=== PATIENT | male | born 1965 | race Caucasian/White ===

== ENCOUNTER 2019-09-02 11:00 | Outpatient (RCR) | payer OTHER, SELFPAY ==
--- NOTE | 2019-08-13 15:46 | PTOPEVAL ---
PHYSICAL THERAPY EVALUATION AND PLAN OF CARE 08-13-2019 The PT evaluation was completed for the diagnosis of back pain, with radiculopathy. The plan of treatment is scheduled for 2x/week for 3 weeks. Thank you for referring Evan to [facility]. Please review, sign, date and return this plan of care [facility]. I agree with and certify that the following plan of care is medically necessary. Referring Physician Date Attending Provider: Adalgisa Winston, BENCH MOLDER *PT Outpatient Evaluation Start: 08/13/19 12:37 Document 08/13/19 12:30 RASHMI (Rec: 08/13/19 13:27 RASHMI [email or web address]) Therapy Assessment Status Assessment Status Assessment Status Evaluation Outpatient Past Medical History Neurological History Hx Other Neurological Disorders Yes: syncopy episodes-have not had past month Cardiovascular History Hx Hypertension Yes: meds Respiratory History Hx Respiratory Disorders No Significant History Gastrointestinal History Hx Hernia Yes: hernia repair; have hernia again Hx Other Gastrointestinal Disorders Yes: colon resection surgery; then develop stricture-surg Genitourinary History Hx Other Genitourinary Disorders Yes: enlarged prostate- increase urination Musculoskeletal History Hx Arthritis Yes: await shoulder surgery L- rot cuff repair Hx Back Pain Yes: chronic pain >10 yr Hx Orthopedic Surgery Yes: R knee arthroscopy Hx Other Musculoskeletal Disorders Yes: neck pain;B knee pain,B sh pain;R ankle bones deteriorate Hematological History Hx Anemia Yes: monitoring iron Endocrine History Hx Diabetes Yes: monitoring HEENT History Hx Other HEENT Disorders Yes: ringing in ears Evaluation Information Problem Diagnosis lumbar spondylosis with radiculopathy Onset 6 months Subjective Information gradual increase in chronic Query Text:As Reported By Patient/ low back pain; saw pain Family management dr, will not do injections until have PT; Diagnostic Tests MRI For This Problem Yes: per pt-2 herniated discs, degenerative disc disease Previous Treatments Previous Treatments For This Problem no PT treatment for back; Prior Level of Function Activity Level (Last 3 Months) Occupation not working outside home;not work x 3 yrs;on disability; Hand Dominance Left Activity of Daily Living Ability Independent Indoor/Home Mobility Independent Community Mobility Independent
--- NOTE | 2019-09-02 11:36 | PTOPEVAL ---
PHYSICAL THERAPY RE-EVALUATION 09-02-2019 Evan has received 5 Physical Therapy sessions, from August 13 to today, for the diagnosis of lumbar spondylosis. Compared to the initial evaluation: pain rating is the same; continues to have radicular pain into L buttock; reported sitting tolerance is less; Oswestry self assessment limitation has improved from 54% to 44% limitation; hamstring flexibility and standing posture is the same. Evan has been educated on a home exercise program for stretching and strengthening his trunk and hips. The electrical stim and heat decrease his pain. A home TENS unit has been discussed with him. He has multiple areas of pain--neck, shoulders, abdomen from hernia, back and knees. Mr. Ambrosio has a follow up appointment. If PT is to continue, please give him a new script to continue PT treatment. If an additional order is not received, he will be discharged from PT services. Thank you for referring Evan to [facility]. Please review, sign, date and return this plan of care AARON. I agree with and certify that the following plan of care is medically necessary. Referring Physician Date Attending Provider: Adalgisa Winston, BRILLIANDEER LOOPER *PT Outpatient Re-Evaluation Document 09/02/19 11:06 RASHMI (Rec: 09/02/19 11:28 RASHMI [email or web address]) Subjective Information Evan reports: since therapy Query Text:As Reported By Patient/ has started, back pain is little Family worse- but always have had good days and bad days; have been doing exercises at home; not sure any different since started therapy; not very active; knees more sore and neck and shoulder hurting today too; also have pain from hernia- wearing binder to contain it; Self assessment Oswestry score 44% limitation Pain Assessment Timing of Pain Assessment Timing of Pain Assessment Assessment Pain Scale Pain Scale Used Numeric (1 - 10) Self Report Pain Assessment Bilateral Back Reported Pain Level 5 Radicular Pain Location into L buttock; stiff, sharp Pain Frequency Chronic Current Pain Intensity 5 Lowest Pain Intensity 2 Greatest Pain Intensity 5 Other Pain Aggravating Factors sit for 1 hour; stand and do dishes Pain Relief Interventions Used By Lying Supine Patient Pain Score Pain Score 5: Self Report Cervical and Lumbar ROM Lumbar ROM Lumbar Comments standing trunk flexion hands to below knees- increase back pain; trunk extension WNL increase back pain; supine hamstring length with
--- NOTE | 2019-09-07 11:51 | PCPTNOTE ---
PHYSICAL THERAPY UPDATED PLAN OF CARE Evan Ambrosio : 63 ordering provider: Adalgisa Winston [facility] Received additional PT orders to continue PT services. Refer to the reevaluation dated 09-02-2019 for his status. PLAN: continue PT treatment 2x/week for 4 weeks. Pleas sign and return this updated plan of care AARON. Thank you for referring Mr. Ambrosio for [facility] services. signature date
--- NOTE | 2019-09-23 11:46 | PCPTNOTE ---
PHYSICAL THERAPY DISCHARGE 09-23-2019 Attending Provider: Adalgisa Winston NP Patient:Evan Ambrosio Date of :1965 Evan called today and stated he was not needing any more therapy. Therefore he will be discharged from therapy at this time. Refer to the reevaluation dated 09-02-2019 for his status at the last PT session. Thank you for referring Mr. Ambrosio to [facility]. Please review, sign, date and return this discharge summary AARON. I have been updated about the patient's current status and I agree with discharge from the above service at this time. Referring Physician Date
== END 2019-09-24 15:35 | disposition home or self-care (01) ==
LOC: ANHPT 11:00
PROVIDERS: PCP Emergency Medicine; Visit Provider Nurse Practitioner Adult Health
DX: M47.26 Other spondylosis with radiculopathy, lumbar region (principal)
CPT/HCPCS: 97014; 97110; 97162; G0283

== ENCOUNTER 2023-08-25 11:42 | Outpatient (CLI) | payer OTHER, SELFPAY ==
[2023-08-25 12:14] LABS: Basophils Percent Auto 0.3 % (0.2-1.2); Eosinophils Absolute Auto 0.1 K/mm3 (0-0.3); Eosinophils Percent Auto 0.8 % (0-4.4); Hematocrit 46.5 % (42.0-52.0); Hemoglobin 15.6 g/dL (14.0-18.0); Immature Granulocyte Absolute 0.11 K/mm3 (0.00-0.031); Immature Granulocyte Percent A 0.9 % (0-0.5); Lymphocytes Percent Auto 16.4 % (18.3-44.2); Mean Corpuscular HGB Conc 33.5 g/dl (32-36); Mean Corpuscular Hemoglobin 31.8 pg (26-34); Mean Corpuscular Volume 94.9 fl (80-100); Mean Platelet Volume 9.6 fl (7.4-10.4); Monocytes Absolute Auto 0.9 K/mm3 (0.1-0.6); Monocytes Percent Auto 7.3 % (2.6-8.5); Neutrophils Absolute Auto 9.1 K/mm3 (1.3-6.7); Neutrophils Percent Auto 74.3 % (45.5-73.1); Platelet Count Result 203 k/mm3 (150-375); Red Cell Distribution Width 13.6 % (11.5-14.5); White Blood Count 12.2 K/mm3 (4.5-10.0)
[2023-08-25 14:10] LABS: Iron 118 ug/dL (49-181)
[2023-08-25 14:16] LABS: Alanine Aminotransferase 35 U/L (6-50); Albumin Level 4.2 g/dL (3.5-5.1); Alkaline Phosphatase 58 U/L (38-126); Anion Gap 6 mmol/L (8-16); Aspartate Amino Transferase 24 U/L (17-59); Bilirubin,Total 0.5 mg/dL (0.2-1.3); Blood Urea Nitrogen 19 mg/dL (9-20); CRP < 0.5 mg/dL (<1.0); Calcium 9.7 mg/dL (8.4-10.2); Carbon Dioxide 26 mmol/L (22-30); Chloride 102 mmol/L (98-107); Estimated Glomerular Filt Rate > 60; Glucose 99 mg/dL (65-110); Potassium 4.1 mmol/L (3.4-5.0); Sodium 134 mmol/L (137-145)
[2023-08-25 14:20] LABS: Percent Iron Saturation 42 % (20-50)
[2023-08-25 14:49] LABS: Erythrocyte Sedimentation Rate 6 mm/hr (0-20)
== END 2023-08-25 11:43 | disposition home or self-care (01) ==
LOC: ANHLAB 11:45
PROVIDERS: Nurse Practitioner Family; PCP Emergency Medicine; Visit Provider Internal Medicine Hematology & Oncology
DX: D72.829 Elevated white blood cell count, unspecified (principal); E53.8 Deficiency of other specified B group vitamins
CPT/HCPCS: 36415; 80053; 82607; 83540; 83550; 85025; 85055; 85652; 86140

== ENCOUNTER 2024-04-06 12:28 | Outpatient (CLI) | payer OTHER, SELFPAY ==
--- NOTE | 2024-04-06 15:00 | NEURO_ITS ---
Impression: # Complains of cramps in hands and feet. No history of neck or back surgery. # Left ulnar neuropathy across the elbow. # No responses noted from right peroneal and superficial peroneal nerves. # Needle/EMG exam revealed right EDB neurogenic changes raising the possibility of higher involvement. MRI of spine suggested before diagnosing for only right peroneal neuropathy. Nerve Conduction Studies Anti Sensory Summary Table Stim Site NR Peak (ms) P-T Amp (?V) Site1 Site2 Delta-P (ms) Dist (cm) Kwesi (m/s) Left Median Anti Sensory (2-3nd Digit) Wrist 3.7 29.6 Wrist 2-3nd Digit 3.7 14.0 38 Wrist 3.7 43.0 Wrist 2-3nd Digit 3.7 14.0 38 Right Median Anti Sensory (2-3nd Digit) Wrist 3.6 26.1 Wrist 2-3nd Digit 3.6 14.0 39 Wrist 3.7 24.3 Wrist 2-3nd Digit 3.6 14.0 39 Left Radial Anti Sensory (Base 1st Digit) Wrist 2.0 23.2 Wrist Base 1st Digit 2.0 0.0 Right Radial Anti Sensory (Base 1st Digit) Wrist 3.1 9.0 Wrist Base 1st Digit 3.1 0.0 Left Sup Fibular Anti Sensory (Ant Lat Mall) 14 cm 3.4 9.0 14 cm Ant Lat Mall 3.4 16.0 47 Right Sup Fibular Anti Sensory (Ant Lat Mall) NO RESPONSE 14 cm NR 14 cm Ant Lat Mall 16.0 Left Sural Anti Sensory (Lat Mall) Calf 4.5 6.6 Calf Lat Mall 4.5 16.0 36 Right Sural Anti Sensory (Lat Mall) Calf 3.6 21.8 Calf Lat Mall 3.6 16.0 44 Left Ulnar Anti Sensory (5th Digit) Wrist 2.8 26.2 Wrist 5th Digit 2.8 14.0 50 Right Ulnar Anti Sensory (5th Digit) Wrist 2.6 39.1 Wrist 5th Digit 2.6 14.0 54 Motor Summary Table Stim Site NR Onset (ms) O-P Amp (mV) Site1 Site2 Delta-0 (ms) Dist (cm) Kwesi (m/s) Left Median Motor (Abd Poll Brev) Wrist 3.4 3.7 Elbow Wrist 5.6 31.0 55 Elbow 9.0 3.1 Right Median Motor (Abd Poll Brev) Wrist 3.6 2.1 Elbow Wrist 5.5 31.0 56 Elbow 9.1 1.7 Left Peroneal Motor (Vastus Med) Ankle 4.2 2.9 Popit Ankle 9.5 45.0 47 Popit 13.7 2.7 Right Peroneal Motor (Vastus Med) NO RESPONSE Ankle NR Popit Ankle 0.0 Popit NR Left Tibial Motor (Abd Patel Brev) Ankle 4.5 2.4 Knee Ankle 9.9 46.0 46 Knee 14.4 3.0 Right Tibial Motor (Abd Patel Brev) Ankle 4.5 3.2 Knee Ankle 10.6 45.0 42 Knee 15.1 2.6 Left Ulnar Motor (Abd Dig Minimi) Wrist 2.5 4.5 A Elbow Wrist 6.6 32.0 48 A Elbow 9.1 4.0 B Elbow Wrist 4.4 24.0 55 B Elbow 6.9 4.4 Right Ulnar Motor (Abd Dig Minimi) Wrist 2.6 5.1 A Elbow Wrist 5.8 33.0 57 A Elbow 8.4 4.1 F Wave Studies NR F-Lat (ms) L-R F-Lat (ms) Left Median (Mrkrs) (Abd Poll Brev) 31.98 1.84 Right Median (Mrkrs) (Abd Poll Brev) 30.14 1.84 Left Peroneal (Mrkrs) (EDB) 58.32 Right Peroneal (Mrkrs) (EDB) NO RESPONSE NR Left Tibial (Mrkrs) (Abd Hallucis) 59.11 0.74 Right Tibial (Mrkrs) (Abd Hallucis) 59.84 0.74 Left Ulnar (Mrkrs) (Abd Dig Min) 31.33 0.76 Right Ulnar (Mrkrs) (Abd Dig Min) 30.57 0.76 EMG Side Muscle Nerve Root Ins Act Fibs Amp Dur Recrt Comment Right 1stDorInt Ulnar C8-T1 Nml Nml Nml Nml Nml Right Ext Indicis Radial (Post Int) C7-8 Nml Nml Nml Nml Nml Right Ext Digitorum Radial (Post Int) C7-8 Nml Nml N
== END 2024-04-06 12:29 | disposition home or self-care (01) ==
LOC: ANHNEURO 12:30
PROVIDERS: PCP Emergency Medicine; Visit Provider Student in an Organized Health Care Education/Training Program
DX: G56.22 Lesion of ulnar nerve, left upper limb (principal)
CPT/HCPCS: 95886; 95913

== ENCOUNTER 2024-10-09 08:56 | Outpatient (CLI) | payer OTHER, SELFPAY ==
--- NOTE | ~2024-10-09 | XR_ITS ---
EXAMINATION: XR orbit foreign body DATE: 10/09/2024 09:35 INDICATION: Orbital foreign body. TECHNIQUE: 3 views of the orbits were obtained. COMPARISON: None. FINDINGS: There is no fracture. No radiopaque foreign body. IMPRESSION: 1. No radiopaque foreign body. Reviewed, dictated and finalized at location A.
--- NOTE | ~2024-10-09 | MR_ITS ---
MRI of the lumbar spine Clinical History: Polyneuropathy Technique: Axial T2-weighted images, and sagittal T1-weighted, T2-weighted, and T2 fat-sat images wer e acquired. Findings: No acute fracture or subluxation identified. Vertebral bodies maintain normal height and al ignment. No suspicious bone marrow signal abnormality seen. At L1-L2, there is mild to moderate facet arthropathy without disc bulge or herniation. No spinal can al stenosis or neural foraminal narrowing. At L2-L3, there is no disc bulge or herniation. There is mild to moderate facet arthropathy. No centr al canal stenosis or neural foraminal narrowing. At L3-L4, there is minimal disc bulge with moderate facet arthropathy. No central canal stenosis or n eural foraminal narrowing. At L4-L5, there is degenerative disc narrowing with mild disc bulge and moderate facet arthropathy. N o central canal stenosis or definite neural foraminal narrowing. At L5-S1, there is moderate degenerative disc narrowing. There is disc bulge with moderate facet arth ropathy. No central canal stenosis. There is severe right neural foraminal narrowing. Left neural for amen preserved. Paravertebral soft tissues are unremarkable. Impression: Severe right neural foraminal narrowing at L5-S1. Additional mild degenerative changes. Please see de tails above. Reviewed, dictated and finalized at [facility]. Impression: Severe right neural foraminal narrowing at L5-S1. Additional mild degenerative changes. Please see details above.
--- OUTSIDE RECORDS SUMMARY | 2024-10-09 08:59 | XMS_ITS | Encounter Summary ---
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 us Historical Provider Final Res ult documented in this encounter Visit Diagnoses Not on filedocumented in this encounter Additional Health Concerns Infection Onset Date Last Indicated Resolved Time COVID: Suspected 10/18/2022 10/18/2022 10/18/2022 6:23 PM CDT COVID19 10/18/2022 10/18/2022 10/28/2022 3:05 AM CDT COVID: Recovered Comment:Added based on recent COVID infection. 10/28/2022 10/29/2022 01/26/2023 3:05 AM C DT documented as of this encounter Care Teams Industrial Court Magistrate Relationship Specialty Start Date End Date Brian Bryson MD PCP - General 08/30/18 Hao Gutierrez MD [address] [place] [address] [place] [id number] Consulting Physician Orthopedic Surgery 03/16/24 documented as of this encounter
--- OUTSIDE RECORDS SUMMARY | 2024-10-09 08:59 | XMS_ITS | Encounter Summary ---
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 Gender Identity Male 11/24/2023 12:05 PM CDT Sexual Orientation Not on file documented as of this encounter Plan of Treatment Not on file documented as of this encounter Procedures Procedure Name Priority Date/Time Associated Diagnosis Comments PROCEDURE - RESULT 04/13/2018 12 :00 AM CDT documented in this encounter Results * PROCEDURE - RESULT (04/13/2018 12:00 AM CDT) Narrative 04/13/2018 12:00 AM CDT Ordered by an unspecified [...] documented as of this encounter Care Teams Garbage Pick Up Worker Relationship Specialty Start Date End Date Brian Bryson MD PCP - General 08/30/18 Hao Gutierrez MD [address] [place] [address] [place] [id number] Consulting Physician Orthopedic Surgery 03/16/24 documented as of this encounter
--- OUTSIDE RECORDS SUMMARY | 2024-10-09 08:59 | XMS_ITS | Clinical Summary ---
Author Organization [address] Address [address] [place] [address] Care Team Providers Care Timber Hand Name Role Phone Brian Bryson MD Primary Care Provider [phone] Hao Gutierrez MD Unavailable [phone] Allergies Active Allergy Reactions Criticality Noted Date Comments Adhesive Rash,Blisters High 01/21/2023 Amoxicillin-Pot Clavulanate Other (See comments) Low 10/06/2018 NEAR SYNCOPE Cilazapril Hives,Other (See comments) Medium 04/17/2017 Diaphoresis Ciprofloxacin Rash,Other (See comments),Dizziness Medium 11/13/2017 Dizziness/Light Headed Adverse reaction Cold sweats, dizzy. Quetiapine Unknown 08/04/2019 Medications finasteride (PROSCAR) 5 mg tabletIndications:b enign prostatic hyperplasia with lower urinary tract sx Take 1 tablet (5 mg total) by mouth every morning 12/10/19 19 Active gabapentin (NEURONTIN) 600 mg tabletIndications:N europathic Pain Take 2 tablets (1,200 mg total) by mouth 2 (two) times a day Active losartan (COZAAR) 50 mg tabletIndications:h ypertension Take 1 tablet (50 mg total) by mouth every morning 03/23/20 20 Active ferrous sulfate 325 mg (65 mg of elemental iron) tabletIndications:I ana Deficiency Anemia Take 1 tablet (325 mg total) by mouth every morning Active ergocalciferol (VITAMIN D) 50,000 unit capsule Take 1 capsule (50,000 Units total) by mouth once a week Friday Active multivit jcesmrnn-nwhq-HY-ca lcium (THERA-M) 9 mg iron-400 mcg tabletIndications:V itamin Deficiency Prevention Take 1 tablet by mouth every morning Active tiZANidine (ZANAFLEX) 2 mg tabletIndications:M uscle Spasm Take 1 tablet (2 mg total) by mouth every 6 (six) hours as needed for muscle spasms Active acetaminophen ER (TYLENOL) 650 mg 8 hr tablet Take 2 tablets (1,300 mg total) by mouth every 8 (eight) hours as needed for pain Active rOPINIRole (REQUIP) 0.5 mg tabletIndications:R estless Legs Syndrome Take 1 tablet (0.5 mg total) by mouth nightly Active pantoprazole DR (PROTONIX) 20 mg EC tabletIndications:T reatment of Non-Bleeding Gastric Disorder Take 1 tablet (20 mg total) by mouth 2 (two) times a day Active UNABLE TO FIND B12 injection q monthly Active omeprazole (PriLOSEC) 40 mg capsule Take 1 capsule (40 mg total) by mouth daily Alternates with protonix due to insurance Active senna-docusate (PERICOLACE) 8.6-50 mgIndications:const ipation Take 2 tablets by mouth nightly 02/14/20 23 Active polyethylene glycol (MIRALAX) 17 gram packetIndications:c onstipation Take 1 packet (17 g total) by mouth daily 02/15/20 23 Active omega 1-gib-fis-fish oil (Fish OiL) 1,000 mg (120 mg-180 mg) capsuleIndications: hypertriglyceridemi a Take 1 capsule (1,000 mg total) by mouth 2 (two) times a day 02/14/20 23 Active atorvastatin (LIPITOR) 40 mg tablet TAKE ONE TABLET BY MOUTH NIGHTLY 90 tablet 2 02/09/20 24 Active HYDROcodone-acetami nophen (NORCO) 7.5-325 mg per tabletIndications:P ain Take 1 tablet every 6 hours as needed for severe pain. 14 tablet 04/13/20 24 Active Additional Information Patient not taking.Reported on 10/06/2024 ketorolac (TORADOL) 10 mg tablet Take 1 tablet (10 mg total) by mouth every 6 (six) hours as needed for pain 20 tablet 04/13/20 24 Active Additional Information Patient not taking.Reported on 10/06/2024 traMADoL (ULTRAM) 50 mg tabletIndications:C hronic right shoulder pain Take 1 tablet (50 mg total) by mouth every 6 (six) hours as needed for pain (as needed for moderate pain) 14 tablet 04/19/[address] (CYMBALTA) 30 mg capsuleIndications: Chronic musculoskeletal pain TAKE 1 CAPSULE BY MOUTH EVERY DAY 90 capsule 1 06/28/20 24 Active aspirin 81 mg enteric coated tabletIndications:C erebral Thromboembolism Prevention Take 1 tablet (81 mg total) by mouth daily 90 tablet 3 07/28/19 25 Active amLODIPine (NORVASC) 5 mg tablet TAKE 1 TABLET (5 MG TOTAL) BY MOUTH DAILY 90 tablet 4 08/30/19 25 Active Hospital, Clinic, or Other Facility Administered Medication Ordered Dose Route Frequency Start Date End Date Status hyaluronate (MONOVISC) 88 mg/4 mL 88 mgIndications:Osteoar thritis of the Knee 88 mg intra-artic Once 10/06/2024 10/06/2024 Ende d Active Problems Problem Noted Date Diagnosed Date Nontraumatic complete tear of right rotator cuff 03/10/2024 S/P repair of ventral hernia 02/11/2023 Pre-operative cardiovascular examination, high r isk surgery 02/03/2023 Mixed hyperlipidemia 02/03/2023 Obstructive sleep apnea 02/03/2023 Incisional hernia, without obstruction or gangre ne 10/09/2022 Overview (10/09/2022): Added automatically from request for surgery [id number] Secondary localized osteoarthrosis of ankle and foot 02/07/2022 Dyspnea on exertion 11/07/2021 Rheumatoid factor positive 08/01/2021 Overview (03/24/2023): Last Assessment & Plan: Suspect low positive rheumatoid factor is related to chronic periodontal disease and gingivitis. The finding of a positive rheumatoid factor of undetermined clinical significance (with low pre-test probability for rheumatoid arthritis) without current history, examination findings, and/or additional available laboratory results for review, regarding this finding being consistent with the specific diagnosis of rheumatoid arthritis by [employer] classification criteria nor seems to suggest any other active inflammatory polyarthropathy at this time. Rheumatoid factors are nonspecific in nature and can be seen in otherwise healthy individuals and generally are more frequently found in older age groups. Rheumatoid factor can be seen as an immunologic phenomena in patients with chronic infections (e.g. tuberculosis, syphilis, hepatitis C), chronic gingivitis and periodontal disease, cryoglobulinemia, and pulmonary fibrosis. Additional evaluation should be considered in clinically indicated cases. Partial small bowel obstruction 04/30/2021 Assessment & Plan (04/30/2021 5:00 PM CDT): Pt will be admitted, surgery consulted in ER, keep NPO except ice chips, NGT placed in ER, will keep to intermittent LWS. IVF along with symptomatic treatment Osteoarthritis of multiple joints 04/30/2021 Assessment & Plan (04/30/2021 5:02 PM CDT): With neuropathy, prn IV pain meds for now, can resume home meds when GI system working properly Essential hypertension 04/30/2021 Assessment & Plan (04/30/2021 5:02 PM CDT): Monitor, prn hydralazine for now Gastroesophageal reflux disease without esophagi tis 04/30/2021 Assessment & Plan (04/30/2021 5:03 PM CDT): IV PPI Benign prostatic hyperplasia without lower urinary tract symptoms 04/30/2021 Assessment & Plan (04/30/2021 5:03 PM CDT): Monitor, will resume home meds when able Carotid artery stenosis 01/31/2021 Acquired pes planus of right foot 01/10/2021 Pain in right foot 01/10/2021 Leg skin lesion, right 12/07/2020 Obesity 11/29/2020 Lung nodule 04/13/2020 Diverticulitis of colon 08/04/2019 Arthropathy of left shoulder 08/04/2019 AC joint arthropathy 05/27/2019 Rotator cuff arthropathy, left 05/27/2019 Prepatellar bursitis of right knee 05/13/2019 Rotator cuff syndrome of right shoulder 02/05/20 19 Chronic left shoulder pain 01/05/2019 Rotator cuff syndrome of left shoulder 06/25/201 9 Diverticulitis 09/29/2018 Electrocardiogram abnormal 09/29/2018 Peptic ulcer 09/29/2018 Syncope 09/29/2018 Hearing loss 04/08/2018 Other chronic pain 04/08/2018 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 18 Overview (03/24/2023): 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 Arthritis of right foot 01/19/2018 Family history of diabetes mellitus 01/19/2018 Marijuana use 01/19/2018 Obesity (BMI 30.0-34.9) 01/19/2018 Small bowel anastomotic stricture 01/01/2018 Anemia of unknown etiology 04/17/2017 Acute diverticulitis of intestine 04/20/2016 Arthralgia of ankle 01/02/2016 Traumatic arthritis of ankle 01/02/2016 Peroneal tendinitis of right lower extremity Atypical chest pain 07/01/2015 Plantar fasciitis 06/07/2015 Abdominal pain Hyponatremia Ventral hernia without obstruction or gangrene Encounters Date Type Department Care Team Description 10/06/2024 11:57 AM CDT - 10/06/2024 11:59 PM CDT Hospital Encounter [facility] MOB 1 DIAG IMG [address] [place] [address] Chronic pain of left knee Discharge Disposition: Discharge to home or self care 10/06/2024 11:45 AM CDT Office Visit [facility] Orthopedics and Sports Medicine [address] [place] [address] [place] [phone] Hao Gutierrez MD Chronic right shoulder pain (Primary Dx); Chronic pain of left knee 10/05/2024 10:00 AM CDT Therapy [facility] Should[facility] [address] [address] Minna Andrade PTA S/P rotator cuff repair (Primary Dx) 09/23/2024 9:15 AM CDT Therapy [facility] [address] [address] Belem Trimble PTA S/P rotator cuff repair (Primary Dx) 09/20/2024 9:15 AM CDT Therapy [facility] OP Physical Therapy [address] [place] [address] [address] [place] [address] Juanita James, MACHINE WORKER S/P rotator cuff repair (Primary Dx) 09/16/2024 2:15 PM SENIOR NET C DEVELOPER Therapy [facility] [address] [place] [address] Belem Trimble, MACHINE WORKER S/P rotator cuff repair (Primary Dx) 09/15/2024 10:00 AM SENIOR NET C DEVELOPER Therapy [facility] [address] [place] [address] Belem Trimble, MACHINE WORKER S/P rotator cuff repair (Primary Dx) 08/20/2024 7:45 AM SENIOR NET C DEVELOPER Therapy [facility] [address] [place] [address] Esteban Marlow, PT S/P rotator cuff repair (Primary Dx) 08/20/2024 Plan of Care Documentation [facility] [address] [place] [address] 08/20/2024 Telephone [facility] [address] [place] [address] [address] [place] [address] Hao Gutierrez MD 08/13/2024 1:30 PM SENIOR NET C DEVELOPER Therapy [facility] [address] [place] [address] Belem Trimble, MACHINE WORKER S/P rotator cuff repair (Primary Dx) 08/10/2024 1:30 PM SENIOR NET C DEVELOPER Therapy [facility] [address] [place] [address] Belem Trimble, MACHINE WORKER S/P rotator cuff repair (Primary Dx) 08/06/2024 12:45 PM SENIOR NET C DEVELOPER Therapy [facility] [address] [place] [address] [place] [address] Jn Bernal, MACHINE WORKER S/P rotator cuff repair (Primary Dx); Complete tear of right rotator cuff, unspecified whether traumatic 08/04/2024 2:15 PM SENIOR NET C DEVELOPER Therapy [facility] [address] [address] Esteban Marlow, PT S/P rotator cuff repair (Primary Dx) 07/28/2024 11:00 AM SENIOR NET C DEVELOPER Office Visit [facility] Medical [facility] Cardiology [address] [facility] [address] [place] [phone] William Devine MD Essential hypertension (Primary Dx); Mixed hyperlipidemia; Stenosis of carotid artery, unspecified laterality; Obstructive sleep apnea; Obesity (BMI 30.0-34.9) 07/22/2024 Telephone [facility] Orthopedics and Sports Medicine [address] [facility] [address] [place] [phone] Hao Gutierrez MD [facility], left knee 07/21/2024 12:45 PM SENIOR NET C DEVELOPER Therapy [facility] [address] [address] Esteban Marlow, PT S/P rotator cuff repair (Primary Dx) 07/15/2024 12:45 PM SENIOR NET C DEVELOPER Therapy [facility] [address] [address] Belem Trimble, MACHINE WORKER S/P rotator cuff repair (Primary Dx) 07/12/2024 12:45 PM SENIOR NET C DEVELOPER Therapy [facility] [address] [place] [address] Esteban Marlow, PT S/P rotator cuff repair (Primary Dx) from Last 3 Months Surgical History Surgery Date Site/Laterality Comments BOWEL RESECTION x2 FL FLUORO GUIDED INJECTION HIP LEFT 08/03/2021 Left FL FLUORO GUIDED INJECTION HIP LEFT 11/05/2021 Left FL FLUORO GUIDED INJECTION HIP LEFT 05/21/2022 Left CATARACT EXTRACTION, BILATERAL KNEE SURGERY Right APPENDECTOMY SPLENECTOMY, TOTAL HERNIA REPAIR SHOULDER ARTHROSCOPY W/ ROTA TOR CUFF REPAIR 03/14/2024 - 04/12/2024 Right Medical History Medical History Date Comments Diverticulitis Hypertension Arthritis Lumbar facet arthropathy DDD (degenerative disc disease), lumbar Anterolisthesis of lumbar spine, grade 1 L4 on L 5 08/28/2022 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 08/28/2022 Sleep apnea Hyperlipidemia Nontraumatic complete tear of right rotator cuff 03/10/2024 Arthralgia of ankle 01/02/2016 Essential hypertension 04/30/2021 Gastroesophageal reflux disease without esophagi tis 04/30/2021 Ventral hernia without obstruction or gangrene Mixed hyperlipidemia 02/03/2023 Obstructive sleep apnea 02/03/2023 Anemia of unknown etiology 04/17/2017 Lung nodule 04/13/2020 Marijuana use 01/19/2018 Hepatitis C test positive 07/22/2023 Infectious viral hepatitis Family History Medical History Relation Name Comments Arthritis Father Family history of arthritis - (Added by TW Conv) Cancer Mother Family history of malignant neoplasm - (Added by TW Conv) Anesthesia problems Neg Hx Relation Name Status Comments Father Mother Social History Tobacco Use Types Packs/Day Years Used Date Smoking Tobacco: Former Cigarettes Tobacco Cessation:Counseling Given: Not Answered AUDIT-C Answer Date Recorded Q1: How often do you have a drink containing alcohol? Never 03/10/2024 Q2: How many drinks containi ng alcohol do you have on a typical day when you are drinking? Patient does not drink Q3: How often do you have si x or more drinks on one occasion? Never 03/10/2024 Personal Safety Answer Date Recorded Have you ever been in or are you currently in a harmful physical or emotional relationship or is someone making you feel afraid or unsafe? Denies 03/16/2024 Sex and Gender Information Value Date Recorded Sex Assigned at Not on file Legal Sex Male 9:18 PM SENIOR NET C DEVELOPER Gender Identity Male 11/24/2023 12:05 PM CDT Sexual Orientation Not on file Obstetrics History Last Filed Vital Signs Vital Sign Reading Time Taken Comments Blood Pressure 128/66 07/28/2024 11:14 AM SENIOR NET C DEVELOPER Pulse 63 07/28/2024 11:14 AM SENIOR NET C DEVELOPER Temperature 36.7 C (98 F) 04/16/2024 10:42 AM CDT Respiratory Rate 18 04/13/2024 4:20 PM CDT Oxygen Saturation 97% 07/28/2024 11:14 AM SENIOR NET C DEVELOPER Inhaled Oxygen Concentration - - Weight 104.3 kg (230 lb) 07/28/2024 11:14 AM SENIOR NET C DEVELOPER Height 182.9 cm (6') 07/28/2024 11:14 AM SENIOR NET C DEVELOPER Body Mass Index 31.19 07/28/2024 11:14 AM SENIOR NET C DEVELOPER Plan of Treatment Health Maintenance Due Date Last Done Comments Colon Cancer Screening-Colonoscopy 1965 Depression Screening 1965 Regular Well Visit/Exam 18-64 1982 Zoster Vaccine (1 of 2) 2014 Prostate Cancer Screening-PSA 03/02/2023 03/02/2021, 06/11/2018 Influenza Vaccine (#1) 2024 DTaP/Tdap/Td Vaccine (2 - Td or Tdap) 01/20/2028 01/19/2018 Hepatitis B Screening Completed 07/22/2023 Hepatitis C Screening Completed 07/30/2023 , 07/25/2023, 07/22/2023, Additional history exists Pneumococcal vaccine <65 Aged Out No longer eligible based on patient's age to complete this topic Medical Devices Implanted Type Area Bottom Turner Device Identifier Shelf Expiration Date Model / Serial / Lot [employer]ol Inc/C R Bard [id number] Monofilament Soft Lightweight Low Profile Square - Sn/A - [id number] Implanted:Qty: 1 on 02/11/2023 by Jonathan Carlos MD at [facility] Mesh N/A: Abdomen [employer]/C R Bard [id number] 11/08/2026 [id number] / N/A / [id number] [employer] Tenodesis 7mm 23mm Acl Screw Interference Biocomposite Sterile Ar-[id number] - [id number] Implanted:Qty: 1 on 03/16/2024 by Hao Gutierrez MD at [facility] Right: Shoulder [employer] [id number] 06/12/2027 AR-1570BC / / [id number] [employer] Corkscrew Fiberwire 4.5mm 14mm 2 2 Full Thread Westfield Suture [id number] - [id number] Implanted:Qty: 1 on 03/16/2024 by Hao Gutierrez MD at [facility] Right: Shoulder [employer] [id number] 08/13/2027 AR-1927BC F-45 / / [id number] [employer] Corkscrew Fiberwire 4.5mm 14mm 2 2 Full Thread [place] Suture [id number] - [id number] Implanted:Qty: 1 on 03/16/2024 by Hao Gutierrez MD at [facility] Right: Shoulder [employer] [id number] 08/13/2027 AR-1927BC F-45 / / [id number] [employer] Swivelock C 4.75mm 19.1mm Closed Eyelet Vent [place] Suture Ar-2324bcc - [id number] Implanted:Qty: 1 on 03/16/2024 by Hao Gutierrez MD at [facility] Right: Shoulder [employer] [id number] 08/13/2027 AR-2324BC C / / [id number] [employer] Swivelock C 4.75mm 19.1mm Closed Eyelet Vent [place] Suture Ar-[id number] - [id number] Implanted:Qty: 1 on 03/16/2024 by Hao Gutierrez MD at [facility] Right: Shoulder [employer] [id number] 10/12/2027 AR-2324BC C / / [id number] Procedures Procedure Name Priority Date/Time Associated Diagnosis Comments XR KNEE LEFT 3 VIEWS Schedule Routine, Read Routine (OP Routine) 10/06/2024 12:07 PM CDT Chronic pain of left knee HEPATITIS PANEL, ACUTE Routine 07/22/2023 2:11 PM SENIOR NET C DEVELOPER PSA DIAGNOSTIC Routine 03/02/2021 3:34 PM CDT from Last 3 Months or Most Recently Relevant to Health Maintenance Results * XR Knee Left 3 Views (10/06/2024 12:07 PM CDT) Anatomical Region Laterality Modality Lower Extremities, Knee Left Computed Radiography 10/06/2024 12:5 7 PM CDT Narrative 10/06/2024 12:58 PM CDT EXAM DESCRIPTION: XR KNEE LEFT 3 VIEWS REASON FOR STUDY: pain COMPARISON: Left knee radiographs October 2022 FINDINGS: There is no evidence of overt change in position or alignment of the knee with maintenance of joint space at the medial and lateral compartment. There is evidence of persistent advanced degenerative changes about the left knee predominately at the lateral facet with associated lateral patellar osteophyte. IMPRESSION: 1. Evidence of degenerative changes about the left knee most predominately at the patellofemoral joint region THIS IS AN ELECTRONICALLY VERIFIED FINAL REPORT 10/06/2024 12:58 PM - Electronically signed by Hao Gutierrez MH: DAVION Report ID: [id number] Reading Location: [place] [address] Procedure Note Hao Gutierrez MD - 10/06/2024 EXAM DESCRIPTION: XR KNEE LEFT 3 VIEWS REASON FOR STUDY: pain COMPARISON: Left knee radiographs October 2022 FINDINGS: There is no evidence of overt change in position or alignment of the kneewith maintenance of joint space at the medial and lateral compartment. Thereis evidence of persistent advanced degenerative changes about the left knee predominately at the lateral facet with associated lateral patellar osteophyte. IMPRESSION: 1. Evidence of degenerative changes about the left knee most predominately at the patellofemoral joint region THIS IS AN ELECTRONICALLY VERIFIED FINAL REPORT 10/06/2024 12:58 PM - Electronically signed by Hao Gutierrez MH: DAVION Report ID: [id number] Reading Location: [place] [address] Hao Gutierrez MD IMG XR PROCEDURES Final Result * (ABNORMAL) Hepatitis panel, acute Blood (07/22/2023 2:11 PM SENIOR NET C DEVELOPER) Hep A IgM Nonreactive Nonreactive [facility] Comment: Interpretive Data: If Hep A IgM Ab is reported as Equivocal, a new sample should be drawn in two weeks for testing. Current interpretive data was last revised on 19. Hep B core IgM Nonreactive Nonreactive [facility] Comment: Interpretive Data If HepB Core IgM Ab is reported as Equivocal, a new sample should be drawn in two weeks for testing. Current interpretive data was last revised on 19. Hep C Ab Reactive(A) Nonreactive [facility] Comment: Reactive for HCV antibodies. This may represent current or past HCV infection. Supplemental molecular testing will be automatically performed to determine current infection status in accordance with current CDC screening recommendations. Current interpretive data was last revised on 22 Interpretive Data Nonreactive: Antibodies to HCV not detected. Does NOT exclude the possibility of recent exposure to HCV. Equivocal: Equivocal for HCV antibodies. Supplemental molecular testing will be automatically performed to determine infection status in accordance with current CDC screening recommendations. Reactive: Positive for HCV antibodies. This may represent current or past HCV infection. Supplemental molecular testing will be automatically performed to determine current infection status in accordance with current CDC screening recommendations. Interpretive data was last revised on 2019. HepBsAg Nonreactive Nonreactive [facility] Blood 07/22/2023 2:11 PM SENIOR NET C DEVELOPER 07/22/2023 6:02 PM SENIOR NET C DEVELOPER Lucas Lopez MD LAB MICROBIOLOGY - GENERAL KRYSTIN GAXIOLA Final Result [facility] [address] [facility] Department of Laboratories [place], [place] [id number] * PSA diagnostic (03/02/2021 3:34 PM CDT) PSA-Total 0.10 <=3.90 ng/mL [facility] Comment: Interpretive Data AGE SEX REFERENCE INTERVAL 0 minutes-150 years Female None 0 minutes-49 years Male None 50-59 years Male 0-3.90 60-69 years Male 0-5.40 70-79 years Male 0-6.20 80-150 years Male 0-6.20 Current interpretive data last revised 2018. Blood 03/02/2021 3:34 PM CDT 03/02/2021 3:58 PM CDT Pam Hercules GOVERNMENT CLERK LAB BLOOD ORDERABLES Final Result [facility] [address] [facility] Department [place] [address] from Last 3 Months or Most Recently Relevant to Health Maintenance Insurance Member Subscriber Plan / Payer (Ef fective 2021-Present) Name:Evan Ambrosio Relation to Subscriber:Self Name:Evan Ambrosio Payer ID:[id number] (NAIC) Type:MEDICAID RISK OTHER Address: [address] [place], [place] [phone] [place] [address] [facility] Advance Directives For more information, please contact: [phone] * Full Code (Latest Code Status on File) Date Activated Date Inactivated Comments 02/11/2023 5:07 PM 02/13/2023 7:05 PM * Full Code Date Activated Date Inactivated Comments 04/30/2021 11:13 PM 05/04/2021 12:45 AM Care Teams Timber Hand Relationship Specialty Start Date End Date Brian Bryson MD PCP - General 08/30/18 Hao Gutierrez MD [address] [facility] [address] [place] [address] [place] [phone] Consulting Physician Orthopedic Surgery 03/16/24
--- OUTSIDE RECORDS SUMMARY | 2024-10-09 08:59 | XMS_ITS | Encounter Summary ---
Author Organization [facility] Facility Care Team Providers Care Manager Pe Name Role Phone Brian Bryson MD Primary Care Provider [phone] Hao Gutierrez MD Unavailable [phone] Encounter Details Date Type Department Care Team (Latest Contact Info) Description 01/30/2018 Orders Only [facility] CLINCONV ProviderGunnar MD [address] [place] [address] Social History Tobacco Use Types Packs/Day Years Used Date Smoking Tobacco: Every Day Sex and Gender Information Value Date Recorded Sex Assigned at Not on file Legal Sex Male 9:18 PM CRISIS COUNSELOR Gender Identity Male 11/24/2023 12:05 PM CDT Sexual Orientation Not on file documented as of this encounter Plan of Treatment Not on file documented as of this encounter Procedures Procedure Name Priority Date/Time Associated Diagnosis Comments SCAN - PATHOLOGY 04/09/2018 12:0 0 AM CDT documented in this encounter Results * SCAN - PATHOLOGY (04/09/2018 12:00 AM CDT) Narrative 04/09/2018 12:00 AM CDT Ordered by an unspecified [...] documented as of this encounter Care Teams Manager Pe Relationship Specialty Start Date End Date Brian Bryson MD PCP - General 08/30/18 Hao Gutierrez MD [address] [facility] [address] [address] [place] [address] Consulting Physician Orthopedic Surgery 03/16/24 documented as of this encounter
--- OUTSIDE RECORDS SUMMARY | 2024-10-09 09:00 | XMS_ITS | Encounter Summary ---
Author Organization [facility] Address [address] [place] [address] Phone Care Team Providers Care Business Sales Consultant Name Role Phone Brian Bryson MD Primary Care Provider [phone] Harvey Jaimes MD Unavailable [phone] Lucas Lopez MD Unavailable [phone] Reason for Visit * Reason Comments Medication Refill Encounter Details Date Type Department Care Team (Late st Contact Info) Description 07/25/2022 Refill [facility] [address] [place] [address] Harvey Jaimes MD [address] [address] Medication Refill Social History Tobacco Use Types Packs/Day Years Used Date Smoking Tobacco: Never Smokeless Tobacco: Never Alcohol Use Standard Drinks/Week Comments No 0 (1 standard drink = 0.6 oz pur e alcohol) PHQ-2 Answer Date Recorded Total Score - Questions 1-9 0 09/12 Sex and Gender Information Value Date Recorded Sex Assigned at Not on file Legal Sex Male 3:34 PM CDT Gender Identity Not on file Sexual Orientation Not on file COVID-19 Exposure Response Date Recorded In the last 10 days, have yo u been in contact with someone who was confirmed or suspected to have Coronavirus/COVID-19? No / Unsure 07/22/2022 10:40 AM LARGE ENGINE ASSEMBLER documented as of this encounter Miscellaneous Notes * Telephone Encounter - Patt Almazan - 07/25/2022 10:21 AM CST Please refill if appropriate. E ENGINE ASSEMBLER * Telephone Encounter - Almazan, Patt L - 07/25/2022 9:01 AM CST please E ENGINE ASSEMBLER documented in this encounter Plan of Treatment Upcoming Encounters Date Type Department Care Team (Late st Contact Info) Description 10/22/2024 9:00 AM CDT Ancillary Procedure [facility] [address] [phone] 11/05/2024 9:15 AM CDT [facility] [address] [phone] Harvey Jaimes MD [address] [address] documented as of this encounter Visit Diagnoses Diagnosis Anemia of unknown etiology Anemia, unspecified documented in this encounter Additional Health Concerns Assessment Noted Time PHQ-9 Depression Total Score: 0 12/08/19 21 1:48 PM CDT documented as of this encounter Care Teams Business Sales Consultant Relationship Specialty Start Date End Date Brian Bryson MD [address] [address] PCP - General Family Medicine 11/14/20 Harvey Jaimes MD [address] [place] [phone] Consulting Physician Oncology 10/18/21 Lucas Lopez MD [address] [place] [address] Gastroenterology 03/06/22 documented as of this encounter
--- OUTSIDE RECORDS SUMMARY | 2024-10-09 09:00 | XMS_ITS | Clinical Summary ---
Author Organization [facility] Address [facility] [place] [address] Care Team Providers Care Landcare Facilitator Name Role Phone Brian Bryson MD Primary Care Provider [phone] Allergies Active Allergy Reactions Criticality Noted Date Comments Amoxicillin-Pot Clavulanate Other (see comment) 10/06/2018 NEAR SYNCOPE Cilazapril Other (see comment),Hives 04/17/2017 Diaphoresis Diaphoresis Ciprofloxacin Unknown 11/13/2017 Adverse reaction Medications omeprazole 40 MG capsule Take 40 mg by mouth 2 (two) times daily. 3 12/09/2018 Active amlodipine 5 MG tablet Take 5 mg by mouth daily. 3 12/09/2018 Active lisinopril 10 MG tablet Take 10 mg by mouth daily. 2 12/09/2018 Active finasteride 5 MG tablet Take 5 mg by mouth daily. 3 12/09/2018 Active Polyethylene Glycol 3350 Powder USE 1 PACKET DIRECTED WITH 1 8OZ GLASS OF WATER DAILY 0 04/24/2018 Active acetaminophen 325 MG tablet 04/08/2016 Activ e tizanidine 2 MG tablet 03/29/2019 Active gabapentin 300 MG capsule Take 900 mg by mouth 3 (three) times daily. 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 Prepatellar bursitis of right knee 05/13/2019 Rotator cuff syndrome of right shoulder 02/05/20 19 Capsulitis of left shoulder 01/05/2019 Rotator cuff syndrome of left shoulder 9 Chronic left shoulder pain 01/05/2019 Family History Medical History Relation Comments Diabetes Father Parkinson's Disease Father Diabetes Mother Relation Status Comments Father Mother Alive Social History Tobacco Use Types Packs/Day Years Used Date Smoking Tobacco: Never Smokeless Tobacco: Never Alcohol Use Standard Drinks/Week Comments No 0 (1 standard drink = 0.6 oz pur e alcohol) AUDIT-C Answer Date Recorded Frequency of Alcohol Consumption Never 10/06/2018 Average Number of Drinks Not on file 019 Frequency of Binge Drinking Not on file 09/12 Sex and Gender Information Value Date Recorded Sex Assigned at Not on file Legal Sex Male 7:10 PM CDT Gender Identity Not on file Sexual Orientation Not on file Last Filed Vital Signs Vital Sign Reading Time Taken Comments Blood Pressure 108/60 07/01/2019 1:35 PM FRONT OFFICE DEVELOPER Pulse 63 07/01/2019 1:35 PM FRONT OFFICE DEVELOPER Temperature 36.3 C (97.4 F) 01/20/2019 1:20 PM CDT Respiratory Rate 20 01/20/2019 1:20 PM CDT Oxygen Saturation 95% 01/20/2019 1:20 PM CDT Inhaled Oxygen Concentration - - Weight 99.8 kg (220 lb) 07/01/2019 1:35 PM FRONT OFFICE DEVELOPER Height 182.9 cm (6') 01/20/2019 1:20 PM CDT Body Mass Index 29.84 01/20/2019 1:20 PM CDT Plan of Treatment Health Maintenance Due Date Last Done Comments Colorectal Cancer Screening Colonoscopy (10 Years) 1964 Meningococcal Vaccine (1 - R isk 2-dose series) 1966 Annual Physical 1967 Pneumococcal Vaccine: Pediat rics (0 to 5 Years) and At-Risk Patients (6 to 64 Years) (1 of 2 - PCV) 1970 Meningococcal B Vaccine (1 o f 5 - Increased Risk) 1974 Hepatitis C 1982 DTaP, Tdap and Td Vaccines ( 1 - Tdap) 1983 Zoster Vaccines (1 of 2) 2014 COVID-19 Vaccine ( - 2023-2 5 season) 2024 Influenza Adult (#1) 2024 RSV Immunization or 60+ Years (1 - 1-dose 75+ series) 2039 RSV Immunizations Under 20 Months Aged Out No longer eligible based on patient's age to complete this topic Insurance [employer] Care Teams Landcare Facilitator Relationship Specialty Start Date End Date Brian Bryson MD [address] [place] [address] PCP - General FAMILY PRACTICE 10/29/18
--- OUTSIDE RECORDS SUMMARY | 2024-10-09 09:00 | XMS_ITS | Encounter Summary ---
Author Organization [facility] Address [address] [facility] [place] [address] Care Team Providers Care Installation Supervisor Name Role Phone Brian Bryson MD Primary Care Provider [phone] Reason for Visit * Reason Comments Refill Request Encounter Details Date Type Department Care Team (Late st Contact Info) Description 09/28/2024 Refill [facility] [address] [place] [address], [facility] [place] [address] Raymundo Ochoa MD Refill Request Social History Tobacco Use Types Packs/Day Years Used Date Smoking Tobacco: Never Smokeless Tobacco: Never Alcohol Use Standard Drinks/Week Comments No 0 (1 standard drink = 0.6 oz pur e alcohol) Sex and Gender Information Value Date Recorded Sex Assigned at Not on file Gender Identity Not on file Sexual Orientation Not on file documented as of this encounter Functional Status Functional Status Response Date of Assess ment Is person deaf or have serious hearing difficult y? No 02/03/2018 Is person blind or have serious difficulty seein g? No 02/03/2018 Does person have serious dif ficulty walking/climbing stairs? No 02/03/2018 Does person have difficulty dressing/bathing? No 02/03/2018 Does person have difficulty doing errands alone? No 02/03/2018 Cognitive Status Response Date of Assessm ent Does person have difficulty concentrating/remembering/making decisions? No 02/03/2018 documented as of this encounter Plan of Treatment Upcoming Encounters Date Type Department Care Team (Late st Contact Info) Description 10/19/2024 11:00 AM CDT Office Visit [facility] [address] [facility] [place] [address] Ney Baxter PA [address] [place] [address] documented as of this encounter Visit Diagnoses Diagnosis Lower urinary tract symptoms (LUTS) Other symptoms involving urinary system documented in this encounter Care Teams Installation Supervisor Relationship Specialty Start Date End Date Brian Bryson MD [address] [facility] [address] [place] [address] PCP - General 05/21/18 documented as of this encounter
--- OUTSIDE RECORDS SUMMARY | 2024-10-09 09:00 | XMS_ITS | Encounter Summary ---
Author Organization [facility] Address [address] [place] [address] Phone Care Team Providers Care Sales Coordinator Name Role Phone Brian Bryson MD Primary Care Provider [phone] Harvey Jaimes MD Unavailable [phone] Lucas Lopez MD Unavailable [phone] Reason for Visit * Reason Comments Medication Refill Encounter Details Date Type Department Care Team (Late st Contact Info) Description 05/13/2021 Refill [facility] [address] [phone] Harvey Jaimes MD [address] [facility] [address] [address] Medication Refill Social History Tobacco Use Types Packs/Day Years Used Date Smoking Tobacco: Never Smokeless Tobacco: Never Alcohol Use Standard Drinks/Week Comments No 0 (1 standard drink = 0.6 oz pur e alcohol) PHQ-2 Answer Date Recorded Total Score - Questions 1-9 0 11/12 Sex and Gender Information Value Date Recorded Sex Assigned at Not on file Legal Sex Male 3:34 PM CDT Gender Identity Not on file Sexual Orientation Not on file documented as of this encounter Miscellaneous Notes * Telephone Encounter - Becky Houston LPN - 05/14/2021 11:07 AM CDT Please refill if appropriate. documented in this encounter Plan of Treatment Upcoming Encounters Date Type Department Care Team (Late st Contact Info) Description 10/22/2024 9:00 AM CDT Ancillary Procedure [facility] [address] [phone] 11/05/2024 9:15 AM CDT Office Visit [facility] [address] [phone] Harvey Jaimes MD [address] [facility] [address] [place] [address] documented as of this encounter Visit Diagnoses Not on filedocumented in this encounter Additional Health Concerns Assessment Noted Time PHQ-9 Depression Total Score: 0 12/08/19 1:48 PM CDT documented as of this encounter Care Teams Sales Coordinator Relationship Specialty Start Date End Date Brian Bryson MD [address] [address] PCP - General Family Medicine 11/14/20 Harvey Jaimes MD [address] [place] [phone] Consulting Physician Oncology 10/18/21 Lucas Lopez MD [address] [place] [address] Gastroenterology 03/06/22 documented as of this encounter
--- OUTSIDE RECORDS SUMMARY | 2024-10-09 09:00 | XMS_ITS | Encounter Summary ---
Author [facility] Address [address] [place] [address] Phone Care Team Providers Care Fire Support Specialist Name Role Phone Brian Bryson MD Primary Care Provider [phone] Harvey Jaimes MD Unavailable [phone] Lucas Lopez MD Unavailable [phone] Reason for Visit * Reason Comments Medication Refill Encounter Details Date Type Department Care Team (Late st Contact Info) Description 08/18/2023 Refill [facility] [address] [address] Havrey Jaimes MD [address] [address] Medication Refill Social History Tobacco [...] encounter Miscellaneous Notes * Telephone Encounter - Catrina Frazier RN - 08/18/2023 8:04 AM COMPUTER TRAINER Please fill if appropriate UTER TRAINER documented in this encounter Plan of Treatment Upcoming Encounters Date Type Department Care Team (Late st Contact Info) Description 10/22/2024 9:00 AM CDT Ancillary Procedure [facility] [address] [phone] 11/05/2024 9:15 AM CDT Office Visit [facility] [address] [place] [phone] Harvey Jaimes MD [facility] [facility] [address] [place] [address] documented as of this encounter Visit Diagnoses Diagnosis Anemia of unknown etiology Anemia, unspecified documented in this encounter Additional Health Concerns Assessment Noted Time PHQ-9 Depression Total Score: 0 12/08/19 1:48 PM CDT documented as of this encounter Care Teams Fire Support Specialist Relationship Specialty Start Date End Date Brian Bryson MD [address] [address] PCP - General Family Medicine 11/14/20 Harvey Jaimes MD [address] [place] [phone] Consulting Physician Oncology 10/18/21 Lucas Lopez MD [address] [place] [address] Gastroenterology 03/06/22 documented as of this encounter
--- OUTSIDE RECORDS SUMMARY | 2024-10-09 09:00 | XMS_ITS | Continuity of Care Document ---
Author Organization [facility] Address [address] [place] [address] ut[address] [place] [address] Phone Care Team Providers Care Fiberglasser Name Role Phone Kasia Gonzalez Unavailable Unavailable Advance Directives Directive Yes / No Effective Date File Name No Information Encounters Encounter Description Practice Location Reason(s) For Visit Diagnoses Date Provider Providers Copied on Encounter [facility], [address], [place], [place], [id number], [place] tel:[phone] [facility] No Information May-0 9-200 2 Lisa Pedroza. [address] [facility] , [address], [place], [address], [place]. tel:[phone] Family History Family Member Type Diagnosis Age At Onset No Information Payers Payer name Insurance type Covered alliance party ID Authoriza tion(s) No Information Social History Type Description Quantity Date Captured Comments Sex Male Smoking Status No Information Chief Complaint And Reason For Visit No Information Reason For Referral Reason For Referral No Information History Of Present Illness Encounter Date Complaint History Of Prese nt Illness No Information Functional Status Date Functional Assessmen t No Information Instructions Date Instruction Additional Infor mation No Information Assessments Type Assessment Date No Information Patient Care Teams Name Effective Dates (start - stop) Status Members No Information
--- OUTSIDE RECORDS SUMMARY | 2024-10-09 09:00 | XMS_ITS | Encounter Summary ---
Author Organization [facility] Address [address] [place] [address] Phone Care Team Providers Care Vector Control Assistant Name Role Phone Brian Bryson MD Primary Care Provider [phone] Harvey Jaimes MD Unavailable [phone] Lucas Lopez MD Unavailable [phone] Reason for Visit * Reason Comments Medication Refill Encounter Details Date Type Department Care Team (Late st Contact Info) Description 10/22/2022 Refill [facility] [address] [place] [address] Harvey Jaimes MD [address] [address] Medication Refill Social History Tobacco [...] suspected to have Coronavirus/COVID-19? No / Unsure 10/17/2022 10:38 AM CDT documented as of this encounter Miscellaneous Notes * Telephone Encounter - Judy Peraza RN - 10/22/2022 10:01 AM CDT Refill request from pharmacy. Please fill if appropriate. documented in this encounter Plan of Treatment Upcoming Encounters Date Type Department Care Team (Late st Contact Info) Description 10/22/2024 9:00 AM CDT Ancillary Procedure [facility] [address] [phone] 11/05/2024 9:15 AM CDT Office Visit [facility] [address] [phone] Harvey Jaimes MD [facility] [address] documented as of this encounter Visit Diagnoses Diagnosis Anemia of unknown etiology Anemia, unspecified documented in this encounter Additional Health Concerns Assessment Noted Time PHQ-9 Depression Total Score: 0 12/08/19 21 1:48 PM CDT documented as of this encounter Care Teams Vector Control Assistant Relationship Specialty Start Date End Date Brian Bryson MD [address] [address] PCP - General Family Medicine 11/14/20 Harvey Jaimes MD [address] [place] [phone] Consulting Physician Oncology 10/18/21 Lucas Lopez MD [address] [place] [address] Gastroenterology 03/06/22 documented as of this encounter
--- OUTSIDE RECORDS SUMMARY | 2024-10-09 09:00 | XMS_ITS | Clinical Summary ---
Author Organization [facility] Address [address] [place] [address] [place] Baum [address] Phone Care Team Providers Care Iron Piler Name Role Phone Brian Bryson MD Primary Care Provider [phone] Allergies Active Allergy Reactions Criticality Noted Date Comments Ciprofloxacin Dizziness,Other (See Comments),Rash,Unknown Medium 11/13/2017 Cold sweats, dizzy. Adverse reaction Adverse reaction Dizziness/Light Headed Adverse reaction Cold sweats, dizzy. Adverse reaction Cold sweats, dizzy. Medications acetaminophen (TYLENOL ARTHRITIS) 650 mg Extended Release tablet Take 1,300 mg by mouth every 4 hours as needed. Active aspirin (ECOTRIN EC) 81 mg Tablet, Delayed Release (E.C.) Take 81 mg by mouth daily. Active DOCOSAHEXAENOIC ACID ORAL Take 1,000 mg by mouth 2 times daily. 3 Active ergocalciferol (VITAMIN D2) 50,000 unit capsule Take 50,000 Units by mouth. 1 Active fenofibrate nanocrystallized (TRICOR) 145 mg tablet 3 Active ferrous sulfate 325 mg (65 mg iron) Tablet, Delayed Release (E.C.) Take 1 Tablet by mouth daily. 4 Active gabapentin (NEURONTIN) 600 mg tablet Take 1,200 mg by mouth 2 times daily. Active omeprazole (PriLOSEC) 40 mg Capsule, Delayed Release(E.C.) Take 40 mg by mouth daily. Active pantoprazole (PROTONIX) 20 mg Tablet, Delayed Release (E.C.) Take 20 mg by mouth 2 times daily. Active pravastatin (PRAVACHOL) 80 mg tablet Take 80 mg by mouth daily. 09/25/202 2 Active tiZANidine (ZANAFLEX) 2 mg Tablet Take 2 mg by mouth. Active losartan (COZAAR) 50 mg tablet Take 50 mg by mouth daily. Active finasteride (PROSCAR) 5 mg tablet Take 5 mg by mouth daily. Active amLODIPine (NORVASC) 5 mg tablet Take 5 mg by mouth daily. Active Active Problems No known active problems Family History Medical History Relation Name Comments No Known Problems Child Diabetes Father Heart Disease Father Breast Cancer Mother Diabetes Mother Cancer Sister 1 Relation Name Status Comments Brother 1 no contact Alive Brother 2 no contact Alive Child Alive Father Mother Sister 1 Alive Sister 2 no contact Alive Social History Tobacco Use Types Packs/Day Years Used Date Smoking Tobacco: Never Smokeless Tobacco: Never Tobacco Cessation:Counseling Given: Not Answered Alcohol Use Standard Drinks/Week Comments Never 0 (1 standard drink = 0.6 oz pur e alcohol) Sex and Gender Information Value Date Recorded Sex Assigned at Not on file Legal Sex Male 10:36 AM CDT Gender Identity Not on file Sexual Orientation Not on file Last Filed Vital Signs Vital Sign Reading Time Taken Comments Blood Pressure 130/77 08/25/2023 10:40 AM APPRAISER OIL AND WATER Pulse 65 08/25/2023 10:40 AM [employer] Temperature - - Respiratory Rate 15 08/25/2023 10:4 0 AM [employer] Oxygen Saturation 95% 08/25/2023 10: 40 AM [employer] Inhaled Oxygen Concentration - - Weight 102.3 kg (225 lb 9.6 oz) 024 10:40 AM [employer] O[employer] Height 182.9 cm (6') 08/25/2023 10:40 AM [employer] Body Mass Index 30.6 08/25/2023 10:40 AM AP[employer]ER OIL AND WATER Plan of Treatment Health Maintenance Due Date Last Done Comments DTAP/TDAP/TD VACCINES (1 - Tdap) 1983 COLORECTAL SCREENING 2009 Colorectal Cancer Screening 2009 FIT-DNA Q 3 years 2009 FIT/FOBT Q 1 year 2009 Flex Sig/CT Colonography Q 5 years 2009 ZOSTER VACCINE (1 of 2) 2014 INFLUENZA VACCINE (#1) 2024 RSV VACCINE (60+ or ) (1 - 1-dose 75+ series) 2039 HEPATITIS B VACCINES Aged Out No long er eligible based on patient's age to complete this topic Insurance Care Teams Iron Piler Relationship Specialty Start Date End Date Brian Bryson MD [address] [place] [phone] PCP - General Family Practice 08/25/23
--- OUTSIDE RECORDS SUMMARY | 2024-10-09 09:00 | XMS_ITS | Encounter Summary ---
Author Organization [facility] Address [address] [place] [address] Phone Care Team Providers Care Employment Evaluator/Case Manager Name Role Phone Brian Bryson MD Primary Care Provider [phone] Harvey Jaimes MD Unavailable [phone] Lucas Lopez MD Unavailable [phone] Reason for Visit * Reason Comments Medication Refill Encounter Details Date Type Department Care Team (Late st Contact Info) Description 04/03/2022 Refill [facility] [address] [place] [address] Harvey Jaimes MD [address] [address] Medication Refill Social History Tobacco [...] suspected to have Coronavirus/COVID-19? No / Unsure 03/19/2022 11:16 AM CDT documented as of this encounter Miscellaneous Notes * Telephone Encounter - Patt Almazan - 04/03/2022 9:10 AM CDT Please refill if appropriate. documented in this encounter Plan of Treatment Upcoming Encounters Date Type Department Care Team (Late st Contact Info) Description 10/22/2024 9:00 AM CDT Ancillary Procedure [facility] [address] [phone] 11/05/2024 9:15 AM CDT [facility] [address] [phone] Harvey Jaimes MD [address] [address] documented as of this encounter Visit Diagnoses Diagnosis Anemia of unknown etiology Anemia, unspecified documented in this encounter Additional Health Concerns Assessment Noted Time PHQ-9 Depression Total Score: 0 12/08/19 1:48 PM CDT documented as of this encounter Care Teams Employment Evaluator/Case Manager Relationship Specialty Start Date End Date Brian Bryson MD [address] [address] PCP - General Family Medicine 11/14/20 Harvey Jaimes MD [address] [place] [phone] Consulting Physician Oncology 10/18/21 Lucas Lopez MD [address] [place] [address] Gastroenterology 03/06/22 documented as of this encounter
--- OUTSIDE RECORDS SUMMARY | 2024-10-09 09:00 | XMS_ITS | Encounter Summary ---
Author Organization [facility] Address [address] [place] [address] Phone Care Team Providers Care Steamfitter Apprentice Name Role Phone Brian Bryson MD Primary Care Provider [phone] Harvey Jaimes MD Unavailable [phone] Lucas Lopez MD Unavailable [phone] Reason for Visit * Reason Comments Medication Refill Encounter Details Date Type Department Care Team (Late st Contact Info) Description 10/14/2021 Refill [facility] [address] [place] [address] Harvey Jaimes MD [address] [address] Medication Refill Social History Tobacco [...] suspected to have Coronavirus/COVID-19? No / Unsure 10/16/2021 10:18 AM CDT documented as of this encounter Miscellaneous Notes * Telephone Encounter - Jake Cho RN - 10/15/2021 8:19 AM CDT Please refill if appropriate. documented in this encounter Plan of Treatment Upcoming Encounters Date Type Department Care Team (Late st Contact Info) Description 10/22/2024 9:00 AM CDT Ancillary Procedure [facility] [address] [phone] 11/05/2024 9:15 AM CDT Office Visit [facility] [address] [phone] Harvey Jaimes MD [facility] M [address] [phone] documented as of this encounter Visit Diagnoses Diagnosis Anemia of unknown etiology- Primary Anemia, unspecified documented in this encounter Additional Health Concerns Assessment Noted Time PHQ-9 Depression Total Score: 0 12/08/19 21 1:48 PM CDT documented as of this encounter Care Teams Steamfitter Apprentice Relationship Specialty Start Date End Date Brian Bryson MD [address] [place] [address] PCP - General Family Medicine 11/14/20 Harvey Jaimes MD [address] [place] [phone] Consulting Physician Oncology 10/18/21 Lucas Lopez MD [address] [place] [address] Gastroenterology 03/06/22 documented as of this encounter
--- OUTSIDE RECORDS SUMMARY | 2024-10-09 09:00 | XMS_ITS | Referral Summary ---
Author Organization [address] Address [address] [place] [address] Care Team Providers Care Inspector Conveyor Line Name Role Phone Brian Bryson MD Primary Care Provider [phone] Hao Gutierrez MD Unavailable [phone] Encounters Date Type Department Care Team Description 10/06/2024 11:57 AM CDT - 10/06/2024 11:59 PM CDT Hospital Encounter [facility] MOB 1 DIAG IMG [address] [place] [address] Chronic pain of left knee Discharge Disposition: Discharge to home or self care 10/06/2024 11:45 AM CDT Office Visit [facility] [address] [place] [address] [address] [place] [phone] Hao Gutierrez MD Chronic right shoulder pain (Primary Dx); Chronic pain of left knee 10/05/2024 10:00 AM CDT Therapy [facility] [address] [place] [address] Minna Andrade PTA S/P rotator cuff repair (Primary Dx) 09/23/2024 9:15 AM CDT Therapy [facility] [address] [place] [address] Belem Trimble PTA S/P rotator cuff repair (Primary Dx) 09/20/2024 9:15 AM CDT Therapy [facility] OP Physical Therapy [address] [place] [address] Juanita James, BOOKMOBILE CLERK S/P rotator cuff repair (Primary Dx) 09/16/2024 2:15 PM PRACTICE BUSINESS ASST Therapy [facility] [address] [place] [address] Belem Trimble, BOOKMOBILE CLERK S/P rotator cuff repair (Primary Dx) 09/15/2024 10:00 AM PRACTICE BUSINESS ASST Therapy [facility] [address] [place] [address] Belem Trimble, BOOKMOBILE CLERK S/P rotator cuff repair (Primary Dx) 08/20/2024 Plan of Care Documentation [facility] [address] [place] [address] 08/20/2024 Telephone [facility] [address] [place] [phone] Hao Gutierrez MD 08/20/2024 7:45 AM PRACTICE BUSINESS ASST Therapy [facility] [address] [place] [address] Esteban Marlow, PT S/P rotator cuff repair (Primary Dx) 08/13/2024 1:30 PM PRACTICE BUSINESS ASST Therapy [facility] [address] [place] [address] Belem Trimble, BOOKMOBILE CLERK S/P rotator cuff repair (Primary Dx) 08/10/2024 1:30 PM PRACTICE BUSINESS ASST Therapy [facility] [address] [place] [address] Belem Trimble, BOOKMOBILE CLERK S/P rotator cuff repair (Primary Dx) 08/06/2024 12:45 PM PRACTICE BUSINESS ASST Therapy [facility] [address] [place] [address] Jn Bernal, BOOKMOBILE CLERK S/P rotator cuff repair (Primary Dx); Complete tear of right rotator cuff, unspecified whether traumatic 08/04/2024 2:15 PM PRACTICE BUSINESS ASST Therapy [facility] [address] [place] [address] Esteban Marlow, PT S/P rotator cuff repair (Primary Dx) 07/28/2024 11:00 AM PRACTICE BUSINESS ASST Office Visit [facility] [address] [facility] [address] [place] [phone] William Devine MD Essential hypertension (Primary Dx); Mixed hyperlipidemia; Stenosis of carotid artery, unspecified laterality; Obstructive sleep apnea; Obesity (BMI 30.0-34.9) 07/22/2024 Telephone [facility] Medicine [address] [facility] [address] [place] [phone] Hao Gutierrez MD Wants Monovisc, left knee 07/21/2024 12:45 PM PRACTICE BUSINESS ASST Therapy [facility] [address] [place] [address] Esteban Marlow, PT S/P rotator cuff repair (Primary Dx) 07/15/2024 12:45 PM PRACTICE BUSINESS ASST Therapy [facility] [address] [place] [address] Belem Trimble, BOOKMOBILE CLERK S/P rotator cuff repair (Primary Dx) 07/12/2024 12:45 PM PRACTICE BUSINESS ASST Therapy [facility] [address] [place] [address] Esteban Marlow, PT S/P rotator cuff repair (Primary Dx) from Last 3 Months Allergies Active Allergy Reactions Criticality Noted Date [...] mouth once a week Friday Active multivit gypjmzaq-dywm-AA-ca lcium (THERA-M) 9 mg iron-400 mcg tabletIndications:V [...] by mouth daily 02/15/20 23 Active omega 4-tlg-ked-fish oil (Fish OiL) 1,000 mg (120 mg-180 [...] needed for severe pain. 14 tablet 04/13/20 Active Additional Information Patient not taking.Reported on 10/06/2024 ketorolac (TORADOL) 10 mg tablet Take 1 tablet (10 mg total) by mouth every 6 (six) hours as needed for pain 20 tablet 04/13/20 Active Additional Information Patient not taking.Reported on [...] (10/09/2022): Added automatically from request for surgery [id number] Secondary localized osteoarthrosis of ankle and foot [...] the specific diagnosis of rheumatoid arthritis by [employer] classification criteria nor seems [...] Rotator cuff syndrome of left shoulder 9 Diverticulitis 09/29/2018 Electrocardiogram abnormal 09/29/2018 Peptic [...] Hyponatremia Ventral hernia without obstruction or gangrene Social History Tobacco Use Types Packs/Day Years [...] on file Legal Sex Male 9:18 PM PRACTICE BUSINESS ASST Gender Identity Male 11/24/2023 12:05 PM CDT Sexual Orientation Not on file Last Filed Vital Signs Vital Sign Reading Time Taken Comments Blood Pressure 128/66 07/28/2024 11:14 AM PRACTICE BUSINESS ASST Pulse 63 07/28/2024 11:14 AM PRACTICE BUSINESS ASST Temperature 36.7 C (98 F) 04/16/2024 10:42 AM CDT Respiratory Rate 18 04/13/2024 4:20 PM CDT Oxygen Saturation 97% 07/28/2024 11:14 AM PRACTICE BUSINESS ASST Inhaled Oxygen Concentration - - Weight 104.3 kg (230 lb) 07/28/2024 11:14 AM PRACTICE BUSINESS ASST Height 182.9 cm (6') 07/28/2024 11:14 AM PRACTICE BUSINESS ASST Body Mass Index 31.19 07/28/2024 11:14 AM PRACTICE BUSINESS ASST Plan of Treatment Not on file Medical Devices Implanted Type Area Mental Retardation Aide Device Identifier Shelf Expiration Date Model / Serial / Lot [employer] Inc/C R Bard [id number] Monofilament Soft Lightweight Low Profile Square - Sn/A - [id number] Implanted:Qty: 1 on 02/11/2023 by Jonathan Carlos MD at [facility] Mesh N/A: Abdomen [employer] Inc/C R Bard [id number] 11/08/2026 [id number] / N/A / [id number] [employer] Tenodesis 7mm 23mm Acl Screw Interference Biocomposite Sterile Ar-[id number] - [id number] Implanted:Qty: 1 on 03/16/2024 by Hao Gutierrez MD at [facility] Right: Shoulder [employer] [id number] 06/12/2027 AR-1570BC / / [id number] [employer] Corkscrew Fiberwire 4.5mm 14mm 2 2 Full Thread [place] Suture [id number] - [id number] Implanted:Qty: 1 on 03/16/2024 by Hao Gutierrez MD at [facility] Right: Shoulder [employer] [id number] 08/13/2027 AR-1927BC F-45 / / [id number] [employer] Corkscrew Fiberwire 4.5mm 14mm 2 2 Full Thread [place] Suture [id number] - [id number] Implanted:Qty: 1 on 03/16/2024 by Hao Gutierrez MD at [facility] Right: Shoulder [employer] [id number] 08/13/2027 AR-1927BC F-45 / / [id number] [employer] Swivelock C 4.75mm 19.1mm Closed Eyelet Vent [place] Suture Ar-2324bcc - [id number] Implanted:Qty: 1 on 03/16/2024 by Hao Gutierrez MD at [facility] Right: Shoulder [employer] [id number] 08/13/2027 AR-2324BC C / / [id number] [employer] Swivelock C 4.75mm 19.1mm Closed Eyelet Vent [place] Suture Ar-2324bcc - [id number] Implanted:Qty: 1 on 03/16/2024 by Hao Gutierrez MD at [facility] Right: Shoulder [employer] [id number] 10/12/2027 AR-2324BC C / / [id number] Procedures Procedure Name Priority Date/Time Associated Diagnosis Comments XR KNEE LEFT 3 VIEWS Schedule Routine, Read Routine (OP Routine) 10/06/2024 12:07 PM CDT Chronic pain of left knee HEPATITIS PANEL, ACUTE Routine 07/22/2023 2:11 PM PRACTICE BUSINESS ASST PSA DIAGNOSTIC Routine 03/02/2021 3:34 PM CDT [...] by Hao Gutierrez MH: DAVION Report ID: [id number] Reading Location: [place] [address] Procedure Note Hao Gutierrez MD - 10/06/2024 [...] by Hao Gutierrez MH: DAVION Report ID: [id number] Reading Location: [place] [address] Hao Gutierrez MD IMG XR PROCEDURES Final Result * (ABNORMAL) Hepatitis panel, acute Blood (07/22/2023 2:11 PM PRACTICE BUSINESS ASST) Hep A IgM Nonreactive Nonreactive [facility] Comment: Interpretive Data: If Hep A IgM Ab is reported as Equivocal, a new sample should be drawn in two weeks for testing. Current interpretive data was last revised on 19. Hep B core IgM Nonreactive Nonreactive [facility] Comment: Interpretive Data If HepB Core IgM Ab is reported as Equivocal, a new sample should be drawn in two weeks for testing. Current interpretive data was last revised on 19. Hep C Ab Reactive(A) Nonreactive [facility] Comment: Reactive for HCV antibodies. This may [...] last revised on 2019. HepBsAg Nonreactive Nonreactive [facility] Blood 07/22/2023 2:11 PM PRACTICE BUSINESS ASST 07/22/2023 6:02 PM PRACTICE BUSINESS ASST Lucas Lopez MD LAB MICROBIOLOGY - GENERAL KRYSTIN GAXIOLA Final Result [facility] [address] [facility] Department [place] [address] * PSA diagnostic (03/02/2021 3:34 PM CDT) PSA-Total 0.10 <=3.90 ng/mL [facility] Comment: Interpretive Data AGE SEX REFERENCE INTERVAL 0 minutes-150 years Female None 0 minutes-49 years Male None 50-59 years Male 0-3.90 60-69 years Male 0-5.40 70-79 years Male 0-6.20 80-150 years Male 0-6.20 Current interpretive data last revised 2018. Blood 03/02/2021 3:34 PM CDT 03/02/2021 3:58 PM CDT Pam Hercules NOC TECHNICIAN LAB BLOOD ORDERABLES Final Result [facility] [address] [facility] Department [place] [address] from Last 3 Months or Most Recently Relevant to Health Maintenance Insurance [facility] Advance Directives For more information, please contact: [phone] * Full Code (Latest Code Status on File) Date Activated Date Inactivated Comments 02/11/2023 5:07 PM 02/13/2023 7:05 PM * Full Code Date Activated Date Inactivated Comments 04/30/2021 11:13 PM 05/04/2021 12:45 AM Care Teams Inspector Conveyor Line Relationship Specialty Start Date End Date Brian Bryson MD PCP - General 08/30/18 Hao Gutierrez MD [address] [facility] [address] [place] [address] Consulting Physician Orthopedic Surgery 03/16/24
--- OUTSIDE RECORDS SUMMARY | 2024-10-09 09:00 | XMS_ITS | Encounter Summary ---
Author Organization [facility] Address [address] [place] [address] Phone Care Team Providers Care Licensed Professional Counselor Name Role Phone Brian Bryson MD Primary Care Provider [phone] Harvey Jaimes MD Unavailable [phone] Lucas Lopez MD Unavailable [phone] Reason for Visit * Reason Comments Medication Refill Encounter Details Date Type Department Care Team (Late st Contact Info) Description 04/21/2023 Refill [facility] [place] [address] [place] [address] Harvey Jaimes MD [address] [address] Medication Refill Social History Tobacco [...] suspected to have Coronavirus/COVID-19? No / Unsure 04/18/2023 10:28 AM CDT documented as of this encounter Miscellaneous Notes * Telephone Encounter - Patt Almazan - 04/21/2023 7:43 AM CDT Please refill if appropriate. documented in this encounter Plan of Treatment Upcoming Encounters Date Type Department Care Team (Late st Contact Info) Description 10/22/2024 9:00 AM CDT Ancillary Procedure [facility] [address] [phone] 11/05/2024 9:15 AM CDT Office Visit [facility] [address] [phone] Harvey Jaimes MD [address] [address] documented as of this encounter Visit Diagnoses Diagnosis Anemia of unknown etiology Anemia, unspecified documented in this encounter Additional Health Concerns Assessment Noted Time PHQ-9 Depression Total Score: 0 12/08/19 1:48 PM CDT documented as of this encounter Care Teams Licensed Professional Counselor Relationship Specialty Start Date End Date Brian Bryson MD [address] [address] PCP - General Family Medicine 11/14/20 Harvey Jaimes MD [address] [place] [phone] Consulting Physician Oncology 10/18/21 Lucas Lopez MD [address] [place] [address] Gastroenterology 03/06/22 documented as of this encounter
--- OUTSIDE RECORDS SUMMARY | 2024-10-09 09:00 | XMS_ITS | CONTINUITY OF CARE DOCUMENT ---
Author Name oskar schmitt Address Unknown Organization [facility] Address [address] [place] [address] [address] [place] [address] Phone [phone] Care Team Providers Care Pharmacy Sales Assistant Name Role Phone oskar schmitt Unavailable Unavailable INSURANCE PROVIDERS Payer name Policy type / Coverage type [place] red libertarian ID [id number] PAY [id number]
--- OUTSIDE RECORDS SUMMARY | 2024-10-09 09:00 | XMS_ITS | Encounter Summary ---
Author Organization [facility] Address [address] [place] [address] Care Team Providers Care Urgent Care Name Role Phone Brian Bryson MD Primary Care Provider [phone] Hao Gutierrez MD Unavailable [phone] Encounter Details Date Type Department Care Team (Late st Contact Info) Description 03/03/[address] [facility] OP Physical Therapy [address] [place] [address] Ashely Mayo, PT Social History Tobacco Use Types Packs/Day Years Used Date Smoking Tobacco: Former Cigarettes AUDIT-C Answer Date Recorded Frequency of Alcohol Consumption Not on file 01/21/2023 Q2: How many drinks containi ng alcohol do you have on a typical day when you are drinking? 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
--- OUTSIDE RECORDS SUMMARY | 2024-10-09 09:00 | XMS_ITS | Encounter Summary ---
Author Organization [facility] Address [address] [place] [address] Phone Care Team Providers Care Grazing Examiner Name Role Phone Brian Bryosn MD Primary Care Provider [phone] Harvey Jaimes MD Unavailable [phone] Lucas Lopez MD Unavailable [phone] Reason for Visit * Reason Comments Medication Refill Encounter Details Date Type Department Care Team (Late Contact Info) Description 06/19/2023 Refill [facility] [address] [phone] Harvey Jaimes MD [address] [facility] [address] [address] Medication Refill Social History Tobacco [...] * Telephone Encounter - Patt Almazan - 06/19/2023 9:23 AM CST Please refill if appropriate. 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 documented in this encounter Plan of Treatment Upcoming Encounters Date Type Department Care Team (Late Contact Info) Description 10/22/2024 9:00 AM CDT Ancillary Procedure [facility] [address] [phone] 11/05/2024 9:15 AM CDT Office Visit [facility] [address] [phone] Harvey Jaimes MD [address] [facility] [address] [place] [address] documented as of this encounter Visit Diagnoses Diagnosis Anemia of unknown etiology Anemia, unspecified documented in this encounter Additional Health Concerns Assessment Noted Time PHQ-9 Depression Total Score: 0 12/08/19 1:48 PM CDT documented as of this encounter Care Teams Grazing Examiner Relationship Specialty Start Date End Date Brian Bryson MD [address] [place] [address] PCP - General Family Medicine 11/14/20 Harvey Jaimes MD [address] [place] [phone] Consulting Physician Oncology 10/18/21 Lucas Lopez MD [address] [place] [address] Gastroenterology 03/06/22 documented as of this encounter
--- OUTSIDE RECORDS SUMMARY | 2024-10-09 09:00 | XMS_ITS | Encounter Summary ---
Author Organization [facility] Address [address] [place] [address] Phone Care Team Providers Care Professor Of Theater Name Role Phone Brian Bryson MD Primary Care Provider [phone] Harvey Jaimes MD Unavailable [phone] Lucas Lopez MD Unavailable Reason for Visit * Reason Comments Medication Refill Encounter Details Date Type Department Care Team (Late Contact Info) Description 12/31/2023 Refill [facility] [address] [phone] Harvey Jaimes MD [address] [facility] [address] [address] Medication Refill Social History Tobacco [...] * Telephone Encounter - Patt Almazan - 12/31/2023 3:56 PM CDT Please refill if appropriate. documented in this encounter Plan of Treatment Upcoming Encounters Date Type Department Care Team (Late st Contact Info) Description 10/22/2024 9:00 AM CDT Ancillary Procedure [facility] [address] [phone] 11/05/2024 9:15 AM CDT Office Visit [facility] [address] [phone] Harvey Jaimes MD [facility] M [facility] [place] [address] documented as of this encounter Visit Diagnoses Diagnosis Anemia of unknown etiology Anemia, unspecified documented in this encounter Additional Health Concerns Assessment Noted Time PHQ-9 Depression Total Score: 0 12/08/19 1:48 PM CDT documented as of this encounter Care Teams Professor Of Theater Relationship Specialty Start Date End Date Brian Bryson MD [address] [place] [address] PCP - General Family Medicine 11/14/20 Harvey Jaimes MD [address] [place] [phone] Consulting Physician Oncology 10/18/21 Lucas Lopez MD [facility] [place] [address] Gastroenterology 03/06/22 documented as of this encounter
--- OUTSIDE RECORDS SUMMARY | 2024-10-09 09:00 | XMS_ITS | Data Portability ---
Author Organization [place] [facility] [place] [employer], Main Office Address [address] [place] [address] Care Team Providers Care Zinc Plater Name Role Phone WILI RUBY Primary Care Provider RUBY MAZARIEGOS Referring Provider [phone] Assessment No assessment recorded. Plan of Treatment Reminders Order Date Submit Date Provider Last Modified By Organization Details Last Modified Time Details Appointments None recorded. Lab hepatitis C virus RNA, quant, PCR, serum or plasma 2024 025 [facility] ([facility] [address] [place], [address], 08:09:03 Referral None recorded. Procedures None recorded. Surgeries None recorded. Imaging None recorded. Medication Orders None recorded. Patient TargetsNo targets recorded. Patient Instructions Encounter Date Encounter Id Patient Instructions Last Modified By Organization Details Last Modified Time 09/01/2024 [id number] PT WITH HX/O HEP C INFECTION . S/P TREATMENT WITH [facility] AND [facility]. WILL CHECK HCV-RNA TO R/O ACTIVE DZ THE ANTIBODY WILL ALWAYS BE POSITIVE . Not available 09/01/2024 15:53:07 Reason for Referral None Reported. Results Created Date Observation Date Name Description Value Unit Range Abnormal Flag Note LastModifiedBy Organization Detail LastModifiedTime 01/09/20 21 XR, foot No observ ation record ed. [id number] [facility] [place] [address], [place], [address], 09/11/2022 21:32:11 02/08/20 22 02/07/2022 XR, foot No observ ation record ed. [id number] [facility] [place] [address], [place], [address], 09/11/2022 21:32:11 Result Notes None recorded. 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 5 15:05:33 Problem Notes None recorded. Procedures Surgical History Date Name Laterality Status Provider Name and Address Organization Details Recorded Time colostomy completed Not Available [facility] 0 09/11/2022 21:29:06 Appendectomy completed Not Available [facility] 09/11/2022 21:29:06 Knee [facility] 09/11/2022 21:29:06 procedure on spleen completed Not Available [facility] 09/11/2022 21:29:06 Colon Surgery completed Not [facility] 09/11/2022 21:29:06 Imaging Results Imaging Date Name Status LastModified by [facility] Details LastModified Time 01/08/2021 XR, foot completed [id number] [facility] [place] [address], [place], [address], 09/11/2022 21:32:11 02/07/2022 XR, foot completed [id number] [facility] [address], [place], [address], 09/11/2022 21:32:11 Procedure Notes None recorded. Medical Equipment None Reported. Allergies Allergen ID Allergen Name Allergen Category Reaction Reaction Severity Criticality Documentation Date Start Date Code Code System Note Provider Name and Address Organization Details Recorded Time 71871 Cipro medicatio n Not available Not available Not available 09/11/202204073 3 RxNorm Not Available [facility] 21:32:02 Medications Name Sig Start Date Stop Date Status Note LastModified by Organization Details LastModified Time losartan 50 mg tablet TAKE 1 TABLET BY MOUTH EVERY DAY active Not Available Not Available No t Available atorvastati n 40 mg tablet active Not Available Not Available Not Available nystatin 100,000 unit/mL oral suspension TAKE 4 ML (0.4 MILLION UNITS) BY MOUTH 4 TIMES PER DAY active Not Available Not Available No t Available gabapentin 600 mg tablet TAKE 2 TABLETS BY MOUTH TWICE A DAY active Not Available Not Available No t Available doxycycline hyclate 100 mg capsule active Not Available Not Available N ot Available ropinirole 1 mg tablet active Not Available Not Available Not Available tizanidine 2 mg tablet TAKE 2 TABLETS BY MOUTH TWICE A DAY active Not Available Not Available No t Available azithromyci n 250 mg tablet TAKE 2 TABLETS BY MOUTH TODAY, THEN TAKE 1 TABLET DAILY FOR 4 DAYS active Not Available Not Available No t Available aspirin 325 mg tablet TAKE 1 TABLET BY MOUTH TWICE A DAY active Not Available Not Available No t Available metoprolol succinate ER 50 mg tablet,exte nded release 24 hr 11/01 completed Not Available Not Available Not Available hydrocodone 5 mg-acetamin ophen 325 mg tablet TAKE 1 TABLET BY MOUTH EVERY 6 HOURS NEEDED FOR PAIN active Not Available Not Available No t Available meloxicam 15 mg tablet TAKE 1 TABLET BY MOUTH EVERY DAY active Not Available Not Available No t Available ondansetron HCl 4 mg tablet TAKE 1 TABLET BY MOUTH EVERY 8 HOURS NEEDED FOR NAUSEA AND VOMITING active Not Available Not Available No t Available acetaminoph en 300 mg-codeine 30 mg tablet 11/01 completed Not Available Not Available Not Available amlodipine 5 mg tablet TAKE 1 TABLET BY MOUTH EVERY DAY active Not Available Not Available No t Available peg-electro lyte solution 420 gram oral solution USE DIRECTED BY OFFICE PER MAILED INSTRUCTI ONS active Not Available Not Available No t Available omeprazole 40 mg capsule,del ayed release TAKE 1 CAPSULE BY MOUTH TWICE A DAY FOR BEFORE MEALS active Not Available Not Available No t Available aspirin 81 mg tablet,janina yed release TAKE 1 TABLET BY MOUTH EVERY DAY active Not Available Not Available No t Available tramadol 50 mg tablet TAKE 1 TABLET BY MOUTH EVERY 6 HOURS NEEDED FOR MODERATE PAIN active Not Available Not Available No t Available acetaminoph en 500 mg tablet TAKE 1 TABLET BY MOUTH EVERY 6 HOURS NEEDED FOR PAIN. active Not Available Not Available No t Available ketorolac 10 mg tablet TAKE 1 TABLET BY MOUTH EVERY 6 HOURS NEEDED FOR PAIN active Not Available Not Available No t Available pantoprazol e 20 mg tablet,janina yed release active Not Available Not Available Not Available ketorolac 0.5 % eye drops INSTILL 1 DROP 3 TIMES DAILY STARTING 2 DAYS BEFORE SURGERY, CONTINUIN G FOR 2 WEEKS AFTER SURGERY active Not Available Not Available No t Available amoxicillin 875 mg tablet 06/02 completed Not Available Not Available Not Available pravastatin 80 mg tablet TAKE 1 TABLET BY MOUTH EVERYDAY AT BEDTIME active Not Available Not Available No t Available prednisolon e acetate 1 % eye drops,suspe nsion INSTILL 1 DROP 3 TIMES DAILY STARTING AFTER SURGERY, CONTINUE FOR 3 WEEKS active Not Available Not Available No t Available tamsulosin 0.4 mg capsule 11/01 completed Not Available Not Available Not Available dicyclomine 20 mg tablet TAKE ONE TABLET BY MOUTH THREE TIMES A DAY NEEDED FOR PAIN 11/01 completed Not Available Not Available Not Available ciprofloxac in 0.3 % eye drops INSTILL 1 DROP 3 TIMES PER DAY STARTING 2 DAYS PRIOR TO SURGERY, CONTINUE FOR 1 WEEK AFTER SURGERY active Not Available Not Available No t Available hydrocodone 7.5 mg-acetamin ophen 325 mg tablet TAKE 1 TABLET EVERY 6 HOURS NEEDED FOR SEVERE PAIN active Not Available Not Available No t Available pantoprazol e 40 mg tablet,janina yed release TAKE 1 TABLET BY MOUTH TWICE A DAY active Not Available Not Available No t Available tobramycin 0.3 % eye drops PUT 1 DROP IN THE AFFECTED EYE(S) 4 TIMES DAILY.STA RT 2 DAYS PRIOR TO SURGERY, CONTINUE FOR 1 WEEK active Not Available Not Available No t Available ropinirole 0.5 mg tablet active Not Available Not Available Not Available nystatin 100,000 unit/gram topical cream 11/01 completed Not Available Not Available Not Available lisinopril 10 mg tablet TAKE 1 TABLET BY MOUTH EVERY DAY 11/01 completed Not Available Not Available Not Available lidocaine 5 % topical patch PLACE 1 PATCH ON THE SKIN DAILY REMOVE & DISCARD PATCH WITHIN 12 HOURS OR DIRECTED FOR 7 DAYS active Not Available Not Available No t Available promethazin e 25 mg tablet TAKE 1/2 TABLET BY MOUTH EVERY 6 HOURS NEEDED FOR NAUSEA active Not Available Not Available No t Available losartan 25 mg tablet TAKE 1 TABLET BY MOUTH EVERY DAY 11/01 completed Not Available Not Available Not Available orphenadrin e citrate ER 100 mg tablet,exte nded release TAKE 1 TABLET BY MOUTH 2 TIMES A DAY FOR 3 DAYS. active Not Available Not Available No t Available gabapentin 300 mg capsule TAKE 1 CAPSULE BY MOUTH EVERY DAY 11/01 completed Not Available Not Available Not Available omeprazole 20 mg capsule,del ayed release TAKE 1 CAPSULE BY MOUTH TWICE A DAY 11/01 completed Not Available Not Available Not Available pravastatin 20 mg tablet TAKE 1 TABLET BY MOUTH EVERY DAY active Not Available Not Available No t Available lisinopril 5 mg tablet 11/01 completed Not Available Not Available Not Available ergocalcife rol (vitamin D2) 1,250 mcg (50,000 unit) capsule TAKE 1 CAPSULE BY MOUTH ONE TIME PER WEEK active Not Available Not Available No t Available ferrous sulfate 325 mg (65 mg iron) tablet,jannia yed release active Not Available Not Available Not Available ondansetron 4 mg disintegrat ing tablet 11/01 completed Not Available Not Available Not Available dicyclomine 10 mg capsule TAKE 1 CAPSULE BY MOUTH UP TO FOUR TIMES A DAY NEEDED FOR ABDOMINAL PAIN 11/01 completed Not Available Not Available Not Available finasteride 5 mg tablet TAKE 1 TABLET BY MOUTH EVERY DAY active Not Available Not Available No t Available naproxen 500 mg tablet 11/01 completed Not Available Not Available Not Available amoxicillin 875 mg-potassiu m clavulanate 125 mg tablet TAKE 1 TABLET BY MOUTH EVERY 12 HOURS FOR 7 DAYS active Not Available Not Available No t Available duloxetine 30 mg capsule,del ayed release TAKE 1 CAPSULE BY MOUTH EVERY DAY active Not Available Not Available No t Available solifenacin 10 mg tablet active Not Available Not Available Not Available fenofibrate nanocrystal lized 145 mg tablet TAKE 1 TABLET BY MOUTH EVERY DAY active Not Available Not Available No t Available FeroSul 325 mg (65 mg iron) tablet TAKE 1 TABLET BY MOUTH EVERY DAY active Not Available Not Available No t Available Mavyret 100 mg-40 mg tablet active Not Available Not Available Not Available Voltaren Arthritis Pain 1 % topical gel APPLY 2 GRAMS TO THE AFFECTED AREA(S) BY TOPICAL ROUTE 4 TIMES PER DAY active Not Available Not Available No t Available Vitals Date Recorded Body mass index (BMI) Body height Oxygen saturation Oxygen saturation in Arterial blood by Pulse oximetry Heart rate Body weight Systolic blood pressure Diastolic blood pressure Provider Name and Address Organization Details Last Updated DateTime 1 33.9 kg/m2 182.88 cm 96 % 96 % 95 /min 446297. 09 g 138 mm[Hg] 84 mm[Hg] Not Available [facility] 3 21:29:48 Date Recorded Body mass index (BMI) Body height Heart rate Body weight Systolic blood pressure Diastolic blood pressure Provider Name and Address Organization Details Last Updated DateTime 1 33.9 kg/m2 182.88 cm 80 /min 994953. 09 g 122 mm[Hg] 80 mm[Hg] Not Available [facility] 3 21:29:48 Date Recorded Body mass index (BMI) Body height Body weight Provider Name and Address Organization Details Last Updated DateTime 02/07/2022 33.9 kg/m2 182.88 cm 702465.09 g Not Available [facility] 09/11/2022 21:29:49 Date Recorded Body mass index (BMI) Body height Body weight Provider Name and Address Organization Details Last Updated DateTime 03/21/2022 33.9 kg/m2 182.88 cm 512016.09 g Not Available [facility] 09/11/2022 21:29:49 Date Recorded Body height Body mass index (BMI) Body weight Heart rate Oxygen saturation Oxygen saturation in Arterial blood by Pulse oximetry Systolic blood pressure Diastolic blood pressure Provider Name and Address Organization Details Last Updated DateTime 5 182.88 cm 31.9 kg/m2 352179. 21 g 73 /min 95 % 95 % 146 mm[Hg] 84 mm[Hg] [place] [facility] 14:25:00 Social History Question Answer Notes LastModified by Organizat ion Details LastModified Time Tobacco Smoking Status Never Smoker Not Available [facility] 09/11/2022 21:29:00 What Was The Date Of Your Most Recent Tobacco Screening? 11/01/2020 [id number] Information not available 09/11/2022 Sex: Unknown Functional Status None recorded. Mental Status None recorded. Family History Relationship Description Onset Age of this Age Resolved Age Notes LastModified by Organization Details LastModified Time Father Family history of stroke [id number] Not available 09/11/2022 21:29:07 Father Hypertensive disorder [id number] Not available 09/11/2022 21:29:07 Mother Family history of malignant neoplasm [id number] Not available 09/11/2022 21:29:07 Mother Diabetes mellitus [id number] Not available 09/11/2022 21:29:07 Medical History Condition Response ARTHRITIS Y HEADACHES/MIGRAINES Y ANEMIA/BLOOD DISORDER Y DIZZINESS Y HEPATITIS / LIVER DISEASE Y URINARY/BLADDER/KIDNEY PROBLEMS Y GOUT Y BOWEL PROBLEMS Y BACK / NECK PROBLEMS Y HEARTBURN / REFLUX Y HYPERTENSION Y HIGH CHOLESTEROL / HYPERLIPIDEMIA Y Past Encounters Encounter ID Performer Location Encounter Start Date Encounter Closed Date Diagnosis/Indication Diagnosis SNOMED-CT Code Diagnosis ICD10 Code Diagnosis Note [id number] [facility] [place] [address] [place] [address] 11/01/2020 00:00:00 11/01/2020 16:27:00 [id number] [facility] [place] [address] [place] [address] 01/08/2021 00:00:00 01/10/2021 08:24:54 [id number] [facility] [place] [address] [place] [address] 06/28/2021 00:00:00 06/28/2021 13:37:43 [id number] [facility] [place] [address] [place] [address] 02/07/2022 00:00:00 02/07/2022 13:24:39 [id number] [facility] Pod[facility] [place] [address] [place] [address] 03/21/2022 00:00:00 03/21/2022 13:09:57 [id number] Krysta Christine MD [facility] General Surgery [address] [place] [address] 09/01/2024 14:16:27 09/01/2024 15:07:14 Chronic hepatitis C 194787914 B18.2 Health Concerns Section Related Observation LastModified by Organization Detai ls LastModified Time None Recorded Concern Status LastModified by Organization Details LastModified Time None Recorded Advance Directives Directive None Recorded Payers Encounter Date Sequence Insurance Name Policy Number Policy Burrows Covered Member ID Burrows Member ID Guarantor Name 09/01/2024 1 [facility] ON OR AFTER 01/11/21 (MEDICAID REPLACEMENT - HMO) Anders Ambrosio [id number] Anders Ambrosio Notes Date Note Type Note Provider Name and Address Organization Details Recorded Time 09/01/2024 text/html ANDERS WAS SEEN I N THE OFFICE TODAY FOR EVALUATION . PT REPORTS HX/O CHRONIC HEP C. HE IS S/P [facility] AND [facility] TREATMENT . PT REPORTS STOOL CHANGES . HE THINKS HEP C HAS RELAPSED . PT HAS GT1A, NS5a. Krysta Christine MD [address], [place], [address], [facility] 09/01/2024 15:53:24
--- OUTSIDE RECORDS SUMMARY | 2024-10-09 09:00 | XMS_ITS | Clinical Summary ---
Author Organization [facility] Address [address], [facility] [address] [place] [address] Phone Care Team Providers Care Satellite Installation Technician Name Role Phone Brian Bryson MD Primary Care Provider [phone] Harvey Jaimes MD Unavailable [phone] Lucas Lopez MD Unavailable [phone] Allergies Active Allergy Reactions Criticality Noted Date Comments Amoxicillin-Pot Clavulanate Other (see Comments) Low 10/06/2018 NEAR SYNCOPE Cilazapril Other (see Comments) 04/17/2017 Diaphoresis Ciprofloxacin Other (see Comments),Unknown 11/13/2017 Cold sweats, dizzy. Adverse reaction Medications acetaminophen (TYLENOL) 325 MG Tablet Take 650 mg by mouth as needed. 04/08/2016 Active amLODIPine (NORVASC) 5 MG Tablet Take 5 mg by mouth. 12/09/2018 Active finasteride (PROSCAR) 5 MG Tablet TAKE 1 TABLET BY MOUTH EVERY DAY 12/09/2018 Active gabapentin (NEURONTIN) 600 MG Tablet 3 pills daily 03/17/2020 Active losartan (COZAAR) 50 MG Tablet Take 50 mg by mouth daily. 03/23/2020 Active tiZANidine (ZANAFLEX) 2 MG Tablet Take 2 mg by mouth. 2 in am and 2 in pm 03/29/2019 Active ergocalciferol (VITAMIN D) 39170 UNIT Capsule 10/29/2020 Active omeprazole (PriLOSEC) 40 MG CAPSULE DELAYED RELEASE TAKE 1 CAPSULE BY MOUTH TWICE A DAY 10/17/2020 Active Peak-3 Fatty Acids (FISH OIL PO) Take 2,000 mg by mouth. Active fenofibrate (TRICOR) 145 MG Tablet Take 145 mg by mouth daily. Active aspirin EC 81 MG Tablet Delayed Response aspirin 81 mg tablet,delay ed release Active meloxicam (MOBIC) 15 MG Tablet 03/06/2022 Active pravastatin (PRAVACHOL) 80 MG Tablet 04/07/2022 Active pantoprazole (PROTONIX) 20 MG Tablet Delayed Response Take 20 mg by mouth daily. Active senna-docusate (SENOKOT S) 8.6-50 MG Tablet Take 2 Tablets by mouth. 02/13/2023 Active rOPINIRole (REQUIP) 0.5 MG Tablet Take 0.5 mg by mouth. Active Polyethylene Glycol 3350 Powder Take 17 g by mouth. 02/14/2023 Active atorvastatin (LIPITOR) 40 MG Tablet 04/05/2023 Active DULoxetine (CYMBALTA) [address] Particles Take 30 mg by mouth. 09/10/2023 Active HYDROcodone-pradeep taminophen (NORCO) 5-325 MG Tablet Take 1 Tablet by mouth every 6 hours as needed. 04/18/2024 Active HYDROcodone-pradeep taminophen (NORCO) 7.5-325 MG Tablet Take 1 tablet every 6 hours as needed for severe pain. 04/13/2024 Active traMADol (ULTRAM) 50 MG Tablet Take 50 mg by mouth. 04/19/2024 Active Ferrous Sulfate 325 (65 Fe) MG Tablet Delayed ResponseIndicat ions:Anemia of unknown etiology TAKE 1 TABLET BY MOUTH DAILY. 30 Tablet 4 05/17/2024 Active Active Problems Problem Noted Date Diagnosed Date Leg skin lesion, right 12/07/2020 Lung nodule 04/13/2020 Thrombocytosis 04/17/2017 Anemia of unknown etiology 04/17/2017 Encounters Date Type Department Care Team Description 09/30/2024 2:45 PM CDT Clinical Support [facility] [address] [address] Nurse, Linda Paulson Anemia of unknown etiology (Primary Dx) 09/30/2024 Travel from Last 3 Months Family History Medical History Relation Name Comments Alzheimer's Disease Father Diabetes Father Other-comment Father parkinsons Heart Disease Maternal Grandfather Cancer Mother breast Diabetes Mother Cancer Paternal Grandfather liver Diabetes Paternal Grandfather Cancer Paternal Grandmother breast Other-comment Paternal Grandmother christina ia Relation Name Status Comments Father Maternal Grandfather Mother Paternal Grandfather Paternal Grandmother Social History Tobacco Use Types Packs/Day Years Used Date Smoking Tobacco: Never Smokeless Tobacco: Never Tobacco Cessation:Counseling Given: No Alcohol Use Standard Drinks/Week Comments No 0 [...] Sign Reading Time Taken Comments Blood Pressure 122/72 05/07/2024 9:00 AM CDT Pulse 75 05/07/2024 9:00 AM CDT Temperature 37 C (98.6 F) 05/07/2024 9:00 AM CDT Respiratory Rate 18 05/07/2024 9:00 AM CDT Oxygen Saturation 96% 05/07/2024 9:00 AM CDT Inhaled Oxygen Concentration - - Weight 100.7 kg (221 lb 14.4 oz) 05/07/2024 9:00 AM CDT Height 177.8 cm (5' 10 ) 05/07/2024 9:00 AM CDT Body Mass Index 31.84 05/07/2024 9:00 AM CDT Plan of Treatment Upcoming Encounters Date Type Department Care Team (Late st Contact Info) Description 10/22/2024 9:00 AM CDT Ancillary Procedure [facility] [address] [phone] 11/05/2024 9:15 AM CDT Office Visit [facility] [address] [phone] Harvey Jaimes MD [address] [place] [id number] Health Maintenance Due Date Last Done Comments TdaP Immunization 1964 Colonoscopy 2009 Colorectal Cancer Screening 2009 Cologuard 2014 Immunochemical Fecal Occult Blood 2014 Pneumococcal Immunization (50+ years) (1 of 1 - PCV) 2014 Zoster Immunization (1 of 2) 2014 Influenza Immunization (#1) 2024 SARS-COV-2 Immunization ( season) 2024 12/05/2020, 11/13/2020 Respiratory Syncytial Virus (RSV) Immunization (Adult) (1 - 1-dose 75+ series) 2039 Hepatitis C Virus (HCV) Screening Completed 09/12/2022, 04/12/2022, 04/12/2022, Additional history exists PSA Discussion Completed 05/26/2023 Hepatitis B Immunization Aged Out No longer eligible based on patient's age to complete this topic Meningococcal Immunization (ACWY) Aged Out No longer eligible based on patient's age to complete this topic Rotavirus Immunization Aged Out No lo nger eligible based on patient's age to complete this topic Procedures Procedure Name Priority Date/Time Associated Diagnosis Comments PSA DIAGNOSTIC,TOTAL Routine 05/26/2023 10:55 AM [employer]CR[employer]E [employer]ER HEPATITIS C ANTIBODY Routine 04/12/2022 11:24 AM CDT from Last 3 Months or Most Recently Relevant to Health Maintenance Results * PSA DIAGNOSTIC,TOTAL (05/26/2023 10:55 AM [employer]E W[employer]ER) PSA 0.07 0.00 - 4.00 ng/mL [facility] [employer] Comment: Ian Paramagnetic Particle Chemiluminescent Immunoassay Method 05/26/2023 10:5 5 AM [employer]E W[employer]ER us Brian Bryson MD CHEMISTRY ORDERABLES Final Resul t [facility] [place] [address], * (ABNORMAL) HEPATITIS C ANTIBODY (04/12/2022 11:24 AM CDT) HEPATITIS C VIRUS AB SIGNAL CUTOFF >11.0(H) 0.0 - 0.9 S/CO RATIO [facility] Comment:. HEPATITIS C QUANTITATION SEE FINAL RESULTS IU/ML [facility] TEST INFORMATION COMMENT [facility] Comment: THE QUANTITATIVE RANGE OF THIS ASSAY IS 15 IU/ML TO 100 MILLION IU/ML. INTERPRETATION COMMENT [facility] Comment: POSITIVE HCV ANTIBODY SCREEN WITH THE PRESENCE OF HCV RNA IS CONSISTENT WITH ACTIVE INFECTION. 04/12/2022 11:2 4 AM CDT Narrative [facility] - 04/15/2022 8:13 PM CDT TESTING PERFORMED AT: [facility], [address] [place] [address], [address], PHONE: [phone], RECEIVABLE EXECUTIVE: MADDY MCINTOSH, PHD TESTING PERFORMED AT: [BN] [facility], [address], PHONE: [phone], RECEIVABLE EXECUTIVE: FELIX FLANAGAN MD us Lucas Lopez MD CHEMISTRY ORDERABLES Final Resu lt [facility] from Last 3 Months or Most Recently Relevant to Health Maintenance Insurance Care Teams Satellite Installation Technician Relationship Specialty Start Date End Date Brian Bryson MD [address] [address] PCP - General Family Medicine 11/14/20 Harvey Jaimes MD [address] [place] [address] Consulting Physician Oncology 10/18/21 Lucas Lopez MD [address] [place] [address] Gastroenterology 03/06/22
--- OUTSIDE RECORDS SUMMARY | 2024-10-09 09:00 | XMS_ITS | Encounter Summary ---
Author Organization [facility] Address [address] [place] [address] Phone Care Team Providers Care Assorter Name Role Phone Brian Bryson MD Primary Care Provider [phone] Harvey Jaimes MD Unavailable [phone] Lucas Lopez MD Unavailable [phone] Reason for Visit * Reason Comments Medication Refill Encounter Details Date Type Department Care Team (Late st Contact Info) Description 10/14/2023 Refill [facility] [address] [place] [address] Harvey Jaimes MD [address] [id number] Medication Refill Social History Tobacco [...] documented as of this encounter Functional Status * Question Answer Date of Assessment Author Little interest or pleasure in doing things Not at all 10/17/2023 7:55 AM CDT Aixa Devine , [place] Feeling down, depressed, or hopeless Not at all 10/17/2023 7:55 AM CDT Aixa Devine CMA * Over the past 2 weeks, how often have you been bothered by any of the following problems? Question Answer Date of Assessment Author Patient Health Questionnaire -2 Score 0 10/17/2023 7:55 AM CDT Aixa Devine CMA documented as of this encounter Miscellaneous Notes * Telephone Encounter - Patt Almazan - 10/14/2023 3:20 PM CDT Please refill if appropriate. documented in this encounter Plan of Treatment Upcoming Encounters Date Type Department Care Team (Late st Contact Info) Description 10/22/2024 9:00 AM CDT Ancillary Procedure [facility] [address] [address] 11/05/2024 9:15 AM CDT Office Visit [facility] [address] [phone] Harvey Jaimes MD [address] [id number] documented as of this encounter Visit Diagnoses Diagnosis Anemia of unknown etiology Anemia, unspecified documented in this encounter Additional Health Concerns Assessment Noted Time PHQ-9 Depression Total Score: 0 12/08/19 21 1:48 PM CDT documented as of this encounter Care Teams Assorter Relationship Specialty Start Date End Date Brian Bryson MD [address] [place] [id number] PCP - General Family Medicine 11/14/20 Harvey Jaimes MD [address] [place] [phone] Consulting Physician Oncology 10/18/21 Lucas Lopez MD [address] [place] [id number] Gastroenterology 03/06/22 documented as of this encounter
--- OUTSIDE RECORDS SUMMARY | 2024-10-09 09:00 | XMS_ITS | Data Portability ---
Author Organization [place] - [facility] OFFICE Address [address] [place] [address] Care Team Providers Care Magnet Maker Name Role Phone RUBY MAZARIEGOS Primary Care Provider [phone] Assessment Encounter Date Assessment Date Assessment LastModified by Organization Details LastModified Time 05/08/2022 05/08/2022 Discussed with patient findings, diagnosis, and prognosis. Discussed evaluation and treatment options including risks and benefits with patient, and patient expressed understanding. The following interventions were recommended: heart healthy low-fat, low-sodium diet, continue regular exercise, maintain appropriate weight, continue current medications, and medical follow-up as noted. Not available 05/08/2022 13:26:10 11/28/2022 11/28/2022 Discussed with patient findings, diagnosis, and prognosis. Discussed evaluation and treatment options including risks and benefits with patient, and patient expressed understanding. The following interventions were recommended: heart healthy low-fat, low-sodium diet, continue regular exercise, maintain appropriate weight, continue current medications, and medical follow-up as noted. Not available 11/28/2022 17:17:29 Plan of Treatment Reminders Order Date Submit Date Provider Last Modified By Organization Details Last Modified Time Details Appointments None record ed. Lab None record ed. Referral None record ed. Procedures None record ed. Surgeries None record ed. Imaging None record ed. Medication Orders None record ed. Patient TargetsNo targets recorded. Patient Instructions Encounter Date Encounter Id Patient Instructions Last Modified By Organization Details Last Modified Time 06/27/2022 [id number] Weight loss 20 pounds Exercise advised Low cholesterol diet advised Low sodium diet advised. [email or web address] Not available 06/27/2022 12:43:33 Reason for Referral None Reported. Results Created Date Observation Date Name Description Value Unit Range Abnormal Flag Note LastModifiedBy Organization Detail LastModifiedTime 07/01/2006/18/2022 sleep study , diagn ostic (PROC ) No observ ation record ed. [email or web address] Not Available 2021 16:23:31 10/02/19 23 09/26/2022 CPAP compl iance * No observ ation record ed. [email or web address] Not Available 14:32:24 Result Notes Documentation Provider Name and Address Organization Details Recorded Time Lipid Panel, Blood : 12/26/22:Na 137,K 4.5,Cl 102,CO2 25,Glu 122,BUN 19,Cr 0.70,AST 15,ALT 13,TSH 0.81. 12/26/22:TC 144,TG 141,LDL 84,HDL 32. 12/26/22:WBC 12.9,RBC 4.86,Hgb 15.5,HCT 46.0,PLT 300. Lissa lambert [place] - [facility] 12/27/2022 10:29:54 Lipid Panel, Blood : 12/26/22:Na 137,K 4.5,Cl 102,CO2 25,Glu 122,BUN 0.70,Cr 0.70,AST 15,ALT 13,TSH 0.81. 12/26/22:TC 144,TG 141,LDL 84,HDL 32. 12/26/22:WBC 12.9,RBC 4.86,Hgb 15.5,HCT 46.0,PLT 300. Lissa lambert [place] - [facility] 12/27/2022 10:32:45 Problems Name Problem SNOMED Code Status Onset Date Resolution Date Notes Provider Name and Address Organization Details Recorded Time Obesity 860004195 Active 2020 William lambert [place] - [facility] 11:52:09 Nodule of lung 246735887 Active 2020 William lambert [place] - [facility] 11:57:20 Solitary nodule of lung 362868164 Active 2020 William lambert [place] - [facility] 11:57:54 Carotid artery stenosis 18883276 Active 2020 William lambert [place] - [facility] 12:59:21 Obstructive sleep apnea syndrome 42966444 Active 2020 William Devine [facility], [place] - [facility] 1 13:15:33 Dyspnea on exertion 94128358 Active 2021 [place] [facility] 2 16:38:22 Essential hypertension 54426834 Active 2018 [facility] [place] - [facility] 9 12:35:33 Diverticulitis 867093563 Active 2018 [facility] [place] - [facility] 9 12:36:08 Peptic ulcer 47562172 Active 2018 [facility] [place] - [facility] 9 12:36:29 Arthritis 0318060 Active 2018 [facility] [place] - [facility] 9 12:36:45 Syncope 671075617 Active 2018 William Devine [place], [place] - [facility] 9 13:14:24 Electrocardiog nando abnormal 322846229 Active 2018 William Devine [place], [place] - [facility] 9 13:16:17 Hyperlipidemia 35048188 Active 2018 William Devine [place] - [facility] 9 13:34:17 Problem Notes None recorded. Procedures Surgical History Date Name Laterality Status Provider Name and Address Organization Details Recorded Time endoscopic laser surgery on colon completed [facility] 09/29/2018 12:39:48 operative procedure on knee completed [facility] - [facility] 09/29/2018 12:40:14 splenectomy completed [facility] - [facility] 09/29/2018 12:41:01 Imaging Results Imaging Date Name Status LastModified by Organiz ation Details LastModified Time 06/18/2022 sleep study, diagnostic (PROC) completed [email or web address] Information not available 07/01/2022 16:23:31 09/26/2022 CPAP compliance* completed [email or web address] Information not available 10/01/2022 14:32:24 Procedure Notes None recorded. Medical Equipment None Reported. Allergies Allergen ID Allergen Name Allergen Category Reaction Reaction Severity Criticality Documentation Date Start Date Code Code System Note Provider Name and Address Organization Details Recorded Time 7920 ciproflox acin medicatio n dizziness Not available Not available 09/29/2018 2551 RxNorm Deepika Paulette [place], [place] - [facility] 9 12:35:01 Medications Name Sig Start Date Stop Date Status Note LastModified by Organization Details LastModified Time losartan 50 mg tablet TAKE 1 TABLET BY MOUTH EVERY DAY active Not Available Not Available No t Available nystatin 100,000 unit/mL oral suspensio n TAKE 4 ML (0.4 MILLION UNITS) BY MOUTH 4 TIMES PER DAY active Not Available Not Available No t Available gabapenti n 600 mg tablet TAKE 2 TABLETS BY MOUTH TWICE A DAY active Not Available Not Available No t Available doxycycli ne hyclate 100 mg capsule TAKE 1 TABLET/C APSULE (100 MG TOTAL) BY MOUTH 2 (TWO) TIMES A DAY FOR 7 DAYS 11/07 completed Not Available Not Available Not Available sulfasala zine 500 mg tablet 02/13 completed pt not taking .rm 05/20/19 Not Available Not Available Not Available tizanidin e 2 mg tablet TAKE 2 TABLETS BY MOUTH TWICE A DAY active Not Available Not Available No t Available polyethyl jaron glycol 3350 17 gram oral powder packet 11/29 completed Not Available Not Available Not Available azithromy yaima 250 mg tablet 11/07 completed Not Available Not Available Not Available metoprolo l succinate ER 50 mg tablet,ex tended release 24 hr 09/29 completed Not Available Not Available Not Available hydrocodo ne 5 mg-acetam inophen 325 mg tablet TAKE 1 TABLET BY MOUTH EVERY 6 HOURS NEEDED FOR PAIN FOR UP TO 10 DOSES 02/13 completed Not Available Not Available Not Available meloxicam 15 mg tablet TAKE 1 TABLET BY MOUTH EVERY DAY NEEDED active Not Available Not Available No t Available acetamino phen 300 mg-codein e 30 mg tablet 11/29 completed Not Available Not Available Not Available amlodipin e 5 mg tablet TAKE ONE TABLET BY MOUTH DAILY active Not Available Not Available No t Available peg-elect rolyte solution 420 gram oral solution USE DIRECTED BY OFFICE PER MAILED INSTRUCT IONS 11/28 completed Not Available Not Available Not Available omeprazol e 40 mg capsule,d elayed release TAKE 1 CAPSULE BY MOUTH TWICE A DAY FOR BEFORE MEALS active Not Available Not Available No t Available aspirin 81 mg tablet,de layed release TAKE ONE TABLET BY MOUTH DAILY 2022 active Not Available Not Available Not Avai lable tramadol 50 mg tablet 11/29 completed Not Available Not Available Not Available pantopraz ole 20 mg tablet,de layed release active Not Available Not Available Not Available pravastat in 80 mg tablet TAKE ONE TABLET BY MOUTH DAILY AT BEDTIME 2022 active Not Available Not Available Not Avai lable DOK 100 mg capsule 03/09 completed Not Available Not Available Not Available tamsulosi n 0.4 mg capsule 11/29 completed pt not taking .rm 05/20/19 Not Available Not Available Not Available ropinirol e 0.25 mg tablet 05/22 completed Not Available Not Available Not Available dicyclomi ne 20 mg tablet TAKE ONE TABLET BY MOUTH THREE TIMES A DAY NEEDED FOR PAIN 11/29 completed Not Available Not Available Not Available benzonata te 100 mg capsule TAKE 1 CAPSULE BY MOUTH EVERY 8 HOURS NEEDED FOR COUGH. 11/28 completed Not Available Not Available Not Available hydrocodo ne 7.5 mg-acetam inophen 325 mg tablet 11/29 completed pt not taking .rm 05/20/19 Not Available Not Available Not Available cephalexi n 500 mg capsule TAKE 1 CAPSULE BY MOUTH THREE TIMES A DAY FOR 7 DAYS 11/28 completed Not Available Not Available Not Available pantopraz ole 40 mg tablet,de layed release TAKE 1 TABLET BY MOUTH TWICE A DAY active Not Available Not Available No t Available ropinirol e 0.5 mg tablet active Not Available Not Available Not Available nystatin 100,000 unit/gram topical cream 11/29 completed Not Available Not Available Not Available lisinopri l 10 mg tablet 1 tablet once a day 11/29 completed Not Available Not Available Not Available promethaz ine 25 mg tablet TAKE 1/2 TABLET BY MOUTH EVERY 6 HOURS NEEDED FOR NAUSEA active Not Available Not Available No t Available losartan 25 mg tablet TAKE 1 TABLET BY MOUTH EVERY DAY 11/29 completed Not Available Not Available Not Available gabapenti n 300 mg capsule 1 tablet 3 times a day 11/29 completed 3 caps tid Not Available Not Available Not Available omeprazol e 20 mg capsule,d elayed release 11/29 completed Not Available Not Available Not Available pravastat in 20 mg tablet TAKE 1 TABLET BY MOUTH EVERY DAY 02/13 completed Not Available Not Available Not Available lisinopri l 5 mg tablet 1 tablet once a day 10/13 completed Dosage changed Not Available Not Available Not Available metoprolo l succinate ER 25 mg tablet,ex tended release 24 hr 09/29 completed Not Available Not Available Not Available ergocalci ferol (vitamin D2) 1,250 mcg (50,000 unit) capsule TAKE 1 CAPSULE BY MOUTH ONE TIME PER WEEK active Not Available Not Available No t Available albuterol sulfate HFA 90 mcg/actua tion aerosol inhaler INHALE 2 PUFFS EVERY 4 HOURS NEEDED FOR WHEEZING OR SHORTNES S OF BREATH active Not Available Not Available No t Available ferrous sulfate 325 mg (65 mg iron) tablet,de layed release 05/22 completed Not Available Not Available Not Available celecoxib 100 mg capsule active Not Available Not Available Not Available ondansetr on 4 mg disintegr ating tablet active Not Available Not Available Not Available dicyclomi ne 10 mg capsule TAKE 1 CAPSULE BY MOUTH UP TO FOUR TIMES A DAY NEEDED FOR ABDOMINA L PAIN 11/29 completed Not Available Not Available Not Available finasteri de 5 mg tablet TAKE 1 TABLET BY MOUTH EVERY DAY active Not Available Not Available No t Available naproxen 500 mg tablet 11/29 completed Not Available Not Available Not Available amoxicill in 875 mg-potass ium clavulana te 125 mg tablet TAKE 1 TABLET BY MOUTH EVERY 12 HOURS FOR 7 DAYS 11/07 completed Not Available Not Available Not Available oxycodone 5 mg tablet 11/29 completed pt not taking .rm 05/20/19 Not Available Not Available Not Available solifenac in 10 mg tablet active Not Available Not Available Not Available Multivita mins 1 tablet once a day 05/22 completed Not Available Not Available Not Available fenofibra te nanocryst allized 145 mg tablet TAKE 1 TABLET BY MOUTH EVERY DAY 05/08 completed Not Available Not Available Not Available FeroSul 325 mg (65 mg iron) tablet TAKE 1 TABLET BY MOUTH EVERY DAY active Not Available Not Available No t Available Vitamin B12 1 tablet once a day 11/09 /2023 completed Not Available Not Available Not Available sofosbuvi r 400 mg-velpat asvir 100 mg tablet TAKE 1 TABLET BY MOUTH ONCE DAILY active Not Available Not Available No t Available Fish Oil 1,200 mg (144 mg-216 mg) capsule Take 2 capsules twice a day by oral route. 05/22 completed Not Available Not Available Not Available Vitals Date Recorded Body height Body mass index (BMI) Body weight Heart rate Oxygen saturation Oxygen saturation in Arterial blood by Pulse oximetry Systolic blood pressure Diastolic blood pressure Provider Name and Address Organization Details Last Updated DateTime 2 182.88 cm 32.7 kg/m2 829030. 76 g 79 /min 95 % 95 % 136 mm[Hg] 76 mm[Hg] Anuradha Rod [facility] 2 12:16:14 Date Recorded Body height Body mass index (BMI) Body weight Heart rate Respiratory rate Oxygen saturation Oxygen saturation in Arterial blood by Pulse oximetry Systolic blood pressure Diastolic blood pressure Provider Name and Address Organization Details Last Updated DateTime 2 182.88 cm 34 kg/m2 853967. 68 g 64 /min 16 /min 95 % 95 % 118 mm[Hg] 76 mm[Hg] Willi Rivera [facility] 2 12:36:13 Date Recorded Body height Body mass index (BMI) Body weight Heart rate Oxygen saturation Oxygen saturation in Arterial blood by Pulse oximetry Systolic blood pressure Diastolic blood pressure Provider Name and Address Organization Details Last Updated DateTime 2 182.88 cm 33.4 kg/m2 634801. 72 g 79 /min 96 % 96 % 126 mm[Hg] 72 mm[Hg] Anuradha Rod [facility] 2 12:38:05 Date Recorded Body height Body mass index (BMI) Body weight Heart rate Oxygen saturation Oxygen saturation in Arterial blood by Pulse oximetry Systolic blood pressure Diastolic blood pressure Provider Name and Address Organization Details Last Updated DateTime 3 182.88 cm 33.4 kg/m2 309827. 72 g 66 /min 95 % 95 % 134 mm[Hg] 92 mm[Hg] Whitney Baeza [facility] 3 12:53:06 Date Recorded Body height Body mass index (BMI) Body weight Heart rate Respiratory rate Oxygen saturation Oxygen saturation in Arterial blood by Pulse oximetry Systolic blood pressure Diastolic blood pressure Provider Name and Address Organization Details Last Updated DateTime 3 182.88 cm 33.4 kg/m2 256634. 72 g 72 /min 16 /min 95 % 95 % 124 mm[Hg] 78 mm[Hg] Willi Miguel [place] - [facility] 3 16:36:44 Social History Question Answer Notes LastModified by Organizat ion Details LastModified Time Tobacco Smoking Status Never Smoker Not Available [facility] 05/16/2020 03:30:41 Do You Have An Advance Directive? No [id number] Information not available 05/16/2020 What Is Your Level Of Alcohol Consumption? None [id number] Information not available 05/16/2020 What Is Your Level Of Caffeine Consumption? Moderate [id number] Information not available 05/16/2020 How Much Tobacco Do You Chew? None [id number] Information not available 05/16/2020 What Type Of Diet Are You Following? REGULAR [id number] Information not available 05/16/2020 Which Illicit Or Recreational Drugs Have You Used? Marijuana [id number] Information not available 05/16/2020 Do You Or Have You Ever Used E-cigarettes Or Vape? Never Used Electronic Cigarettes Information not available 11/29/2020 Live Alone Or With Others? With Others Sister In [email or web address] Information not available 09/29/2018 Marital Status [email or web address] Informatio n not available 09/29/2018 What Was The Date Of Your Most Recent Tobacco Screening? 01/12/2019 [id number] Information not available 05/16/2020 How Many Children Do You Have? 0 [id number] Information not available 05/16/2020 Do You Or Have You Ever Used Smokeless Tobacco? Never Used Smokeless Tobacco Information not available 11/29/2020 How Much Tobacco Do You Smoke? No Information not available 11/29/2020 General Stress Level Low [email or web address] Information not available 09/29/2018 How Many Years Have You Smoked Tobacco? 0 [id number] Information not available 05/16/2020 Sex: Unknown Functional Status Question Answer Note LastModified by Organization D etails LastModified Time What is your exercise level? None [id number] Information not available 05/16/2020 Mental Status None recorded. Family History Relationship Description Onset Age of this Age Resolved Age Notes LastModified by Organization Details LastModified Time Father No current problems or disability Diabet es [email or web address] Not available 09/29/2018 12:37:33 Mother No current problems or disability Diabet is,joyce ast cancer [email or web address] Not available 09/29/2018 12:38:02 Notes:father with CVAs No pr emature [place]. Medical History Condition Response Genitourinary Disease Y GERD/Reflux N Hypertension Y Past Encounters Encounter ID Performer Location Encounter Start Date Encounter Closed Date Diagnosis/Indication Diagnosis SNOMED-CT Code Diagnosis ICD10 Code Diagnosis Note [id number] [facility] Esposito Office [address] [place] [address] 09/29/2018 11:59:45 09/29/2018 13:48:59 Essential hypertension 00765564 I10 Patient's blood pressure is {{well-con trolled* s omewhat well-contr olled not well-contr olled}} on present medical therapy. Patient is {{tolerati ng, without difficulty ,* having side effects with}} the current medication s. I have {{not made* made the following} } changes to the current regimen. {{ Patient is advised to maintain a blood pressure diary.*}} Patient was advised to eat a low-sodium diet (2 grams sodium or less daily). Syncope [id number] R55 Had unwitness syncope while walking and a subsequent pre-syncop al episode while seated. Obtain exercise nuclear stress test to exclude ischemia. Obtain echo to evaluate for structural /functiona l disease. Obtain 24 hour Holter. Obtain carotid U/S. Obtain CMP, Mg, TSH, FLP, CBC. Electrocar diogram abnormal 294532088 R94.31 Had EKG 09/29/2018 Sinus Rhythm-Fir st degree A-V block, inferolate ral ST elevation, abnormal. Patient presents with syncope and abnormal ECG. Given the history, exam findings and {{high int ermediate * low}} cardiac risk factors, I {{feel* do not feel}} additional investigat ion is warranted. I have made arrangemen ts in the near future for {{an exercise stress echocardio gram to evaluate for any ischemia, structural heart disease, or exercise induced arrythmia an exercise stress nuclear test an exercise stress nuclear test (stress echo not possible due to COPD or obesity) a n exercise stress nuclear test and an echocardio gram to evaluate for any ischemia or structural heart disease* a pharmacolo gic stress nuclear test due to reduced functional capacity or conduction abnormalit y cardiac catheteriz ation an echocardio gram to evaluate left ventricula r function and any structural heart disease or valvular abnormalit y}}. The procedure was discussed with the patient, and risks, benefits, and alternativ e options were explained. {{ The patient was informed about heart catheteriz ation and interventi onal procedures and agrees to proceed.}} Appropriat e labwork {{has has not*}} been performed recently, therefore I {{have not have*} } made arrangemen ts for further testing. I have asked the patient to curtail exercise and activities until our investigat ion is complete. I have {{made no* made the following} } adjustment s to the present medical regimen. {{ Patient has been started on daily aspirin.}} {{ Patient has been given a prescripti on for sublingual nitroglyce rin.}} [id number] [facility] Espos[facility] Office [address] [place] [address] 10/13/2018 10:40:30 10/13/2018 12:17:00 Syncope [id number] R55 Had unwitness syncope while walking and a subsequent pre-syncop al episode while seated. Subsequent ly, he was changed per PCP from metoprolol ER 50 mg qd to lisino Obtain exercise nuclear stress test to exclude ischemia. Obtain echo to evaluate for structural /functiona l disease. Obtain 24 hour Holter. Obtain carotid U/S. Obtain BMP, Mg, TSH, FLP 3 weeks after increase in lisinopril to 10 mg 10/09/18. Electrocar diogram abnormal [id number] R94.31 Had EKG 09/29/2018 Sinus Rhythm-Fir st degree A-V block, inferolate ral ST elevation, abnormal. Patient presents with syncope and abnormal ECG. Given the history, exam findings and {{high int ermediate * low}} cardiac risk factors, I {{feel* do not feel}} additional investigat ion is warranted. I have made arrangemen ts in the near future for {{an exercise stress echocardio gram to evaluate for any ischemia, structural heart disease, or exercise induced arrythmia an exercise stress nuclear test an exercise stress nuclear test (stress echo not possible due to COPD or obesity) a n exercise stress nuclear test and an echocardio gram to evaluate for any ischemia or structural heart disease* a pharmacolo gic stress nuclear test due to reduced functional capacity or conduction abnormalit y cardiac catheteriz ation an echocardio gram to evaluate left ventricula r function and any structural heart disease or valvular abnormalit y}}. The procedure was discussed with the patient, and risks, benefits, and alternativ e options were explained. {{ The patient was informed about heart catheteriz ation and interventi onal procedures and agrees to proceed.}} Appropriat e labwork {{has has not*}} been performed recently, therefore I {{have not have*} } made arrangemen ts for further testing. I have asked the patient to curtail exercise and activities until our investigat ion is complete. I have {{made no* made the following} } adjustment s to the present medical regimen. {{ Patient has been started on daily aspirin.}} {{ Patient has been given a prescripti on for sublingual nitroglyce rin.}} Essential hypertension [id number] I10 Patient's blood pressure is {{well-con trolled so mewhat well-contr olled not well-contr olled*}} on present medical therapy. Patient is {{tolerati ng, without difficulty ,* having side effects with}} the current medication s. I have {{not made made the following* }} changes to the current regimen. {{ Patient is advised to maintain a blood pressure diary.*}} Patient was advised to eat a low-sodium diet (2 grams sodium or less daily). Reports home BP elevated, with PCP increasing patient to Lisinopril 10 mg qd 10/09/18. Obtain BMP, Mg in 3 weeks. Began amlodipine 5 mg qd 10/13/18. [id number] [facility] Office [address] [place] [address] 11/13/2018 11:31:14 11/13/2018 13:43:36 Syncope [id number] R55 Had unwitnesse d syncope while walking and a subsequent pre-syncop al episode while seated. Subsequent ly, he was changed per PCP from metoprolol ER 50 mg qd to lisinopril . Had 11/02/18 Exercise nuclear: Negative stress test for ischemia. Normal LV systolic function. Artifact noted. No previous study to compare. Submaximal exercise stress test. The sensitivit y of the test is limited by the inability to achieve target heart rate. LVEF 50%. Had echo 11/02/18: LV chamber size is normal. LV wall thickness is normal. There is normal global systolic function and contractil ity. The estimated left ventricle ejection fraction is 55-60%(nor mal). E to A mitral inflow reversal is consistent with possible diastolic dysfunctio n. Left atrium chamber is mildly dilated. There is trivial aortic regurgitat ion. There is mild thickening of mitral valve anterior leaflet. There is trace tricuspid regurgitat ion. Obtained 24 hour Holter 11/09/18: unremarkab le. Obtain carotid U/S 11/02/18: < 15% B ICA. Obtained BMP (normal), Mg 2.6 (high), TSH (0.195 low), 3 weeks after increase in lisinopril to 10 mg 10/09/18. Obtain FT4. Electrocar diogram abnormal [id number] R94.31 Had EKG 09/29/2018 Sinus Rhythm-Fir st degree A-V block, inferolate ral ST elevation, abnormal. {{ Patient has been given a prescripti on for sublingual nitroglyce rin.}} Essential hypertension [id number] I10 Patient's blood pressure is {{well-con trolled* s omewhat well-contr olled not well-contr olled}} on present medical therapy. Patient is {{tolerati ng, without difficulty ,* having side effects with}} the current medication s. I have {{not made* made the following} } changes to the current regimen. {{ Patient is advised to maintain a blood pressure diary.*}} Patient was advised to eat a low-sodium diet (2 grams sodium or less daily). Reports home BP elevated, with PCP increasing patient to Lisinopril 10 mg qd 10/09/18. Began amlodipine 5 mg qd 10/13/18. Hyperlipidemia [id number] E78.2 Had LIPID 10/29/2018: LDL 115. Decrease dietary chol. and fat; repeat in 6 months. [id number] William Esposito Office [address] [place] [address] 01/12/2019 11:55:16 01/12/2019 14:03:10 Syncope [id number] R55 No recurrence . Had unwitnesse d syncope while walking and a subsequent pre-syncop al episode while seated. Subsequent ly, he was changed per PCP from metoprolol ER 50 mg qd to lisinopril . Had 11/02/18 Exercise nuclear: Negative stress test for ischemia. Normal LV systolic function. Artifact noted. No previous study to compare. Submaximal exercise stress test. The sensitivit y of the test is limited by the inability to achieve target heart rate. LVEF 50%. Had echo 11/02/18: LV chamber size is normal. LV wall thickness is normal. There is normal global systolic function and contractil ity. The estimated left ventricle ejection fraction is 55-60%(nor mal). E to A mitral inflow reversal is consistent with possible diastolic dysfunctio n. Left atrium chamber is mildly dilated. There is trivial aortic regurgitat ion. There is mild thickening of mitral valve anterior leaflet. There is trace tricuspid regurgitat ion. Obtained 24 hour Holter 11/09/18: unremarkab le. Obtain carotid U/S 11/02/18: < 15% B ICA. Obtained BMP (normal), Mg 2.6 (high), TSH (0.195 low), 3 weeks after increase in lisinopril to 10 mg 10/09/18. Obtained FT4 11/27/18: 1.02 normal. He is seeing neurologis t for EEG. For leg cramping at night, obtain BMP, Mg. Electrocar diogram abnormal [id number] R94.31 Had EKG 09/29/2018 Sinus Rhythm-Fir st degree A-V block, inferolate ral ST elevation, abnormal. {{ Patient has been given a prescripti on for sublingual nitroglyce rin.}} Essential hypertension [id number] I10 Patient's blood pressure is {{well-con trolled* s omewhat well-contr olled not well-contr olled}} on present medical therapy. Patient is {{tolerati ng, without difficulty ,* having side effects with}} the current medication s. I have {{not made* made the following} } changes to the current regimen. {{ Patient is advised to maintain a blood pressure diary.*}} Patient was advised to eat a low-sodium diet (2 grams sodium or less daily). Reports home BP elevated, with PCP increasing patient to Lisinopril 10 mg qd 10/09/18. Began amlodipine 5 mg qd 10/13/18. Hyperlipidemia [id number] E78.2 Had LIPID 10/29/2018: LDL 115. Decrease dietary chol. and fat; repeat in 6 months. [id number] MD Dominik Bautista Office [address] [place] [facility] [place] [address] 05/20/2019 14:03:10 05/20/2019 14:31:01 Syncope [id number] R55 No recurrence . Had unwitnesse d syncope while walking and a subsequent pre-syncop al episode while seated. Subsequent ly, he was changed per PCP from metoprolol ER 50 mg qd to lisinopril . Had 11/02/18 Exercise nuclear: Negative stress test for ischemia. Normal LV systolic function. Artifact noted. No previous study to compare. Submaximal exercise stress test. The sensitivit y of the test is limited by the inability to achieve target heart rate. LVEF 50%. Had echo 11/02/18: LV chamber size is normal. LV wall thickness is normal. There is normal global systolic function and contractil ity. The estimated left ventricle ejection fraction is 55-60%(nor mal). E to A mitral inflow reversal is consistent with possible diastolic dysfunctio n. Left atrium chamber is mildly dilated. There is trivial aortic regurgitat ion. There is mild thickening of mitral valve anterior leaflet. There is trace tricuspid regurgitat ion. Obtained 24 hour Holter 11/09/18: unremarkab le. Obtain carotid U/S 11/02/18: < 15% B ICA. Obtained BMP (normal), Mg 2.6 (high), TSH (0.195 low), 3 weeks after increase in lisinopril to 10 mg 10/09/18. Obtained FT4 11/27/18: 1.02 normal. He is seeing neurologis t for EEG. For leg cramping at night, obtain BMP, Mg. Electrocar diogram abnormal [id number] R94.31 Had EKG 09/29/2018 Sinus Rhythm-Fir st degree A-V block, inferolate ral ST elevation, abnormal. {{ Patient has been given a prescripti on for sublingual nitroglyce rin.}} Essential hypertension [id number] I10 Patient's blood pressure is {{well-con trolled* s omewhat well-contr olled not well-contr olled}} on present medical therapy. Patient is {{tolerati ng, without difficulty ,* having side effects with}} the current medication s. I have {{not made* made the following} } changes to the current regimen. {{ Patient is advised to maintain a blood pressure diary.*}} Patient was advised to eat a low-sodium diet (2 grams sodium or less daily). Reports home BP elevated, with PCP increasing patient to Lisinopril 10 mg qd 10/09/18. Began amlodipine 5 mg qd 10/13/18. Hyperlipidemia [id number] E78.2 Had LIPID 10/29/2018: LDL 115. Decrease dietary chol. and fat; repeat in 6 months. [address] [facility] [address] [place] [address] 11/29/2020 11:10:01 11/29/2020 12:03:13 Syncope [id number] R55 No recurrence except single episode of probable cough syncope 06/2020. Previously , had unwitnesse d syncope while walking and a subsequent pre-syncop al episode while seated. Subsequent ly, he was changed per PCP from metoprolol ER 50 mg qd to lisinopril . Had 11/02/18 Exercise nuclear: Negative stress test for ischemia. Normal LV systolic function. Artifact noted. No previous study to compare. Submaximal exercise stress test. The sensitivit y of the test is limited by the inability to achieve target heart rate. LVEF 50%. Had echo 11/02/18: LV chamber size is normal. LV wall thickness is normal. There is normal global systolic function and contractil ity. The estimated left ventricle ejection fraction is 55-60%(nor mal). E to A mitral inflow reversal is consistent with possible diastolic dysfunctio n. Left atrium chamber is mildly dilated. There is trivial aortic regurgitat ion. There is mild thickening of mitral valve anterior leaflet. There is trace tricuspid regurgitat ion. Obtained 24 hour Holter 11/09/18: unremarkab le. Obtained BMP (normal), Mg 2.6 (high), TSH (0.195 low), 3 weeks after increase in lisinopril to 10 mg 10/09/18. Obtained FT4 11/27/18: 1.02 normal. He is seeing neurologis t for EEG. For leg cramping at night, obtain BMP, Mg. Obtained carotid U/S 11/02/18: < 15% B ICA. Given recurrent syncope, repeat carotid U/S. Electrocar diogram abnormal [id number] R94.31 Had EKG 09/29/2018 Sinus Rhythm-Fir st degree A-V block, inferolate ral ST elevation, abnormal. {{ Patient has been given a prescripti on for sublingual nitroglyce rin.}} Essential hypertension [id number] I10 Patient's blood pressure is {{well-con trolled so mewhat well-contr olled* not well-contr olled}} on present medical therapy. Patient is {{tolerati ng, without difficulty ,* having side effects with}} the current medication s. I have {{not made* made the following} } changes to the current regimen. {{ Patient is advised to maintain a blood pressure diary.*}} Patient was advised to eat a low-sodium diet (2 grams sodium or less daily). Reports home BP elevated, with PCP increasing patient to Lisinopril 10 mg qd 10/09/18. Began amlodipine 5 mg qd 10/13/18. He forgot to take meds today. Hyperlipidemia [id number] E78.2 Had LIPID 10/29/2018: LDL 115. Has decreased dietary chol. and fat; repeat FLP, BMP, Mg. Obesity 753988093 E66.9 20 lb. weight loss recommende d over the next 2 months. Solitary n odule of lung [id number] R91.1 Had 03/27/2020 : CTA Abdomen + Pevis ; 10 No acute findings in the abdomen or pelvis 20 Mild ventral abdominal diastasis along a ventral incision line with protrusion of multiple underlying small bowel loops ,No bowel obstructio n 3) 7 mm ground glass nodule in the lingula inchanged since 04/05/2017 Through favoured to benign follow up CT in 2 years is recommende d to complete 5 year follow up for stability Continue oncology f/u, with repeat imaging 03/2022. [id number] [address] Devine [facility] [address] [place] [address] 01/31/2021 12:38:51 01/31/2021 13:26:35 Syncope [id number] R55 No recurrence except single episode of probable cough syncope 06/2020. Previously , had unwitnesse d syncope while walking and a subsequent pre-syncop al episode while seated. Subsequent ly, he was changed per PCP from metoprolol ER 50 mg qd to lisinopril . Had 11/02/18 Exercise nuclear: Negative stress test for ischemia. Normal LV systolic function. Artifact noted. No previous study to compare. Submaximal exercise stress test. The sensitivit y of the test is limited by the inability to achieve target heart rate. LVEF 50%. Had echo 11/02/18: LV chamber size is normal. LV wall thickness is normal. There is normal global systolic function and contractil ity. The estimated left ventricle ejection fraction is 55-60%(nor mal). E to A mitral inflow reversal is consistent with possible diastolic dysfunctio n. Left atrium chamber is mildly dilated. There is trivial aortic regurgitat ion. There is mild thickening of mitral valve anterior leaflet. There is trace tricuspid regurgitat ion. Obtained 24 hour Holter 11/09/18: unremarkab le. Obtained BMP (normal), Mg 2.6 (high), TSH (0.195 low), 3 weeks after increase in lisinopril to 10 mg 10/09/18. Obtained FT4 11/27/18: 1.02 normal. He is seeing neurologis t for EEG. Obtained carotid U/S 11/02/18: < 15% B ICA. Obtained carotid U/S 01/12/21: < 50% B ICA.. Electrocar diogram abnormal [id number] R94.31 Had EKG 09/29/2018 Sinus Rhythm-Fir st degree A-V block, inferolate ral ST elevation, abnormal. {{ Patient has been given a prescripti on for sublingual nitroglyce rin.}} Essential hypertension [id number] I10 Patient's blood pressure is {{well-con trolled* s omewhat well-contr olled not well-contr olled}} on present medical therapy. Patient is {{tolerati ng, without difficulty ,* having side effects with}} the current medication s. I have {{not made* made the following} } changes to the current regimen. {{ Patient is advised to maintain a blood pressure diary.*}} Patient was advised to eat a low-sodium diet (2 grams sodium or less daily). Reports home BP elevated, with PCP increasing patient to Lisinopril 10 mg qd 10/09/18. Began amlodipine 5 mg qd 10/13/18. Had 01/10/21: K 4.4, Mg 2.0, Cr 0.9, gluc 100, TSH 0.78, TG 306, HDL 30, LDL 66. Hyperlipidemia [id number] E78.2 Had LIPID 10/29/2018: LDL 115. Has decreased dietary chol. and fat. Had 01/10/21: TG 306, HDL 30, LDL 66. Needs to keep LDL less than 70, and HDL more than 40. Not on statin.Inc rease fish oil to 2 gm bid 01/31/21. Reduce sugary foods.Incr ease walking. Obesity [id number] E66.9 20 lb. weight loss recommende d over the next 2 months. Solitary n odule of lung [id number] R91.1 Had 03/27/2020 : CTA Abdomen + Pevis ; 10 No acute findings in the abdomen or pelvis 20 Mild ventral abdominal diastasis along a ventral incision line with protrusion of multiple underlying small bowel loops ,No bowel obstructio n 3) 7 mm ground glass nodule in the lingula inchanged since 04/05/2017 Through favoured to benign follow up CT in 2 years is recommende d to complete 5 year follow up for stability Continue oncology f/u, with repeat CT imaging pending 01/2021 with oncologist . Carotid ar ted stenosis [id number] I65.29 Mild. Obtained carotid U/S 11/02/18: < 15% B ICA. Obtained carotid U/S 01/12/21: < 50% B ICA. Began ASA 81 mg qd 01/31/21. Needs to keep LDL less than 70, and HDL more than 40. Obtain repeat carotid U/S 01/2022. Obstructiv e sleep apnea syndrome [id number] G47.33 Reports snoring and PND. Reports people have told him his breathing is interrupte d when he sleeps. Reports daytime somnolence and fatigue. Had normal sleep study per patient report 5 years ago. Obtain home sleep study. [id number] [address] Devine [facility] [address] [place] [address] 11/07/2021 14:06:12 11/07/2021 16:50:02 Syncope [id number] R55 No recurrence except single episode of probable cough syncope 06/2020. Previously , had unwitnesse d syncope while walking and a subsequent pre-syncop al episode while seated. Subsequent ly, he was changed per PCP from metoprolol ER 50 mg qd to lisinopril . Had 11/02/18 Exercise nuclear: Negative stress test for ischemia. Normal LV systolic function. Artifact noted. No previous study to compare. Submaximal exercise stress test. The sensitivit y of the test is limited by the inability to achieve target heart rate. LVEF 50%. Had echo 11/02/18: LV chamber size is normal. LV wall thickness is normal. There is normal global systolic function and contractil ity. The estimated left ventricle ejection fraction is 55-60%(nor mal). E to A mitral inflow reversal is consistent with possible diastolic dysfunctio n. Left atrium chamber is mildly dilated. There is trivial aortic regurgitat ion. There is mild thickening of mitral valve anterior leaflet. There is trace tricuspid regurgitat ion. Obtained 24 hour Holter 11/09/18: unremarkab le. Obtained BMP (normal), Mg 2.6 (high), TSH (0.195 low), 3 weeks after increase in lisinopril to 10 mg 10/09/18. Obtained FT4 11/27/18: 1.02 normal. He is seeing neurologis t for EEG. Obtained carotid U/S 11/02/18: < 15% B ICA. Obtained carotid U/S 01/12/21: < 50% B ICA.. Electrocar diogram abnormal [id number] R94.31 Had EKG 09/29/2018 Sinus Rhythm-Fir st degree A-V block, inferolate ral ST elevation, abnormal. {{ Patient has been given a prescripti on for sublingual nitroglyce rin.}} Essential hypertension [id number] I10 Patient's blood pressure is {{well-con trolled so mewhat well-contr olled* not well-contr olled}} on present medical therapy. Patient is {{tolerati ng, without difficulty ,* having side effects with}} the current medication s. I have {{not made* made the following} } changes to the current regimen. {{ Patient is advised to maintain a blood pressure diary.*}} Patient was advised to eat a low-sodium diet (2 grams sodium or less daily). Reports home BP elevated, with PCP increasing patient to Lisinopril 10 mg qd 10/09/18. Began amlodipine 5 mg qd 10/13/18. Had 01/10/21: K 4.4, Mg 2.0, Cr 0.9, gluc 100, TSH 0.78, TG 306, HDL 30, LDL 66. Patient forgot to take meds today. Hyperlipidemia 85395434 E78.2 Had LIPID 10/29/2018: LDL 115. Has decreased dietary chol. and fat. Had 01/10/21: TG 306, HDL 30, LDL 66. Needs to keep LDL less than 70, and HDL more than 40. Now on statin and fenofibrat e.Increase fish oil to 2 gm bid 01/31/21. Reduce sugary foods.Incr ease walking. Obtain FLP, CMP, Mg, CBC, TSH. Obesity 472995655 E66.9 20 lb. weight loss recommende d over the next 2 months. Solitary n odule of lung [id number] R91.1 Had 03/27/2020 : CTA Abdomen + Pevis ; 10 No acute findings in the abdomen or pelvis 20 Mild ventral abdominal diastasis along a ventral incision line with protrusion of multiple underlying small bowel loops ,No bowel obstructio n 3) 7 mm ground glass nodule in the lingula inchanged since 04/05/2017 Through favoured to benign follow up CT in 2 years is recommende d to complete 5 year follow up for stability Continue oncology f/u, with repeat CT imaging pending 01/2021 with oncologist . He had recent chest CT per oncologist . Carotid ar ted stenosis [id number] I65.29 Mild. Obtained carotid U/S 11/02/18: < 15% B ICA. Obtained carotid U/S 01/12/21: < 50% B ICA. Began ASA 81 mg qd 01/31/21. Needs to keep LDL less than 70, and HDL more than 40. Obtain repeat carotid U/S 01/2022. Obstructiv e sleep apnea syndrome [id number] G47.33 Reports snoring and PND. Reports people have told him his breathing is interrupte d when he sleeps. Reports daytime somnolence and fatigue. Had normal sleep study per patient report 5 years ago. Obtained home sleep study 03/08/21: very severe, non-positi onal ENEDINA. Begin CPAP. Dyspnea on exertion 6084 5006 R06.09 Obtain echo to evaluate for structural /functiona l disease. Consider stress test pending response to CPAP. [id number] [address] Devine [facility] [address] [place] [address] 12/12/2021 14:13:09 12/12/2021 16:45:36 Syncope [id number] R55 No recurrence except single episode of probable cough syncope 06/2020. Previously , had unwitnesse d syncope while walking and a subsequent pre-syncop al episode while seated. Subsequent ly, he was changed per PCP from metoprolol ER 50 mg qd to lisinopril . Had 11/02/18 Exercise nuclear: Negative stress test for ischemia. Normal LV systolic function. Artifact noted. No previous study to compare. Submaximal exercise stress test. The sensitivit y of the test is limited by the inability to achieve target heart rate. LVEF 50%. Had ( 2) ECHO: LV chamber size is normal. There is normal global systolic function and contractil ity. The estimated left ventricle ejection fraction is 55-60% (normal). Normal RVSP. Had echo 11/02/18: LV chamber size is normal. LV wall thickness is normal. There is normal global systolic function and contractil ity. The estimated left ventricle ejection fraction is 55-60%(nor mal). E to A mitral inflow reversal is consistent with possible diastolic dysfunctio n. Left atrium chamber is mildly dilated. There is trivial aortic regurgitat ion. There is mild thickening of mitral valve anterior leaflet. There is trace tricuspid regurgitat ion. Obtained 24 hour Holter 11/09/18: unremarkab le. Obtained BMP (normal), Mg 2.6 (high), TSH (0.195 low), 3 weeks after increase in lisinopril to 10 mg 10/09/18. Obtained FT4 11/27/18: 1.02 normal. He is seeing neurologis t for EEG. Obtained carotid U/S 11/02/18: < 15% B ICA. Obtained carotid U/S 01/12/21: < 50% B ICA.. Electrocar diogram abnormal [id number] R94.31 Had EKG 09/29/2018 Sinus Rhythm-Fir st degree A-V block, inferolate ral ST elevation, abnormal. {{ Patient has been given a prescripti on for sublingual nitroglyce rin.}} Essential hypertension [id number] I10 Patient's blood pressure is {{well-con trolled* s omewhat well-contr olled not well-contr olled}} on present medical therapy. Patient is {{tolerati ng, without difficulty ,* having side effects with}} the current medication s. I have {{not made* made the following} } changes to the current regimen. {{ Patient is advised to maintain a blood pressure diary.*}} Patient was advised to eat a low-sodium diet (2 grams sodium or less daily). Reports home BP elevated, with PCP increasing patient to Lisinopril 10 mg qd 10/09/18. Began amlodipine 5 mg qd 10/13/18. Had 01/10/21: K 4.4, Mg 2.0, Cr 0.9, gluc 100, TSH 0.78, TG 306, HDL 30, LDL 66. Had 11/20/21: NA 137 K 5.0 CH 103 Co2 27 BUN 21 CR 1.10 GL 93 Mag 2.1 TP 7.4 AP 44 ALT 20 AST 16, normal TSH11/20/21 WBC 10.3 RBC 4.70 Plat 338 HCT 44.2 HGB 14.3 Reduce potassium salt substitute . Obtain BMP, Mg. Hyperlipidemia 34259266 E78.2 Had LIPID 10/29/2018: LDL 115. Has decreased dietary chol. and fat. Had 01/10/21: TG 306, HDL 30, LDL 66. Needs to keep LDL less than 70, and HDL more than 40. Now on statin and fenofibrat e.Increase fish oil to 2 gm bid 01/31/21. Reduce sugary foods.Incr ease walking. Obtained 11/20/21 Chol 174 Trig 175 HDL 34 LDL 105 Increased to pravastati n 80 mg HS 12/12/21. Obesity 419917395 E66.9 20 lb. weight loss recommende d over the next 2 months. Solitary n odule of lung [id number] R91.1 Had 03/27/2020 : CTA Abdomen + Pevis ; 10 No acute findings in the abdomen or pelvis 20 Mild ventral abdominal diastasis along a ventral incision line with protrusion of multiple underlying small bowel loops ,No bowel obstructio n 3) 7 mm ground glass nodule in the lingula inchanged since 04/05/2017 Through favoured to benign follow up CT in 2 years is recommende d to complete 5 year follow up for stability Continue oncology f/u, with repeat CT imaging pending 01/2021 with oncologist . He had recent chest CT per oncologist . Carotid ar ted stenosis [id number] I65.29 Mild. Obtained carotid U/S 11/02/18: < 15% B ICA. Obtained carotid U/S 01/12/21: < 50% B ICA. Began ASA 81 mg qd 01/31/21. Needs to keep LDL less than 70, and HDL more than 40. Obtain repeat carotid U/S 01/2022. Obstructiv e sleep apnea syndrome 52027294 G47.33 Reports snoring and PND. Reports people have told him his breathing is interrupte d when he sleeps. Reports daytime somnolence and fatigue. Had normal sleep study per patient report 5 years ago. Obtained home sleep study 03/08/21: very severe, non-positi onal ENEDINA. Had ( 2) ECHO: LV chamber size is normal. There is normal global systolic function and contractil ity. The estimated left ventricle ejection fraction is 55-60% (normal). Normal RVSP. Begin CPAP. He is still awaiting CPAP due to delay over recalls and device availabili ty. Dyspnea on exertion 6084 5006 R06.09 Patient presents with exertional dyspnea which can be an anginal equivalent . Given the history, exam findings and {{high* in termediate low}} cardiac risk factors, I {{feel* do not feel}} additional investigat ion is warranted. I have made arrangemen ts in the near future for {{an exercise stress echocardio gram to evaluate for any ischemia, structural heart disease, or exercise induced arrythmia an exercise stress nuclear test an exercise stress nuclear test (stress echo not possible due to COPD or obesity)* an exercise stress nuclear test and an echocardio gram to evaluate for any ischemia or structural heart disease a pharmacolo gic stress nuclear test due to reduced functional capacity or conduction abnormalit y cardiac catheteriz ation an echocardio gram to evaluate left ventricula r function and any structural heart disease or valvular abnormalit y}}. The procedure was discussed with the patient, and risks, benefits, and alternativ e options were explained. {{ The patient was informed about heart catheteriz ation and interventi onal procedures and agrees to proceed.}} Appropriat e labwork {{has* has not}} been performed recently, therefore I {{have not* have} } made arrangemen ts for further testing. I have asked the patient to curtail exercise and activities until our investigat ion is complete. I have {{made no made the following* }} adjustment s to the present medical regimen. {{ Patient has been started on daily aspirin.}} {{ Patient has been given a prescripti on for sublingual nitroglyce rin.}} Had ( 2) ECHO: LV chamber size is normal. There is normal global systolic function and contractil ity. The estimated left ventricle ejection fraction is 55-60% (normal). Normal RVSP. [id number] [facility] [address] [place] [address] 02/13/2022 11:09:23 02/13/2022 12:31:02 Syncope [id number] R55 No recurrence except single episode of probable cough syncope 06/2020. Previously , had unwitnesse d syncope while walking and a subsequent pre-syncop al episode while seated. Subsequent ly, he was changed per PCP from metoprolol ER 50 mg qd to lisinopril . Had 11/02/18 Exercise nuclear: Negative stress test for ischemia. Normal LV systolic function. Artifact noted. No previous study to compare. Submaximal exercise stress test. The sensitivit y of the test is limited by the inability to achieve target heart rate. LVEF 50%. Had (05/11/202 2) ECHO: LV chamber size is normal. There is normal global systolic function and contractil ity. The estimated left ventricle ejection fraction is 55-60% (normal). Normal RVSP. Had echo 11/02/18: LV chamber size is normal. LV wall thickness is normal. There is normal global systolic function and contractil ity. The estimated left ventricle ejection fraction is 55-60%(nor mal). E to A mitral inflow reversal is consistent with possible diastolic dysfunctio n. Left atrium chamber is mildly dilated. There is trivial aortic regurgitat ion. There is mild thickening of mitral valve anterior leaflet. There is trace tricuspid regurgitat ion. Obtained 24 hour Holter 11/09/18: unremarkab le. Obtained BMP (normal), Mg 2.6 (high), TSH (0.195 low), 3 weeks after increase in lisinopril to 10 mg 10/09/18. Obtained FT4 11/27/18: 1.02 normal. He saw neurologis t for EEG. Obtained carotid U/S 11/02/18: < 15% B ICA. Obtained carotid U/S 01/12/21: < 50% B ICA.. Had US, carotid artery 01/04/2022 : Antegrade flow noted in both vertebral arteries. Very mild bilateral internal carotid artery stenosis with less than 15% diameter stenosis. Electrocar diogram abnormal [id number] R94.31 Had EKG 09/29/2018 Sinus Rhythm-Fir st degree A-V block, inferolate ral ST elevation, abnormal. {{ Patient has been given a prescripti on for sublingual nitroglyce rin.}} Essential hypertension [id number] I10 Patient's blood pressure is {{well-con trolled* s omewhat well-contr olled not well-contr olled}} on present medical therapy. Patient is {{tolerati ng, without difficulty ,* having side effects with}} the current medication s. I have {{not made* made the following} } changes to the current regimen. {{ Patient is advised to maintain a blood pressure diary.*}} Patient was advised to eat a low-sodium diet (2 grams sodium or less daily). Reports home BP elevated, with PCP increasing patient to Lisinopril 10 mg qd 10/09/18. Began amlodipine 5 mg qd 10/13/18. Had 01/10/21: K 4.4, Mg 2.0, Cr 0.9, gluc 100, TSH 0.78, TG 306, HDL 30, LDL 66. Had 11/20/21: NA 137 K 5.0 CH 103 Co2 27 BUN 21 CR 1.10 GL 93 Mag 2.1 TP 7.4 AP 44 ALT 20 AST 16, normal TSH11/20/21 WBC 10.3 RBC 4.70 Plat 338 HCT 44.2 HGB 14.3 Reduced potassium salt substitute . Obtained 01/11/2022 BMP-GL 100 BUN 25 K 4.2 CR 1.0 NA 138 CA 9.1 MAG-2.2 Hyperlipidemia [id number] E78.2 Had LIPID 10/29/2018: LDL 115. Has decreased dietary chol. and fat. Had 01/10/21: TG 306, HDL 30, LDL 66. Needs to keep LDL less than 70, and HDL more than 40. Now on statin and fenofibrat e.Increase fish oil to 2 gm bid 01/31/21. Reduce sugary foods.Incr ease walking. Obtained 11/20/21 Chol 174 Trig 175 HDL 34 LDL 105 Increased to pravastati n 80 mg HS 12/12/21. Obtain FLP, CMP, Mg. Obesity [id number] E66.9 20 lb. weight loss recommende d over the next 2 months. Solitary n odule of lung [id number] R91.1 Had 03/27/2020 : CTA Abdomen + Pevis ; 10 No acute findings in the abdomen or pelvis 20 Mild ventral abdominal diastasis along a ventral incision line with protrusion of multiple underlying small bowel loops ,No bowel obstructio n 3) 7 mm ground glass nodule in the lingula inchanged since 04/05/2017 Through favoured to benign follow up CT in 2 years is recommende d to complete 5 year follow up for stability Continue oncology f/u, with repeat CT imaging pending 01/2021 with oncologist . He had recent chest CT per oncologist . Carotid ar ted stenosis [id number] I65.29 Mild. Obtained carotid U/S 11/02/18: < 15% B ICA. Obtained carotid U/S 01/12/21: < 50% B ICA. Had US, carotid artery 01/04/2022 : Antegrade flow noted in both vertebral arteries. Very mild bilateral internal carotid artery stenosis with less than 15% diameter stenosis. Began ASA 81 mg qd 01/31/21. Needs to keep LDL less than 70, and HDL more than 40. Obtain repeat carotid U/S 01/2023. Obstructiv e sleep apnea syndrome [id number] G47.33 Reports snoring and PND. Reports people have told him his breathing is interrupte d when he sleeps. Reports daytime somnolence and fatigue. Had normal sleep study per patient report 5 years ago. Obtained home sleep study 03/08/21: very severe, non-positi onal ENEDINA. Had ( 2) ECHO: LV chamber size is normal. There is normal global systolic function and contractil ity. The estimated left ventricle ejection fraction is 55-60% (normal). Normal RVSP. Begin CPAP. He is still awaiting CPAP due to delay over recalls and device availabili ty, with CPAP coming in 03/2022. Dyspnea on exertion 6084 5006 R06.09 Patient presents with exertional dyspnea which can be an anginal equivalent . Given the history, exam findings and {{high int ermediate* low}} cardiac risk factors, I {{feel* do not feel}} additional investigat ion is warranted. I have made arrangemen ts in the near future for {{an exercise stress echocardio gram to evaluate for any ischemia, structural heart disease, or exercise induced arrythmia an exercise stress nuclear test an exercise stress nuclear test (stress echo not possible due to COPD or obesity)* an exercise stress nuclear test and an echocardio gram to evaluate for any ischemia or structural heart disease a pharmacolo gic stress nuclear test due to reduced functional capacity or conduction abnormalit y cardiac catheteriz ation an echocardio gram to evaluate left ventricula r function and any structural heart disease or valvular abnormalit y}}. His insurance denied his stress test. The procedure was discussed with the patient, and risks, benefits, and alternativ e options were explained. {{ The patient was informed about heart catheteriz ation and interventi onal procedures and agrees to proceed.}} Appropriat e labwork {{has* has not}} been performed recently, therefore I {{have not* have} } made arrangemen ts for further testing. I have asked the patient to curtail exercise and activities until our investigat ion is complete. I have {{made no made the following* }} adjustment s to the present medical regimen. {{ Patient has been started on daily aspirin.}} {{ Patient has been given a prescripti on for sublingual nitroglyce rin.}} Had ( 2) ECHO: LV chamber size is normal. There is normal global systolic function and contractil ity. The estimated left ventricle ejection fraction is 55-60% (normal). Normal RVSP. [id number] MD Dominik Bautista Office [address] [place] [address] 03/28/2022 12:10:07 03/28/2022 12:31:31 Syncope [id number] R55 No recurrence except single episode of probable cough syncope 06/2020. Previously , had unwitnesse d syncope while walking and a subsequent pre-syncop al episode while seated. Subsequent ly, he was changed per PCP from metoprolol ER 50 mg qd to lisinopril . Had 11/02/18 Exercise nuclear: Negative stress test for ischemia. Normal LV systolic function. Artifact noted. No previous study to compare. Submaximal exercise stress test. The sensitivit y of the test is limited by the inability to achieve target heart rate. LVEF 50%. Had ( 2) ECHO: LV chamber size is normal. There is normal global systolic function and contractil ity. The estimated left ventricle ejection fraction is 55-60% (normal). Normal RVSP. Had echo 11/02/18: LV chamber size is normal. LV wall thickness is normal. There is normal global systolic function and contractil ity. The estimated left ventricle ejection fraction is 55-60%(nor mal). E to A mitral inflow reversal is consistent with possible diastolic dysfunctio n. Left atrium chamber is mildly dilated. There is trivial aortic regurgitat ion. There is mild thickening of mitral valve anterior leaflet. There is trace tricuspid regurgitat ion. Obtained 24 hour Holter 11/09/18: unremarkab le. Obtained BMP (normal), Mg 2.6 (high), TSH (0.195 low), 3 weeks after increase in lisinopril to 10 mg 10/09/18. Obtained FT4 11/27/18: 1.02 normal. He saw neurologis t for EEG. Obtained carotid U/S 11/02/18: < 15% B ICA. Obtained carotid U/S 01/12/21: < 50% B ICA.. Had US, carotid artery 01/04/2022 : Antegrade flow noted in both vertebral arteries. Very mild bilateral internal carotid artery stenosis with less than 15% diameter stenosis. Electrocar diogram abnormal [id number] R94.31 Had EKG 09/29/2018 Sinus Rhythm-Fir st degree A-V block, inferolate ral ST elevation, abnormal. {{ Patient has been given a prescripti on for sublingual nitroglyce rin.}} Essential hypertension [id number] I10 Patient's blood pressure is {{well-con trolled* s omewhat well-contr olled not well-contr olled}} on present medical therapy. Patient is {{tolerati ng, without difficulty ,* having side effects with}} the current medication s. I have {{not made* made the following} } changes to the current regimen. {{ Patient is advised to maintain a blood pressure diary.*}} Patient was advised to eat a low-sodium diet (2 grams sodium or less daily). Reports home BP elevated, with PCP increasing patient to Lisinopril 10 mg qd 10/09/18. Began amlodipine 5 mg qd 10/13/18. Had 01/10/21: K 4.4, Mg 2.0, Cr 0.9, gluc 100, TSH 0.78, TG 306, HDL 30, LDL 66. Had 11/20/21: NA 137 K 5.0 CH 103 Co2 27 BUN 21 CR 1.10 GL 93 Mag 2.1 TP 7.4 AP 44 ALT 20 AST 16, normal TSH11/20/21 WBC 10.3 RBC 4.70 Plat 338 HCT 44.2 HGB 14.3 Reduced potassium salt substitute . Obtained 01/11/2022 BMP-GL 100 BUN 25 K 4.2 CR 1.0 NA 138 CA 9.1 MAG-2.2 Hyperlipidemia 19082382 E78.2 Had LIPID 10/29/2018: LDL 115. Has decreased dietary chol. and fat. Had 01/10/21: TG 306, HDL 30, LDL 66. Needs to keep LDL less than 70, and HDL more than 40. Now on statin and fenofibrat e.Increase fish oil to 2 gm bid 01/31/21. Reduce sugary foods.Incr ease walking. Obtained 11/20/21 Chol 174 Trig 175 HDL 34 LDL 105 Increased to pravastati n 80 mg HS 12/12/21. Obtain FLP, CMP, Mg. Obesity [id number] E66.9 20 lb. weight loss recommende d over the next 2 months. Obstructiv e sleep apnea syndrome [id number] G47.33 Pt is on CPAP and is 100% compliant. Patient is benefiting with CPAP therapy and will continue nightly use. Dyspnea on exertion 6084 5006 R06.09 Patient presents with exertional dyspnea which can be an anginal equivalent . Given the history, exam findings and {{high int ermediate* low}} cardiac risk factors, I {{feel* do not feel}} additional investigat ion is warranted. I have made arrangemen ts in the near future for {{an exercise stress echocardio gram to evaluate for any ischemia, structural heart disease, or exercise induced arrythmia an exercise stress nuclear test an exercise stress nuclear test (stress echo not possible due to COPD or obesity)* an exercise stress nuclear test and an echocardio gram to evaluate for any ischemia or structural heart disease a pharmacolo gic stress nuclear test due to reduced functional capacity or conduction abnormalit y cardiac catheteriz ation an echocardio gram to evaluate left ventricula r function and any structural heart disease or valvular abnormalit y}}. His insurance denied his stress test. The procedure was discussed with the patient, and risks, benefits, and alternativ e options were explained. {{ The patient was informed about heart catheteriz ation and interventi onal procedures and agrees to proceed.}} Appropriat e labwork {{has* has not}} been performed recently, therefore I {{have not* have} } made arrangemen ts for further testing. I have asked the patient to curtail exercise and activities until our investigat ion is complete. I have {{made no made the following* }} adjustment s to the present medical regimen. {{ Patient has been started on daily aspirin.}} {{ Patient has been given a prescripti on for sublingual nitroglyce rin.}} Had ( 2) ECHO: LV chamber size is normal. There is normal global systolic function and contractil ity. The estimated left ventricle ejection fraction is 55-60% (normal). Normal RVSP. [id number] [facility] [address] [place] [address] 05/08/2022 12:04:55 05/08/2022 13:38:24 Obstructive sleep apnea syndrome [id number] G47.33 Pt is on CPAP and is 100% compliant. Patient is benefiting with CPAP therapy and will continue nightly use. Syncope [id number] R55 No recurrence except single episode of probable cough syncope 06/2020. Previously , had unwitnesse d syncope while walking and a subsequent pre-syncop al episode while seated. Subsequent ly, he was changed per PCP from metoprolol ER 50 mg qd to lisinopril . Had 11/02/18 Exercise nuclear: Negative stress test for ischemia. Normal LV systolic function. Artifact noted. No previous study to compare. Submaximal exercise stress test. The sensitivit y of the test is limited by the inability to achieve target heart rate. LVEF 50%. Had ( 2) ECHO: LV chamber size is normal. There is normal global systolic function and contractil ity. The estimated left ventricle ejection fraction is 55-60% (normal). Normal RVSP. Had echo 11/02/18: LV chamber size is normal. LV wall thickness is normal. There is normal global systolic function and contractil ity. The estimated left ventricle ejection fraction is 55-60%(nor mal). E to A mitral inflow reversal is consistent with possible diastolic dysfunctio n. Left atrium chamber is mildly dilated. There is trivial aortic regurgitat ion. There is mild thickening of mitral valve anterior leaflet. There is trace tricuspid regurgitat ion. Obtained 24 hour Holter 11/09/18: unremarkab le. Obtained BMP (normal), Mg 2.6 (high), TSH (0.195 low), 3 weeks after increase in lisinopril to 10 mg 10/09/18. Obtained FT4 11/27/18: 1.02 normal. He saw neurologis t for EEG. Obtained carotid U/S 11/02/18: < 15% B ICA. Obtained carotid U/S 01/12/21: < 50% B ICA.. Had US, carotid artery 01/04/2022 : Antegrade flow noted in both vertebral arteries. Very mild bilateral internal carotid artery stenosis with less than 15% diameter stenosis. Electrocar diogram abnormal [id number] R94.31 Had EKG 09/29/2018 Sinus Rhythm-Fir st degree A-V block, inferolate ral ST elevation, abnormal. {{ Patient has been given a prescripti on for sublingual nitroglyce rin.}} Essential hypertension [id number] I10 Patient's blood pressure is {{well-con trolled* s omewhat well-contr olled not well-contr olled}} on present medical therapy. Patient is {{tolerati ng, without difficulty ,* having side effects with}} the current medication s. I have {{not made* made the following} } changes to the current regimen. {{ Patient is advised to maintain a blood pressure diary.*}} Patient was advised to eat a low-sodium diet (2 grams sodium or less daily). Reports home BP elevated, with PCP increasing patient to Lisinopril 10 mg qd 10/09/18. Began amlodipine 5 mg qd 10/13/18. Had 01/10/21: K 4.4, Mg 2.0, Cr 0.9, gluc 100, TSH 0.78, TG 306, HDL 30, LDL 66. Had 11/20/21: NA 137 K 5.0 CH 103 Co2 27 BUN 21 CR 1.10 GL 93 Mag 2.1 TP 7.4 AP 44 ALT 20 AST 16, normal TSH11/20/21 WBC 10.3 RBC 4.70 Plat 338 HCT 44.2 HGB 14.3 Reduced potassium salt substitute . Obtained 01/11/2022 BMP-GL 100 BUN 25 K 4.2 CR 1.0 NA 138 CA 9.1 MAG-2.2 Hyperlipidemia [id number] E78.2 Had LIPID 10/29/2018: LDL 115. Has decreased dietary chol. and fat. Had 01/10/21: TG 306, HDL 30, LDL 66. Needs to keep LDL less than 70, and HDL more than 40. Now on statin and fenofibrat e.Increase fish oil to 2 gm bid 01/31/21. Reduce sugary foods.Incr ease walking. Obtained 11/20/21 Chol 174 Trig 175 HDL 34 LDL 105 Increased to pravastati n 80 mg HS 12/12/21. Stopped fenofibrat e 10/26/22 to avoid toxicity while on statin. LDL was 47 done on 02/28/22.P t takes pravastati n 80 mg.CBC-WBC 8.5 HGB 14.2 HCT 41.2 PLT 317CMP-GL 101 CR 0.9 NA 139 K 4.0 CA 9.1LIPID-C HOL 85 TRIG 101 HDL 18 LDL 47MAG-2.2T SH-0.64T4- 0.98 Obtain CMP, Mg, TSH, CBC, FLP. Obesity 634996806 E66.9 20 lb. weight loss recommende d over the next 2 months. Dyspnea on exertion 6084 5006 R06.09 Patient presents with exertional dyspnea which can be an anginal equivalent . Given the history, exam findings and {{high int ermediate* low}} cardiac risk factors, I {{feel* do not feel}} additional investigat ion is warranted. I have made arrangemen ts in the near future for {{an exercise stress echocardio gram to evaluate for any ischemia, structural heart disease, or exercise induced arrythmia an exercise stress nuclear test an exercise stress nuclear test (stress echo not possible due to COPD or obesity)* an exercise stress nuclear test and an echocardio gram to evaluate for any ischemia or structural heart disease a pharmacolo gic stress nuclear test due to reduced functional capacity or conduction abnormalit y cardiac catheteriz ation an echocardio gram to evaluate left ventricula r function and any structural heart disease or valvular abnormalit y}}. His insurance denied his stress test. The procedure was discussed with the patient, and risks, benefits, and alternativ e options were explained. {{ The patient was informed about heart catheteriz ation and interventi onal procedures and agrees to proceed.}} Appropriat e labwork {{has* has not}} been performed recently, therefore I {{have not* have} } made arrangemen ts for further testing. I have asked the patient to curtail exercise and activities until our investigat ion is complete. I have {{made no made the following* }} adjustment s to the present medical regimen. {{ Patient has been started on daily aspirin.}} {{ Patient has been given a prescripti on for sublingual nitroglyce rin.}} Had ( 2) ECHO: LV chamber size is normal. There is normal global systolic function and contractil ity. The estimated left ventricle ejection fraction is 55-60% (normal). Normal RVSP. [id number] MD Dominik Bautista e Office [address] [place] [address] 06/27/2022 12:13:42 06/27/2022 13:03:24 Sleep disorder 85447766 G47.9 Pt is on CPAP and is 90% compliant. Patient is benefiting with CPAP therapy and will continue nightly use. [id number] MD Dominik Bautista e Office [address] [place] [address] 09/26/2022 12:15:19 09/26/2022 13:10:13 Sleep disorder 09890570 G47.9 Pt is on CPAP and is 90% compliant. Patient is benefiting with CPAP therapy and will continue nightly use. [address] [facility] [address] [place] [address] 11/28/2022 16:07:19 11/28/2022 17:27:44 Obstructive sleep apnea syndrome 34483774 G47.33 Pt is on CPAP and is 100% compliant. Patient is benefiting with CPAP therapy and will continue nightly use. Syncope [id number] R55 No recurrence except single episode of probable cough syncope 06/2020. Previously , had unwitnesse d syncope while walking and a subsequent pre-syncop al episode while seated. Subsequent ly, he was changed per PCP from metoprolol ER 50 mg qd to lisinopril . Had 11/02/18 Exercise nuclear: Negative stress test for ischemia.N ormal LV systolic function. Artifact noted. No previous study to compare.Barrios bmaximal exercise stress test. The sensitivit y of the test is limited by the inability to achieve target heart rate. LVEF 50%. Had ( 2) ECHO: LV chamber size is normal. There is normal global systolic function and contractil ity. The estimated left ventricle ejection fraction is 55-60% (normal). Normal RVSP. Had echo 11/02/18: LV chamber size is normal. LV wall thickness is normal. There is normal global systolic function and contractil ity. The estimated left ventricle ejection fraction is 55-60%(nor mal). E to A mitral inflow reversal is consistent with possible diastolic dysfunctio n. Left atrium chamber is mildly dilated. There is trivial aortic regurgitat ion. There is mild thickening of mitral valve anterior leaflet. There is trace tricuspid regurgitat ion. Obtained 24 hour Holter 11/09/18: unremarkab le. Obtained BMP (normal), Mg 2.6 (high), TSH (0.195 low), 3 weeks after increase in lisinopril to 10 mg 10/09/18. Obtained FT4 11/27/18: 1.02 normal. He saw neurologis t for EEG. Obtained carotid U/S 11/02/18: < 15% B ICA. Obtained carotid U/S 01/12/21: < 50% B ICA.. Had US, carotid artery 01/04/2022 : Antegrade flow noted in both vertebral arteries. Very mild bilateral internal carotid artery stenosis with less than 15% diameter stenosis. Electrocar diogram abnormal [id number] R94.31 Had EKG 09/29/2018 Sinus Rhythm-Fir st degree A-V block, inferolate ral ST elevation, abnormal. {{ Patient has been given a prescripti on for sublingual nitroglyce rin.}} Essential hypertension 40124595 I10 Patient's blood pressure is {{well-con trolled* s omewhat well-contr olled not well-contr olled}} on present medical therapy. Patient is {{tolerati ng, without difficulty ,* having side effects with}} the current medication s. I have {{not made* made the following} } changes to the current regimen. {{ Patient is advised to maintain a blood pressure diary.*}} Patient was advised to eat a low-sodium diet (2 grams sodium or less daily). Reports home BP elevated, with PCP increasing patient to Lisinopril 10 mg qd 10/09/18. Began amlodipine 5 mg qd 10/13/18. Had 01/10/21: K 4.4, Mg 2.0, Cr 0.9, gluc 100, TSH 0.78, TG 306, HDL 30, LDL 66. Had 11/20/21: NA 137 K 5.0 CH 103 Co2 27 BUN 21 CR 1.10 GL 93 Mag 2.1 TP 7.4 AP 44 ALT 20 AST 16, normal TSH11/20/21 WBC 10.3 RBC 4.70 Plat 338 HCT 44.2 HGB 14.3 Reduced potassium salt substitute . Obtained 01/11/2022 BMP-GL 100 BUN 25 K 4.2 CR 1.0 NA 138 CA 9.1 MAG-2.2 Hyperlipidemia 20060852 E78.2 Had LIPID 10/29/2018: LDL 115. Has decreased dietary chol. and fat. Had 01/10/21: TG 306, HDL 30, LDL 66. Needs to keep LDL less than 70, and HDL more than 40. Now on statin and fenofibrat e.Increase fish oil to 2 gm bid 01/31/21. Reduce sugary foods.Incr ease walking. Obtained 11/20/21 Chol 174 Trig 175 HDL 34 LDL 105 Increased to pravastati n 80 mg HS 12/12/21. Stopped fenofibrat e 05/08/22 to avoid toxicity while on statin. LDL was 47 done on 02/28/22.P t takes pravastati n 80 mg.CBC-WBC 8.5 HGB 14.2 HCT 41.2 PLT 317CMP-GL 101 CR 0.9 NA 139 K 4.0 CA 9.1LIPID-C HOL 85 TRIG 101 HDL 18 LDL 47MAG-2.2T SH-0.64T4- 0.98 Obtain CMP, Mg, TSH, CBC, FLP. Obesity 982566264 E66.9 20 lb. weight loss recommende d over the next 2 months. Dyspnea on exertion 6084 5006 R06.09 Patient presents with exertional dyspnea which can be an anginal equivalent . Given the history, exam findings and {{high int ermediate* low}} cardiac risk factors, I {{feel* do not feel}} additional investigat ion is warranted. I have made arrangemen ts in the near future for {{an exercise stress echocardio gram to evaluate for any ischemia, structural heart disease, or exercise induced arrythmia an exercise stress nuclear test an exercise stress nuclear test (stress echo not possible due to COPD or obesity)* an exercise stress nuclear test and an echocardio gram to evaluate for any ischemia or structural heart disease a pharmacolo gic stress nuclear test due to reduced functional capacity or conduction abnormalit y cardiac catheteriz ation an echocardio gram to evaluate left ventricula r function and any structural heart disease or valvular abnormalit y}}. His insurance denied his stress test, but he may hernia surgery 02/11/23, so needs stress testing likely with [facility]. The procedure was discussed with the patient, and risks, benefits, and alternativ e options were explained. {{ The patient was informed about heart catheteriz ation and interventi onal procedures and agrees to proceed.}} Appropriat e labwork {{has* has not}} been performed recently, therefore I {{have not* have} } made arrangemen ts for further testing. I have asked the patient to curtail exercise and activities until our investigat ion is complete. I have {{made no made the following* }} adjustment s to the present medical regimen. {{ Patient has been started on daily aspirin.}} {{ Patient has been given a prescripti on for sublingual nitroglyce rin.}} Had () ECHO: LV chamber size is normal. There is normal global systolic function and contractil ity. The estimated left ventricle ejection fraction is 55-60% (normal). Normal RVSP. Health Concerns Section Related Observation LastModified by Organization Detai ls LastModified Time None Recorded Concern Status LastModified by Organization Details LastModified Time None Recorded Advance Directives Directive N: Payers Encounter Date Sequence Insurance Name Policy Number Policy Burrows Covered Member ID Burrows Member ID Guarantor Name 03/28/2022 1 [facility] ON OR AFTER 01/11/21 (MEDICAID REPLACEMENT - HMO) Evan Ambrosio [id number] Evan Ambrosio 05/08/2022 1 [facility] ON OR AFTER 01/11/21 (MEDICAID REPLACEMENT - HMO) Evan Ambrosio [id number] Evan Ambrosio 06/27/2022 1 [facility] ON OR AFTER 01/11/21 (MEDICAID REPLACEMENT - HMO) Evan Ambrosio [id number] Evan Ambrosio 09/26/2022 1 [facility] ON OR AFTER 01/11/21 (MEDICAID REPLACEMENT - HMO) Evan Ambrosio [id number] Evan Ambrosio 11/28/2022 1 [facility] ON OR AFTER 01/11/21 (MEDICAID REPLACEMENT - HMO) Evan Ambrosio [id number] Evan Ambrosio Notes Date Note Type Note Provider Name and Address Organization Details Recorded Time 03/28/2022 text/html 03/28/2022C : C [facility]di[facility] follow up, dyspnea on year old man with the history of syncope, carotid artery stenosis, hypertension, hyperlipidemia, obesity, severe ENEDINA (awaiting CPAP), cervical spine osteoarthritis, frozen left shoulder joint, neuropathy, restless leg syndrome, s/p partial colectomy for ruptured diverticulum, anemia, thrombocytopenia (prior evaluation by hematology, normalized), and hepatitis C is here for follow up with labs results. He was last seen in the clinic on 02/13/22, since then Pt is on CPAP and is 100% compliant. Patient is benefiting with CPAP therapy and will continue nightly use. Denies chest pain.Denies shortness of breath at rest. Has mild dyspnea on exertion.No orthopnea. No PNDs.Denies heart palpitations.Denies dizziness. Denies syncope or near syncope.No ankle or leg edema.No major bleeding events.No reported side effects from medications. Taking medications as prescribed with no missed doses.Denies snoring, daytime somnolence and AM headache.*Last LDL was 47 done on 02/28/22.Pt takes pravastatin 80 mg. CBC-WBC 8.5 HGB 14.2 HCT 41.2 PLT 317CMP-GL 101 CR 0.9 NA 139 K 4.0 CA 9.1LIPID-CHOL 85 TRIG 101 HDL 18 LDL 47MAG-2.2TSH-0.64T4-0. 98 Had US, carotid artery 01/04/2022: Antegrade flow noted in both vertebral arteries. Very mild bilateral internal carotid artery stenosis with less than 15% diameter stenosis. Obtained carotid U/S 01/12/21: < 50% B ICA. Had (11/21/2021) ECHO: LV chamber size is normal. There is normal global systolic function and contractility. The estimated left ventricle ejection fraction is 55-60% (normal). Normal RVSP. Had echo 11/02/18: LV chamber size is normal. LV wall thickness is normal. There is normal global systolic function and contractility. The estimated left ventricle ejection fraction is 55-60%(normal). E to A mitral inflow reversal is consistent with possible diastolic dysfunction. Left atrium chamber is mildly dilated. There is trivial aortic regurgitation. There is mild thickening of mitral valve anterior leaflet. There is trace tricuspid regurgitation. RVSP 21 mmHg. Had 11/02/18 Exercise nuclear: Negative stress test for ischemia. Normal LV systolic function. Artifact noted. No previous study to compare. Results from this visit, or from the past:CBC w/ diff [id number]-[id number] 8.5 HGB 14.2 HCT 41.2 PLT 317 CMP-GL 101 CR 0.9 NA 139 K 4.0 CA 9.1 LIPID-CHOL 85 TRIG 101 HDL 18 LDL 47 MAG-2.2 TSH-0.64 T4-0.98 01/11/2022 BMP-GL 100 BUN 25 CR 1.0 NA 138 CA 9.1 MAG-2.2 11/20/21 NA 137 K 5.0 CH 103 Co2 27 BUN 21 CR 1.10 GL 93 Mag 2.1 TP 7.4 AP 44 ALT 20 AST 165 WBC 10.3 RBC 4.70 Plat 338 HCT 44.2 HGB 14.35 Chol 174 Trig 175 HFL 34 LDL 105 01/10/21: K 4.4, Mg 2.0, Cr 0.9, gluc 100, TSH 0.78, TG 306, HDL 30, LDL 66.03/27/2020 ; WBC 8.8,RBC 5.00,HGB 15.0,HCT 44.9,PLT 3719 ; Na 138,K 3.8,Cl 105,Co2 23,Glucose 136,BUN 16,Creati 0.8,Ca 9.3,AST 16,ALT 21,Alkaline phosphatase : NA 140 ,K 4.1, CL 106, CO2 29.3 ,GLU 100, BUN 22, CR 0.86,11/27/18: FREE T4 1.7428-05-9065 Mag 2.6B MP 10/29/2018 GL 105 BUN 13 CR 0.95 NA 139 K 3.6 CH 105 CO2 28.9LIPID 10/29/2018 CH 177 TR 140 HDL 34 LDL 115CMP 10/06/2018 GL 100 BUN 12 CR 0.88 NA 139 K 3.8 CH 106 CO2 29.6 AST 14 ALT 18CBC 10/06/2018 WBC 5.8 RBC 4.92 HGB 14.1 HCT 43.1PLT 327CMP 08/30/2018 NA 139 K 4.4 CH 102 CO2 28 GL 105 BUN 9 CR 1.1 AST 13 ALT 15CBC 08/30/2018 WBC 6.8 RBC 4.92 HGB 14.8 HCT 44.1 PLT 319Had 08/18/18: LDL 99. sleep study [id number] are consistent with very severe, non-positional obstructive sleep apnea. 11/29/20 EKG sinus rhythm first degree AV block (limited). P normal QRS normal ST-T normal conclusion EKG without significant abnormalities.EKG Normal sinus rhythm WNL rm 05/20/19EKG 11/13/18 possibly early repolarizationEKG 09/29/2018 Sinus rhythm- first degree AV block. Inferolateral ST elevation- possible repolarization variant-consider injury.EKG 08/30/2018 Sinus rhythm with 1st degree AV block. ST elevation, consider early repolarization. 11/07/21 Findings are consistent with very severe, non-positional obstructive sleep apnea. holter monitor [id number] sinus rhythm. Sinus tachycardia. Sinus bradycardia. Sinus arrhythmia. Symptom correlates with sinus rhythm. No PVC's and PAC's noted. Had 11/02/18 Exercise nuclear: Negative stress test for ischemia. 11/02/18/ myocardial stress/ normal LV function no reversible defects defects as described above no EKG changes to suggest ischemia average exercise tolerance Had (11/21/2021) ECHO: LV chamber size is normal. There is normal global systolic function and contractility. The estimated left ventricle ejection fraction is 55-60% (normal). Normal RVSP. Had echo 11/02/18: LV chamber size is normal. LV wall thickness is normal. There is normal global systolic function and contractility. The estimated left ventricle ejection fraction is 55-60%(normal). E to A mitral inflow reversal is consistent with possible diastolic dysfunction. Left atrium chamber is mildly dilated. There is trivial aortic regurgitation. There is mild thickening of mitral valve anterior leaflet. There is trace tricuspid regurgitation. 03/27/2020 : CTA Abdomen + Pevis ; 10 No acute findings in the abdomen or pelvis 20 Mild ventral abdominal diastasis along a ventral incision line with protrusion of multiple underlying small bowel loops ,No bowel obstruction 3) 7 mm ground glass nodule in the lingula inchanged since 04/05/2017 Through favoured to benign follow up CT in 2 years is recommened to complete 5 year follow up for stability XR, Chest 08/12/2018 No acute cardiopulmonary Carotid(01/04/2022nte grade flow noted in both vertebral arteries. Very mild bilateral internal carotid artery stenosis with less than 15% diameter stenosis. {{Complete ROS negative except as stated in the HPI. Complete ROS negative except as stated in the HPI and ROS.*}} Bucky Campbell MD [address] [place], [address], [facility] 03/28/2022 12:23:49 05/08/2022 text/html 05/08/2022 CC : Cardiac follow up, dyspnea on exertion 57 year old man with the history of syncope, carotid artery stenosis, hypertension, hyperlipidemia, obesity, severe ENEDINA (on CPAP), cervical spine osteoarthritis, frozen left shoulder joint, neuropathy, restless leg syndrome, s/p partial colectomy for ruptured diverticulum, anemia, thrombocytopenia (prior evaluation by hematology, normalized), hepatitis C (undergoing treatment 05/2022), is here for follow up with labs results. He was last seen in the clinic on 03/28/22 for sleep clinic, since then pt is on CPAP and is 100% compliant. Patient is benefiting with CPAP therapy and will continue nightly use. Denies chest pain.Denies shortness of breath at rest. Has mild dyspnea on exertion, improved.No orthopnea. No PNDs.Denies heart palpitations.Denies dizziness. Denies syncope or near syncope.No ankle or leg edema.No major bleeding events.No reported side effects from medications. Taking medications as prescribed with no missed doses.Denies snoring, daytime somnolence and AM headache. LDL was 47 done on 02/28/22.Pt takes pravastatin 80 mg.CBC-WBC 8.5 HGB 14.2 HCT 41.2 PLT 317CMP-GL 101 CR 0.9 NA 139 K 4.0 CA 9.1LIPID-CHOL 85 TRIG 101 HDL 18 LDL 47MAG-2.2TSH-0.64T4-0. 98 Had US, carotid artery 01/04/2022: Antegrade flow noted in both vertebral arteries. Very mild bilateral internal carotid artery stenosis with less than 15% diameter stenosis. Obtained carotid U/S 01/12/21: < 50% B ICA. Had (11/21/2021) ECHO: LV chamber size is normal. There is normal global systolic function and contractility. The estimated left ventricle ejection fraction is 55-60% (normal). Normal RVSP. Had echo 11/02/18: LV chamber size is normal. LV wall thickness is normal. There is normal global systolic function and contractility. The estimated left ventricle ejection fraction is 55-60%(normal). E to A mitral inflow reversal is consistent with possible diastolic dysfunction. Left atrium chamber is mildly dilated. There is trivial aortic regurgitation. There is mild thickening of mitral valve anterior leaflet. There is trace tricuspid regurgitation. RVSP 21 mmHg. Had 11/02/18 Exercise nuclear: Negative stress test for ischemia. Normal LV systolic function. Artifact noted. No previous study to compare. Results from this visit, or from the past: CBC w/ diff [id number] 8.5 HGB 14.2 HCT 41.2 PLT 317 CMP-GL 101 CR 0.9 NA 139 K 4.0 CA 9.1 LIPID-CHOL 85 TRIG 101 HDL 18 LDL 47 MAG-2.2 TSH-0.64 T4-0.98 01/11/2022 BMP-GL 100 BUN 25 CR 1.0 NA 138 CA 9.1 MAG-2.2 11/20/21 NA 137 K 5.0 CH 103 Co2 27 BUN 21 CR 1.10 GL 93 Mag 2.1 TP 7.4 AP 44 ALT 20 AST 165 WBC 10.3 RBC 4.70 Plat 338 HCT 44.2 HGB 14.35 Chol 174 Trig 175 HFL 34 LDL 105 01/10/21: K 4.4, Mg 2.0, Cr 0.9, gluc 100, TSH 0.78, TG 306, HDL 30, LDL 66.03/27/2020 ; WBC 8.8,RBC 5.00,HGB 15.0,HCT 44.9,PLT 3719 ; Na 138,K 3.8,Cl 105,Co2 23,Glucose 136,BUN 16,Creati 0.8,Ca 9.3,AST 16,ALT 21,Alkaline phosphatase : NA 140 ,K 4.1, CL 106, CO2 29.3 ,GLU 100, BUN 22, CR 0.86,11/27/18: FREE T4 1.6200-13-7179 Mag 2.6B MP 10/29/2018 GL 105 BUN 13 CR 0.95 NA 139 K 3.6 CH 105 CO2 28.9LIPID 10/29/2018 CH 177 TR 140 HDL 34 LDL 115CMP 10/06/2018 GL 100 BUN 12 CR 0.88 NA 139 K 3.8 CH 106 CO2 29.6 AST 14 ALT 18CBC 10/06/2018 WBC 5.8 RBC 4.92 HGB 14.1 HCT 43.1PLT 327CMP 08/30/2018 NA 139 K 4.4 CH 102 CO2 28 GL 105 BUN 9 CR 1.1 AST 13 ALT 15CBC 08/30/2018 WBC 6.8 RBC 4.92 HGB 14.8 HCT 44.1 PLT 319Had 08/18/18: LDL 99. sleep study [id number] are consistent with very severe, non-positional obstructive sleep apnea. 11/29/20 EKG sinus rhythm first degree AV block (limited). P normal QRS normal ST-T normal conclusion EKG without significant abnormalities.EKG Normal sinus rhythm WNL rm 05/20/19EKG 11/13/18 possibly early repolarizationEKG 09/29/2018 Sinus rhythm- first degree AV block. Inferolateral ST elevation- possible repolarization variant-consider injury.EKG 08/30/2018 Sinus rhythm with 1st degree AV block. ST elevation, consider early repolarization. 11/07/21 Findings are consistent with very severe, non-positional obstructive sleep apnea. holter monitor [id number] sinus rhythm. Sinus tachycardia. Sinus bradycardia. Sinus arrhythmia. Symptom correlates with sinus rhythm. No PVC's and PAC's noted. Had 11/02/18 Exercise nuclear: Negative stress test for ischemia. 11/02/18/ myocardial stress/ normal LV function no reversible defects defects as described above no EKG changes to suggest ischemia average exercise tolerance Had (11/21/2021) ECHO: LV chamber size is normal. There is normal global systolic function and contractility. The estimated left ventricle ejection fraction is 55-60% (normal). Normal RVSP. Had echo 11/02/18: LV chamber size is normal. LV wall thickness is normal. There is normal global systolic function and contractility. The estimated left ventricle ejection fraction is 55-60%(normal). E to A mitral inflow reversal is consistent with possible diastolic dysfunction. Left atrium chamber is mildly dilated. There is trivial aortic regurgitation. There is mild thickening of mitral valve anterior leaflet. There is trace tricuspid regurgitation. 03/27/2020 : CTA Abdomen + Pevis ; 10 No acute findings in the abdomen or pelvis 20 Mild ventral abdominal diastasis along a ventral incision line with protrusion of multiple underlying small bowel loops ,No bowel obstruction 3) 7 mm ground glass nodule in the lingula inchanged since 04/05/2017 Through favoured to benign follow up CT in 2 years is recommened to complete 5 year follow up for stability XR, Chest 08/12/2018 No acute cardiopulmonary Carotid(01/04/2022nte grade flow noted in both vertebral arteries. Very mild bilateral internal carotid artery stenosis with less than 15% diameter stenosis. {{Complete ROS negative except as stated in the HPI. Complete ROS negative except as stated in the HPI and ROS.*}} William Devine [place], [place] - [facility] 05/08/2022 13:34:35 06/27/2022 text/html 06/27/2022 CC : Cardiac follow up, dyspnea on exertion 57 year old man with the history of syncope, carotid artery stenosis, hypertension, hyperlipidemia, obesity, severe ENEDINA (on CPAP), cervical spine osteoarthritis, frozen left shoulder joint, neuropathy, restless leg syndrome, s/p partial colectomy for ruptured diverticulum, anemia, thrombocytopenia (prior evaluation by hematology, normalized), hepatitis C (undergoing treatment 05/2022), is here for follow up with labs results. He was last seen in the clinic on 03/28/22 for sleep clinic, since then pt is on CPAP and is 90% compliant. Patient is benefiting with CPAP therapy and will continue nightly use. Denies chest pain.Denies shortness of breath at rest. Has mild dyspnea on exertion, improved.No orthopnea. No PNDs.Denies heart palpitations.Denies dizziness. Denies syncope or near syncope.No ankle or leg edema.No major bleeding events.No reported side effects from medications. Taking medications as prescribed with no missed doses.Denies snoring, daytime somnolence and AM headache. LDL was 47 done on 02/28/22.Pt takes pravastatin 80 mg.CBC-WBC 8.5 HGB 14.2 HCT 41.2 PLT 317CMP-GL 101 CR 0.9 NA 139 K 4.0 CA 9.1LIPID-CHOL 85 TRIG 101 HDL 18 LDL 47MAG-2.2TSH-0.64T4-0. 98 Had US, carotid artery 01/04/2022: Antegrade flow noted in both vertebral arteries. Very mild bilateral internal carotid artery stenosis with less than 15% diameter stenosis. Obtained carotid U/S 01/12/21: < 50% B ICA. Had (11/21/2021) ECHO: LV chamber size is normal. There is normal global systolic function and contractility. The estimated left ventricle ejection fraction is 55-60% (normal). Normal RVSP. Had echo 11/02/18: LV chamber size is normal. LV wall thickness is normal. There is normal global systolic function and contractility. The estimated left ventricle ejection fraction is 55-60%(normal). E to A mitral inflow reversal is consistent with possible diastolic dysfunction. Left atrium chamber is mildly dilated. There is trivial aortic regurgitation. There is mild thickening of mitral valve anterior leaflet. There is trace tricuspid regurgitation. RVSP 21 mmHg. Had 11/02/18 Exercise nuclear: Negative stress test for ischemia. Normal LV systolic function. Artifact noted. No previous study to compare. Results from this visit, or from the past: CBC w/ diff [id number] 8.5 HGB 14.2 HCT 41.2 PLT 317 CMP-GL 101 CR 0.9 NA 139 K 4.0 CA 9.1 LIPID-CHOL 85 TRIG 101 HDL 18 LDL 47 MAG-2.2 TSH-0.64 T4-0.98 01/11/2022 BMP-GL 100 BUN 25 CR 1.0 NA 138 CA 9.1 MAG-2.2 11/20/21 NA 137 K 5.0 CH 103 Co2 27 BUN 21 CR 1.10 GL 93 Mag 2.1 TP 7.4 AP 44 ALT 20 AST 165 WBC 10.3 RBC 4.70 Plat 338 HCT 44.2 HGB 14.35 Chol 174 Trig 175 HFL 34 LDL 105 01/10/21: K 4.4, Mg 2.0, Cr 0.9, gluc 100, TSH 0.78, TG 306, HDL 30, LDL 66.03/27/2020 ; WBC 8.8,RBC 5.00,HGB 15.0,HCT 44.9,PLT 3719 ; Na 138,K 3.8,Cl 105,Co2 23,Glucose 136,BUN 16,Creati 0.8,Ca 9.3,AST 16,ALT 21,Alkaline phosphatase : NA 140 ,K 4.1, CL 106, CO2 29.3 ,GLU 100, BUN 22, CR 0.86,11/27/18: FREE T4 1.2930-20-1794 Mag 2.6B MP 10/29/2018 GL 105 BUN 13 CR 0.95 NA 139 K 3.6 CH 105 CO2 28.9LIPID 10/29/2018 CH 177 TR 140 HDL 34 LDL 115CMP 10/06/2018 GL 100 BUN 12 CR 0.88 NA 139 K 3.8 CH 106 CO2 29.6 AST 14 ALT 18CBC 10/06/2018 WBC 5.8 RBC 4.92 HGB 14.1 HCT 43.1PLT 327CMP 08/30/2018 NA 139 K 4.4 CH 102 CO2 28 GL 105 BUN 9 CR 1.1 AST 13 ALT 15CBC 08/30/2018 WBC 6.8 RBC 4.92 HGB 14.8 HCT 44.1 PLT 319Had 08/18/18: LDL 99. sleep study [id number] are consistent with very severe, non-positional obstructive sleep apnea. 11/29/20 EKG sinus rhythm first degree AV block (limited). P normal QRS normal ST-T normal conclusion EKG without significant abnormalities.EKG Normal sinus rhythm WNL rm 05/20/19EKG 11/13/18 possibly early repolarizationEKG 09/29/2018 Sinus rhythm- first degree AV block. Inferolateral ST elevation- possible repolarization variant-consider injury.EKG 08/30/2018 Sinus rhythm with 1st degree AV block. ST elevation, consider early repolarization. 11/07/21 Findings are consistent with very severe, non-positional obstructive sleep apnea. holter monitor [id number] sinus rhythm. Sinus tachycardia. Sinus bradycardia. Sinus arrhythmia. Symptom correlates with sinus rhythm. No PVC's and PAC's noted. Had 11/02/18 Exercise nuclear: Negative stress test for ischemia. 11/02/18/ myocardial stress/ normal LV function no reversible defects defects as described above no EKG changes to suggest ischemia average exercise tolerance Had (11/21/2021) ECHO: LV chamber size is normal. There is normal global systolic function and contractility. The estimated left ventricle ejection fraction is 55-60% (normal). Normal RVSP. Had echo 11/02/18: LV chamber size is normal. LV wall thickness is normal. There is normal global systolic function and contractility. The estimated left ventricle ejection fraction is 55-60%(normal). E to A mitral inflow reversal is consistent with possible diastolic dysfunction. Left atrium chamber is mildly dilated. There is trivial aortic regurgitation. There is mild thickening of mitral valve anterior leaflet. There is trace tricuspid regurgitation. 03/27/2020 : CTA Abdomen + Pevis ; 10 No acute findings in the abdomen or pelvis 20 Mild ventral abdominal diastasis along a ventral incision line with protrusion of multiple underlying small bowel loops ,No bowel obstruction 3) 7 mm ground glass nodule in the lingula inchanged since 04/05/2017 Through favoured to benign follow up CT in 2 years is recommened to complete 5 year follow up for stability XR, Chest 08/12/2018 No acute cardiopulmonary Carotid(2Ante grade flow noted in both vertebral arteries. Very mild bilateral internal carotid artery stenosis with less than 15% diameter stenosis. {{Complete ROS negative except as stated in the HPI. Complete ROS negative except as stated in the HPI and ROS.*}} Bucky Campbell MD [address] [place], [address], [facility] 06/27/2022 12:43:40 09/26/2022 text/html CC : Cardiac follow up, dyspnea on exertion 57 year old man with the history of syncope, carotid artery stenosis, hypertension, hyperlipidemia, obesity, severe ENEDINA (on CPAP), is here for cardiac follow up He was last seen in the clinic on 06/27/22 for sleep clinic, since then pt is on CPAP and is 90% compliant. Patient is benefiting with CPAP therapy and will continue nightly use. Denies chest pain.Denies shortness of breath at rest. Has mild dyspnea on exertion, improved.No orthopnea. No PNDs.Denies heart palpitations.Denies dizziness. Denies syncope or near syncope.No ankle or leg edema.No major bleeding events.No reported side effects from medications. Taking medications as prescribed with no missed doses.Denies snoring, daytime somnolence and AM headache. LDL was 47 done on 02/28/22.Pt takes pravastatin 80 mg.CBC-WBC 8.5 HGB 14.2 HCT 41.2 PLT 317CMP-GL 101 CR 0.9 NA 139 K 4.0 CA 9.1LIPID-CHOL 85 TRIG 101 HDL 18 LDL 47MAG-2.2TSH-0.64T4-0. 98 Had US, carotid artery 01/04/2022: Antegrade flow noted in both vertebral arteries. Very mild bilateral internal carotid artery stenosis with less than 15% diameter stenosis. Obtained carotid U/S 01/12/21: < 50% B ICA. Had (11/21/2021) ECHO: LV chamber size is normal. There is normal global systolic function and contractility. The estimated left ventricle ejection fraction is 55-60% (normal). Normal RVSP. Had echo 11/02/18: LV chamber size is normal. LV wall thickness is normal. There is normal global systolic function and contractility. The estimated left ventricle ejection fraction is 55-60%(normal). E to A mitral inflow reversal is consistent with possible diastolic dysfunction. Left atrium chamber is mildly dilated. There is trivial aortic regurgitation. There is mild thickening of mitral valve anterior leaflet. There is trace tricuspid regurgitation. RVSP 21 mmHg. Had 11/02/18 Exercise nuclear: Negative stress test for ischemia. Normal LV systolic function. Artifact noted. No previous study to compare. Results from this visit, or from the past: CBC w/ diff [id number] 8.5 HGB 14.2 HCT 41.2 PLT 317 CMP-GL 101 CR 0.9 NA 139 K 4.0 CA 9.1 LIPID-CHOL 85 TRIG 101 HDL 18 LDL 47 MAG-2.2 TSH-0.64 T4-0.98 01/11/2022 BMP-GL 100 BUN 25 CR 1.0 NA 138 CA 9.1 MAG-2.2 11/20/21 NA 137 K 5.0 CH 103 Co2 27 BUN 21 CR 1.10 GL 93 Mag 2.1 TP 7.4 AP 44 ALT 20 AST 165 WBC 10.3 RBC 4.70 Plat 338 HCT 44.2 HGB 14.35 Chol 174 Trig 175 HFL 34 LDL 105 01/10/21: K 4.4, Mg 2.0, Cr 0.9, gluc 100, TSH 0.78, TG 306, HDL 30, LDL 66.03/27/2020 ; WBC 8.8,RBC 5.00,HGB 15.0,HCT 44.9,PLT 3719 ; Na 138,K 3.8,Cl 105,Co2 23,Glucose 136,BUN 16,Creati 0.8,Ca 9.3,AST 16,ALT 21,Alkaline phosphatase : NA 140 ,K 4.1, CL 106, CO2 29.3 ,GLU 100, BUN 22, CR 0.86,11/27/18: FREE T4 1.5795-44-8495 Mag 2.6B MP 10/29/2018 GL 105 BUN 13 CR 0.95 NA 139 K 3.6 CH 105 CO2 28.9LIPID 10/29/2018 CH 177 TR 140 HDL 34 LDL 115CMP 10/06/2018 GL 100 BUN 12 CR 0.88 NA 139 K 3.8 CH 106 CO2 29.6 AST 14 ALT 18CBC 10/06/2018 WBC 5.8 RBC 4.92 HGB 14.1 HCT 43.1PLT 327CMP 08/30/2018 NA 139 K 4.4 CH 102 CO2 28 GL 105 BUN 9 CR 1.1 AST 13 ALT 15CBC 08/30/2018 WBC 6.8 RBC 4.92 HGB 14.8 HCT 44.1 PLT 319Had 08/18/18: LDL 99. sleep study [id number] are consistent with very severe, non-positional obstructive sleep apnea. 11/29/20 EKG sinus rhythm first degree AV block (limited). P normal QRS normal ST-T normal conclusion EKG without significant abnormalities.EKG Normal sinus rhythm WNL rm 05/20/19EKG 11/13/18 possibly early repolarizationEKG 09/29/2018 Sinus rhythm- first degree AV block. Inferolateral ST elevation- possible repolarization variant-consider injury.EKG 08/30/2018 Sinus rhythm with 1st degree AV block. ST elevation, consider early repolarization. 11/07/21 Findings are consistent with very severe, non-positional obstructive sleep apnea. holter monitor [id number] sinus rhythm. Sinus tachycardia. Sinus bradycardia. Sinus arrhythmia. Symptom correlates with sinus rhythm. No PVC's and PAC's noted. Had 11/02/18 Exercise nuclear: Negative stress test for ischemia. 11/02/18/ myocardial stress/ normal LV function no reversible defects defects as described above no EKG changes to suggest ischemia average exercise tolerance Had (11/21/2021) ECHO: LV chamber size is normal. There is normal global systolic function and contractility. The estimated left ventricle ejection fraction is 55-60% (normal). Normal RVSP. Had echo 11/02/18: LV chamber size is normal. LV wall thickness is normal. There is normal global systolic function and contractility. The estimated left ventricle ejection fraction is 55-60%(normal). E to A mitral inflow reversal is consistent with possible diastolic dysfunction. Left atrium chamber is mildly dilated. There is trivial aortic regurgitation. There is mild thickening of mitral valve anterior leaflet. There is trace tricuspid regurgitation. 03/27/2020 : CTA Abdomen + Pevis ; 10 No acute findings in the abdomen or pelvis 20 Mild ventral abdominal diastasis along a ventral incision line with protrusion of multiple underlying small bowel loops ,No bowel obstruction 3) 7 mm ground glass nodule in the lingula inchanged since 04/05/2017 Through favoured to benign follow up CT in 2 years is recommened to complete 5 year follow up for stability XR, Chest 08/12/2018 No acute cardiopulmonary Carotid(2Ante grade flow noted in both vertebral arteries. Very mild bilateral internal carotid artery stenosis with less than 15% diameter stenosis. {{Complete ROS negative except as stated in the HPI. Complete ROS negative except as stated in the HPI and ROS.*}} Bucky Campbell MD [address] [place], [address], [facility] 09/26/2022 13:08:35 11/28/2022 text/html 11/28/22 CC: Cardiac follow up, dyspnea on exertion 57 year-old man with the history of syncope, carotid artery stenosis, hypertension, hyperlipidemia, obesity, severe ENEDINA (on CPAP), is here for cardiac follow up He was last seen in the clinic on 09/26/22 for sleep clinic, since then pt is on CPAP and is 90% compliant. Patient is benefiting with CPAP therapy and will continue nightly use. His insurance denied his stress test, but he may hernia surgery 02/11/23, so needs stress testing likely with [facility] given exertional dyspnea which can be an anginal equivalent. Denies chest pain.Denies shortness of breath at rest. Has mild dyspnea on exertion, improved.No orthopnea. No PNDs.Denies heart palpitations.Denies dizziness. Denies syncope or near syncope.No ankle or leg edema.No major bleeding events.No reported side effects from medications. Taking medications as prescribed with no missed doses.Denies snoring, daytime somnolence and AM headache. LDL was 47 done on 02/28/22.Pt takes pravastatin 80 mg.CBC-WBC 8.5 HGB 14.2 HCT 41.2 PLT 317CMP-GL 101 CR 0.9 NA 139 K 4.0 CA 9.1LIPID-CHOL 85 TRIG 101 HDL 18 LDL 47MAG-2.2TSH-0.64T4-0. 98 Had US, carotid artery 01/04/2022: Antegrade flow noted in both vertebral arteries. Very mild bilateral internal carotid artery stenosis with less than 15% diameter stenosis. Obtained carotid U/S 01/12/21: < 50% B ICA. Had (11/21/2021) ECHO: LV chamber size is normal. There is normal global systolic function and contractility. The estimated left ventricle ejection fraction is 55-60% (normal). Normal RVSP. Had echo 11/02/18: LV chamber size is normal. LV wall thickness is normal. There is normal global systolic function and contractility. The estimated left ventricle ejection fraction is 55-60%(normal). E to A mitral inflow reversal is consistent with possible diastolic dysfunction. Left atrium chamber is mildly dilated. There is trivial aortic regurgitation. There is mild thickening of mitral valve anterior leaflet. There is trace tricuspid regurgitation. RVSP 21 mmHg. Had 11/02/18 Exercise nuclear: Negative stress test for ischemia. Normal LV systolic function. Artifact noted. No previous study to compare. Results from this visit, or from the past: CBC w/ diff [id number]-WBC 8.5 HGB 14.2 HCT 41.2 PLT 317 CMP-GL 101 CR 0.9 NA 139 K 4.0 CA 9.1 LIPID-CHOL 85 TRIG 101 HDL 18 LDL 47 MAG-2.2 TSH-0.64 T4-0.98 01/11/2022 BMP-GL 100 BUN 25 CR 1.0 NA 138 CA 9.1 MAG-2.2 11/20/21 NA 137 K 5.0 CH 103 Co2 27 BUN 21 CR 1.10 GL 93 Mag 2.1 TP 7.4 AP 44 ALT 20 AST 165 WBC 10.3 RBC 4.70 Plat 338 HCT 44.2 HGB 14.35 Chol 174 Trig 175 HFL 34 LDL 105 01/10/21: K 4.4, Mg 2.0, Cr 0.9, gluc 100, TSH 0.78, TG 306, HDL 30, LDL 66.03/27/2020 ; WBC 8.8,RBC 5.00,HGB 15.0,HCT 44.9,PLT 3719 ; Na 138,K 3.8,Cl 105,Co2 23,Glucose 136,BUN 16,Creati 0.8,Ca 9.3,AST 16,ALT 21,Alkaline phosphatase : NA 140 ,K 4.1, CL 106, CO2 29.3 ,GLU 100, BUN 22, CR 0.86,11/27/18: FREE T4 1.1233-12-9415 Mag 2.6B MP 10/29/2018 GL 105 BUN 13 CR 0.95 NA 139 K 3.6 CH 105 CO2 28.9LIPID 10/29/2018 CH 177 TR 140 HDL 34 LDL 115CMP 10/06/2018 GL 100 BUN 12 CR 0.88 NA 139 K 3.8 CH 106 CO2 29.6 AST 14 ALT 18CBC 10/06/2018 WBC 5.8 RBC 4.92 HGB 14.1 HCT 43.1PLT 327CMP 08/30/2018 NA 139 K 4.4 CH 102 CO2 28 GL 105 BUN 9 CR 1.1 AST 13 ALT 15CBC 08/30/2018 WBC 6.8 RBC 4.92 HGB 14.8 HCT 44.1 PLT 319Had 08/18/18: LDL 99. sleep study [id number] are consistent with very severe, non-positional obstructive sleep apnea. 11/29/20 EKG sinus rhythm first degree AV block (limited). P normal QRS normal ST-T normal conclusion EKG without significant abnormalities.EKG Normal sinus rhythm WNL rm 05/20/19EKG 11/13/18 possibly early repolarizationEKG 09/29/2018 Sinus rhythm- first degree AV block. Inferolateral ST elevation- possible repolarization variant-consider injury.EKG 08/30/2018 Sinus rhythm with 1st degree AV block. ST elevation, consider early repolarization. 11/07/21 Findings are consistent with very severe, non-positional obstructive sleep apnea. holter monitor [id number] sinus rhythm. Sinus tachycardia. Sinus bradycardia. Sinus arrhythmia. Symptom correlates with sinus rhythm. No PVC's and PAC's noted. Had 11/02/18 Exercise nuclear: Negative stress test for ischemia. 11/02/18/ myocardial stress/ normal LV function no reversible defects defects as described above no EKG changes to suggest ischemia average exercise tolerance Had (11/21/2021) ECHO: LV chamber size is normal. There is normal global systolic function and contractility. The estimated left ventricle ejection fraction is 55-60% (normal). Normal RVSP. Had echo 11/02/18: LV chamber size is normal. LV wall thickness is normal. There is normal global systolic function and contractility. The estimated left ventricle ejection fraction is 55-60%(normal). E to A mitral inflow reversal is consistent with possible diastolic dysfunction. Left atrium chamber is mildly dilated. There is trivial aortic regurgitation. There is mild thickening of mitral valve anterior leaflet. There is trace tricuspid regurgitation. 03/27/2020 : CTA Abdomen + Pevis ; 10 No acute findings in the abdomen or pelvis 20 Mild ventral abdominal diastasis along a ventral incision line with protrusion of multiple underlying small bowel loops ,No bowel obstruction 3) 7 mm ground glass nodule in the lingula inchanged since 04/05/2017 Through favoured to benign follow up CT in 2 years is recommened to complete 5 year follow up for stability XR, Chest 08/12/2018 No acute cardiopulmonary Carotid(2Ante grade flow noted in both vertebral arteries. Very mild bilateral internal carotid artery stenosis with less than 15% diameter stenosis. {{Complete ROS negative except as stated in the HPI. Complete ROS negative except as stated in the HPI and ROS.*}} William lambert, [place] - [facility] 11/28/2022 17:26:47
--- OUTSIDE RECORDS SUMMARY | 2024-10-09 09:01 | XMS_ITS | Clinical Summary ---
Author Organization [facility] Address [address] [place] [address] Care Team Providers Care Administrator Name Role Phone Brian Bryson MD Primary Care Provider [phone] Source Comments [facility],non-owned Affiliates and Associated Physician Practices is amultiple site organization consisting of ambulatory clinics and hospital sitesin [place], [place], [place] and [place]. This disclosure is being madepursuant to the Care Everywhere program and may not contain all information available regarding this patient. Last updated 18.[facility] Allergies Active Allergy Reactions Criticality Noted Date Comments Cilazapril Skin Reactions 04/17/2017 Diaphoresis. Ciprofloxacin Other 11/13/2017 Cold sweats, dizzy. Medications * Be aware that medications may not be up to date on this document. Alwaysverify current medications with the patient. Medication Sig Dispensed Refills Start Date End Date Status amLODIPine (NORVASC) 5 MG tablet Take 5 mg by mouth once daily Active Elastic Bandages & Supports (ABDOMINAL BINDER/ELASTIC LARGE) MISCIndications: Incisional hernia of anterior abdominal wall without obstruction or gangrene Use 1 Units continuous Please fit and dispense custom abdominal binder. 1 Each 2 03/18/2019 Active tiZANidine (ZANAFLEX) 2 MG tablet Take 2 mg by mouth every 8 hours 1 05/19/2019 Active gabapentin (NEURONTIN) 600 MG tablet 900 mg 09/06/2019 Active losartan (COZAAR) 50 MG tablet Take 50 mg by mouth once daily 03/23/2020 Active Multiple Vitamins-Mineral s (MULTIVITAMIN ADULT PO) Active omeprazole (PRILOSEC) 40 MG capsule omeprazole 40 mg capsule,delayed release TAKE 1 CAPSULE BY MOUTH TWICE A DAY FOR BEFORE MEALS 10/17/2020 Active solifenacin (VESICARE) 10 MG tablet Take 1 (one) tablet by mouth once daily 90 tablet 4 02/06/2021 Active Additional Information Patient not taking.Reported on 04/26/2022 vitamin D, ergocalciferol, (DRISDOL) 1.25 MG (83403 UT) capsule TAKE 1 CAPSULE BY MOUTH ONE TIME PER WEEK 02/11/2021 Active Langtry-3 Fatty Acids (KP FISH OIL) 1200 MG Take 2 capsules by mouth 2 times daily Active pantoprazole EC (PROTONIX) 40 MG tablet Take 40 mg by mouth 2 times daily Active aspirin EC (Ecotrin) 81 MG tablet aspirin 81 mg tablet,delayed release Active fenofibrate (Tricor) 145 MG tablet fenofibrate nanocrystallized 145 mg tablet TAKE 1 TABLET BY MOUTH EVERY DAY 08/24/2021 Active meloxicam (Mobic) 15 MG tablet meloxicam 15 mg tablet TAKE ONE TABLET BY MOUTH DAILY NEEDED 03/06/2022 Active finasteride (Proscar) 5 MG tabletIndication s:Lower urinary tract symptoms (LUTS) Take 1 (one) tablet by mouth once daily 90 tablet 4 06/18/2023 Active ferrous sulfate 325 (65 FE) MG tablet Take 1 (one) tablet by mouth once daily 90 tablet 10/06/2024 Active ferrous sulfate 325 (65 FE) MG tablet Take 325 mg by mouth once daily 02/06/2021 10/07/19 25 Discontinu ed(Reorder ) Active Problems Problem Noted Date Diagnosed Date Rheumatoid factor positive 08/01/2021 Assessment & Plan (08/01/2021 3:06 PM ORTHO NURSE): Suspect low positive rheumatoid factor is related to chronic periodontal disease and gingivitis. The finding of a positive rheumatoid factor of undetermined clinical significance (with low pre-test probability for rheumatoid arthritis) without current history, examination findings, and/or additional available laboratory results for review, regarding this finding being consistent with the specific diagnosis of rheumatoid arthritis by [place] [employer] classification criteria nor seems [...] should be considered in clinically indicated cases. Generalized osteoarthritis of multiple sites Left hip pain 08/01/2021 Overview (08/01/2021): Due to moderately advanced degenerative osteoarthritis. Follow up with orthopedic surgeon. 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 18 Small bowel anastomotic stricture 01/01/2018 Anemia of unknown etiology 04/17/2017 Thrombocythemia 04/17/2017 Acute diverticulitis of intestine 04/20/2016 Atypical chest pain 07/01/2015 Encounters Date Type Department Care Team Description 10/06/2024 Orders Only [facility] - [facility] [address] [place] [address] Amairani Cm RN 09/28/2024 Refill [facility] [address] [place] [id number] Raymundo Ochoa MD Refill Request from Last 3 Months Family History Medical History Relation Name Comments Alzheimer's Disease Father Parkinson's Disease Father Stroke Father Cancer Maternal Grandmother Cancer Mother Cancer - Liver Paternal Grandfather Diabetes - Type 2 Paternal Grandfather Relation Name Status Comments Father Maternal Grandmother Mother Alive Paternal Grandfather Social History Tobacco Use Types Packs/Day Years [...] Sign Reading Time Taken Comments Blood Pressure 133/81 04/26/2022 11:35 AM CDT Pulse 66 04/26/2022 11:35 AM CDT Temperature 36.9 C (98.4 F) 04/26/2022 11:35 AM CDT Respiratory Rate 16 08/01/2021 2:49 PM ORTHO NURSE Oxygen Saturation 97% 04/26/2022 11: 35 AM CDT Inhaled Oxygen Concentration - - Weight 117.4 kg (258 lb 12.8 oz) 2021 11:35 AM CDT Height 182.9 cm (6') 04/26/2022 11:35 AM CDT Body Mass Index 35.1 04/26/2022 11:35 AM CDT Plan of Treatment Upcoming Encounters Date Type Department Care Team (Late st Contact Info) Description 10/19/2024 11:00 AM CDT Office Visit [facility] [address] [place] [address] Ney Baxter PA [address] [place] [id number] Health Maintenance Due Date Last Done Comments COLOGUARD (AGES 45-75) - COLON CA SCREENING [address] COLONOGRAPHY - COLON CA SCREENING 1964 FIT - COLON CA SCREENING 1965 FLEX SIG - COLON CA SCREENING 1964 HIB VACCINE (1 of 1 - Risk 1-dose series) 06/29/1965 MENINGOCOCCAL GROUPS A/C/Y/W VACCINE (1 - Risk 2-dose series) 1966 MENINGOCOCCAL (Group B) VACCINE SHARED DECISION-MAKING (1 of 5 - Increased Risk) 1974 HIV SCREENING 1979 HEPATITIS C SCREENING 03/26/1982 DTAP/TDAP/TD VACCINES (1 - Tdap) 1983 PNEUMOCOCCAL VACCINE 50+ (1 of 2 - PCV) 1983 ZOSTER VACCINE (1 of 2) 2014 SCREENING FOR DIABETES 02/02/2021 8, 02/01/2018, 01/31/2018, Additional history exists COVID-19 VACCINE (2023- season) 2024 INFLUENZA VACCINE (#1) 2024 DEPRESSION SCREENING 07/14/2024 LIPID TESTING 03/01/2027 03/01/2022, 10/12, 04/17/2016, Additional history exists COLONOSCOPY - COLON CA SCREENING 10/03/2027 10/02/2017 (Done Outside Per Report) Colorectal Cancer Screening 10/03/2027 Respiratory Syncytial Virus (RSV) Vaccine Pt: or over 60 yrs (1 - 1-dose 75+ series) 2039 HEPATITIS B VACCINE Aged Out No longe r eligible based on patient's age to complete this topic HPV VACCINE Aged Out No longer eligi ble based on patient's age to complete this topic Procedures Procedure Name Priority Date/Time Associated Diagnosis Comments BASIC METABOLIC PANEL (CALCIUM TOTAL) AM Draw 02/02/2018 2:34 AM CDT Small bowel anastomotic stricture LIPID PROFILE Routine 04/17/2016 5:02 PM CDT Routine check-up from Last 3 Months or Most Recently Relevant to Health Maintenance Results * (ABNORMAL) BASIC METABOLIC PANEL (CALCIUM TOTAL) (02/02/2018 2:34 AM CDT) BUN 9 7 - 26 mg/dL 02/02/2018 3:09 AM [facility] Creatinine 0.9 0.6 - 1.2 mg/dL 02/02/2018 3:09 AM [facility] Sodium 136 136 - 145 mmol/L 02/02/2018 3:09 AM [facility] Potassium 4.1 3.5 - 4.5 mmol/L 02/02/2018 3:09 AM [facility] Chloride 98 98 - 107 mmol/L 02/02/2018 3:09 AM [facility] CO2 26 22 - 29 mmol/L 02/02/2018 3:09 AM [facility] Glucose 122(H) 70 - 115 mg/dL 02/02/2018 3:09 AM [facility] Calcium 8.9 8.4 - 10.2 mg/dL 02/02/2018 3:09 AM CDT [facility] Anion Gap 16 8 - 18 02/02/2018 3:09 AM T [facility] BUN/Creatinine Ratio 10 7 - 23 02/02/2018 3:09 AM CDT [facility] Osmolality Calculated 282 270 - 300 mOsm/kg 02/02/2018 3:09 AM CDT [facility] eGFR >60 >60 mL/min/1.7 3 m2 02/02/2018 3:09 AM CDT [facility] Blood BLOOD SPECIMEN / Unknown Lab Venipuncture / Unknown 02/02/2018 2:34 AM CDT 02/02/2018 2:46 AM CDT Zoya Lamar MD LAB - CHEMISTRY KRYSTIN GAXIOLA [facility] [address] [phone] * LIPID PROFILE (04/17/2016 5:02 PM CDT) Pathologist [facility] Cholesterol 173 <200 mg/dL 04/17/2016 5:30 PM CDT [facility] Triglycerides 107 <150 mg/dL 04/17/2016 5:30 PM CDT [facility] HDL Cholesterol 42 >40 mg/dL 04/17/2016 5:30 PM CDT [facility] LDL Calculated 110 <130 mg/dL 04/17/2016 5:30 PM CDT [facility] VLDL Calculated 21 <=30 mg/dL 04/17/2016 5:30 PM CDT [facility] Chol HDL Ratio 4.1 <4.5 04/17/2016 5:30 PM CDT [facility] LDL/HDL Ratio 2.6 <5.0 04/17/2016 5:30 PM CDT [facility] Blood BLOOD SPECIMEN / Unknown Lab Venipuncture / Unknown 04/17/2016 5:02 PM CDT 04/17/2016 5:07 PM CDT Jose Eduardo Gonzalez MD LAB - CHEMISTRY KRYSTIN GAXIOLA [facility] [address] [place] [phone] from Last 3 Months or Most Recently Relevant to Health Maintenance Insurance Payer Benefit Plan / Group Subscriber ID Effective Dates Phone Address Type [facility] MEDICAID [id number] Effective for all dates [address] [place] [address] Medicaid Managed Care SELF PAY NO INSURANCE SELF PAY NO INSURANCE Effective for all dates [place] Self Pay [facility] MEDICAID [id number] Effective for all dates [address] [place] [address] Medicaid Managed Care SELF PAY NO INSURANCE SELF PAY NO INSURANCE Effective for all dates [place], [place] Self Pay [facility] MEDICAID [id number] Effective for all dates [address] [place] [address] Medicaid Managed Care SELF PAY NO INSURANCE SELF PAY NO INSURANCE Effective for all dates [place] Self Pay [facility] MEDICAID [id number] Effective for all dates [address] [place] [address] Medicaid Managed Care SELF PAY NO INSURANCE SELF PAY NO INSURANCE Effective for all dates . [facility] [place] Self [place] [facility] MEDICAID [id number] Effective for all dates [address] [place] [address] Medicaid Managed Care SELF PAY NO INSURANCE SELF PAY NO INSURANCE Effective for all dates [place], [place] Self Pay [facility] MEDICAID [id number] 07/14/2018-Pres ent ATTN CLAIMS DEPARTMENT [address] [place] [address] Medicaid Managed Care [facility] MEDICAID [id number] 09/04/2018-Pre sent [address] [place] [address] Medicaid Managed Care Advance Directives * Full Code (Latest Code Status on File) Date Activated Date Inactivated Comments 01/30/2018 2:45 PM 02/03/2018 3:47 PM * Full Code Date Activated Date Inactivated Comments 01/30/2018 8:27 AM 01/30/2018 2:45 PM * Full Code Date Activated Date Inactivated Comments 01/30/2018 8:21 AM 01/30/2018 8:27 AM * Full Code Date Activated Date Inactivated Comments 04/19/2016 1:54 PM 04/22/2016 3:12 PM * Full Code Date Activated Date Inactivated Comments 07/01/2015 5:09 PM 07/03/2015 3:30 PM Care Teams Administrator Relationship Specialty Start Date End Date Brian Bryson MD [address] [place] [address] [address] [place] [address] PCP - General 05/21/18
== END 2024-10-09 08:57 | disposition home or self-care (01) ==
PROVIDERS: PCP Emergency Medicine; Visit Provider Psychiatry & Neurology Neurology
DX: G25.81 Restless legs syndrome (principal); G62.9 Polyneuropathy, unspecified; M51.369 Other intervertebral disc degeneration, lumbar region without mention of lumbar back pain or lower extremity pain
CPT/HCPCS: 70030; 72148

== ENCOUNTER 2024-11-28 10:06 | Outpatient (CLI) | payer OTHER, SELFPAY ==
--- NOTE | ~2024-11-28 | MR_ITS ---
MRI of the cervical spine Clinical History: Radiculopathy Technique: Axial T2-weighted and gradient images, and sagittal T1-weighted, T2-weighted, and STIR josh ges were acquired. Findings: There is no fracture or subluxation of the cervical spine. Vertebral bodies maintain normal height and alignment. There is moderate degenerative changes at the articulation of the odontoid pro cess with the anterior arch of C1. No suspicious bone marrow signal reality seen. At C2-C3, there is no disc bulge or herniation. No spinal canal stenosis, cord compression, or neural foraminal narrowing. At C3-C4, there is mild disc osteophyte complex and mild facet arthropathy. There is probable mild bi lateral neural foraminal narrowing, right worse than left. No canal stenosis or cord compression. At C4-C5, there is minimal disc osteophyte complex. There is right neural foraminal narrowing. Left n eural foramen preserved. At C5-C6, there is moderate degenerative disc narrowing with minimal central disc osteophyte complex. No canal stenosis or cord compression. There is left neural foraminal narrowing. Right neural forame n probably minimally narrowed. At C6-C7, there is posterior disc bulge/protrusion. No canal stenosis or cord compression. Bilateral neural foramina are probably preserved. No abnormal signal seen in the spinal cord. Paravertebral soft tissues are unremarkable. Impression: Mild degenerative spondylosis overall, as detailed above. Reviewed, dictated and finalized at [facility]. Impression: Mild degenerative spondylosis overall, as detailed above.
--- OUTSIDE RECORDS SUMMARY | 2024-11-28 10:10 | XMS_ITS | Continuity of Care Document ---
Author Organization [facility] Address [address] [place] [address] [address] [place] [address] Phone Care Team Providers Care [facility] Cook Name Role Phone Kasia Gonzalez Unavailable Unavailable Advance Directives Directive Yes / No Effective Date File Name No Information Encounters Encounter Description Practice Location Reason(s) For Visit Diagnoses Date Provider Providers Copied on Encounter [facility], [address], [place], [place], [id number], [place] tel:[phone] No Information November-0 9-200 2 Lisa Pedroza. [address] , [address], [place], [address], [place]. tel:[phone] Family History Family Member Type Diagnosis Age [...]
--- OUTSIDE RECORDS SUMMARY | 2024-11-28 10:10 | XMS_ITS | Data Portability ---
Author Organization [place] - [facility] OFFICE Address [address] [place] [address] Care Team Providers Care Can Stacker Name Role Phone RUBY MAZARIEGOS Primary Care Provider [phone] Assessment Encounter Date Assessment Date Assessment LastModified by Organization Details LastModified Time 05/08/2022 05/08/2022 Discussed with patient findings, diagnosis, and prognosis. Discussed evaluation and treatment options including risks and benefits with patient, and patient expressed understanding. The following interventions were recommended: heart healthy low-fat, low-sodium diet, continue regular exercise, maintain appropriate weight, continue current medications, and medical follow-up as noted. [email or web address] Not available 05/08/2022 13:26:10 11/28/2022 11/28/2022 Discussed with patient findings, diagnosis, and prognosis. Discussed evaluation and treatment options including risks and benefits with patient, and patient expressed understanding. The following interventions were recommended: heart healthy low-fat, low-sodium diet, continue regular exercise, maintain appropriate weight, continue current medications, and medical follow-up as noted. [email or web address] Not available 11/28/2022 17:17:29 Plan of Treatment [...] By Organization Details Last Modified Time 06/27/2022 26499 Weight loss 20 pounds Exercise advised Low [...] iance * No observ ation record ed. [email or web address] Not Available 14:32:24 Result Notes Documentation Provider Name and Address Organization Details Recorded Time Lipid Panel, Blood : 12/26/22:Na 137,K 4.5,Cl 102,CO2 25,Glu 122,BUN 19,Cr 0.70,AST 15,ALT 13,TSH 0.81. 12/26/22:TC 144,TG 141,LDL 84,HDL 32. 12/26/22:WBC 12.9,RBC 4.86,Hgb 15.5,HCT 46.0,PLT 300. Lissa lambert [place] - [facility] 12/27/2022 10:29:54 Lipid Panel, Blood : 12/26/22:Na 137,K 4.5,Cl 102,CO2 25,Glu 122,BUN 0.70,Cr 0.70,AST 15,ALT 13,TSH 0.81. 12/26/22:TC 144,TG 141,LDL 84,HDL 32. 12/26/22:WBC 12.9,RBC 4.86,Hgb 15.5,HCT 46.0,PLT 300. Lissa lambert [place] - [facility] 12/27/2022 10:32:45 Problems Name Problem SNOMED Code Status Onset Date Resolution Date Notes Provider Name and Address Organization Details Recorded Time Obesity 419314225 Active 2020 William lambert [place] - [facility] 11:52:09 Nodule of lung 316029649 Active 2020 William lambert [place] [facility] 11:57:20 Solitary nodule of lung 766367326 Active 2020 Willaim lambert [place] - [facility] 11:57:54 Carotid artery stenosis 82482911 Active 2020 William lambert [place] - [facility] 12:59:21 Obstructive sleep apnea syndrome 73961137 Active 2020 William Devine [facility], [place] - [facility] 1 13:15:33 Dyspnea on exertion 44873855 Active 2021 [place] - [facility] 2 16:38:22 Essential hypertension 02185560 Active 2018 [facility] [place] - [facility] 9 12:35:33 Diverticulitis 507586100 Active 2018 [facility] [place] - [facility] 9 12:36:08 Peptic ulcer 41853309 Active 2018 [facility] [place] [facility] 9 12:36:29 Arthritis 9707662 Active 2018 [facility] [place] - [facility] 9 12:36:45 Syncope 304853263 Active 2018 William Devine [place], [place] - [facility] 9 13:14:24 Electrocardiog nando abnormal 018340887 Active 2018 William Devine [place] - [facility] 9 13:16:17 Hyperlipidemia 48903350 Active 2018 William Devine [place] - [facility] 9 13:34:17 Problem Notes None recorded. Procedures Surgical History Date Name Laterality Status Provider Name and Address Organization Details Recorded Time endoscopic laser surgery on colon completed [facility] 09/29/2018 12:39:48 operative procedure on knee completed [facility] 09/29/2018 12:40:14 splenectomy completed [facility] 09/29/2018 12:41:01 Imaging Results Imaging Date Name Status LastModified by Organiz ation Details LastModified Time 06/18/2022 sleep study, diagnostic (PROC) completed [email or web address] Information not available 07/01/2022 16:23:31 09/26/2022 CPAP compliance* completed [email or web address] Information not available 10/01/2022 14:32:24 Procedure Notes None recorded. Medical Equipment None Reported. Allergies Allergen ID Allergen Name Allergen Category Reaction Reaction Severity Criticality Documentation Date Start Date Code Code System Note Provider Name and Address Organization Details Recorded Time 7920 ciproflox acin medicatio n dizziness Not available Not available 09/29/2018 2551 RxNorm Deepika Pleitezewa [place] - [facility] 9 12:35:01 Medications [...] Vitamin B12 1 tablet once a day 05/22 completed [...] Updated DateTime 2 182.88 cm 32.7 kg/m2 282229. 76 g 79 /min 95 % 95 % 136 mm[Hg] 76 mm[Hg] Anuradha Rod [facility] 2 12:16:14 Date Recorded Body height Body mass index (BMI) Body weight Heart rate Respiratory rate Oxygen saturation Oxygen saturation in Arterial blood by Pulse oximetry Systolic blood pressure Diastolic blood pressure Provider Name and Address Organization Details Last Updated DateTime 2 182.88 cm 34 kg/m2 215588. 68 g 64 /min 16 /min 95 % 95 % 118 mm[Hg] 76 mm[Hg] Willi Rivera [facility] 2 12:36:13 Date Recorded Body height Body mass index (BMI) Body weight Heart rate Oxygen saturation Oxygen saturation in Arterial blood by Pulse oximetry Systolic blood pressure Diastolic blood pressure Provider Name and Address Organization Details Last Updated DateTime 2 182.88 cm 33.4 kg/m2 837116. 72 g 79 /min 96 % 96 % 126 mm[Hg] 72 mm[Hg] Anuradha Rod [facility] 2 12:38:05 Date Recorded Body height Body mass index (BMI) Body weight Heart rate Oxygen saturation Oxygen saturation in Arterial blood by Pulse oximetry Systolic blood pressure Diastolic blood pressure Provider Name and Address Organization Details Last Updated DateTime 3 182.88 cm 33.4 kg/m2 162406. 72 g 66 /min 95 % 95 % 134 mm[Hg] 92 mm[Hg] Whitney Baeza [facility] 3 12:53:06 Date Recorded Body height Body mass index (BMI) Body weight Heart rate Respiratory rate Oxygen saturation Oxygen saturation in Arterial blood by Pulse oximetry Systolic blood pressure Diastolic blood pressure Provider Name and Address Organization Details Last Updated DateTime 3 182.88 cm 33.4 kg/m2 736111. 72 g 72 /min 16 /min 95 % 95 % 124 mm[Hg] 78 mm[Hg] Willi Rivera [place] - [facility] 3 16:36:44 Social History Question Answer Notes LastModified by Organizat ion Details LastModified Time Tobacco Smoking Status Never Smoker Not Available [facility] 05/16/2020 03:30:41 Do You Have An Advance Directive? No [id number] Information not available 05/16/2020 What Is Your Level Of Caffeine Consumption? Moderate [id number] Information not available 05/16/2020 How Much Tobacco Do You Chew? None [id number] Information not available 05/16/2020 What Type Of Diet Are You Following? REGULAR [id number] Information not available 05/16/2020 Which Illicit Or Recreational Drugs Have You Used? Marijuana [id number] Information not available 05/16/2020 Live Alone Or With Others? With Others Sister In Law [place] [address] Information not available 09/29/2018 Marital Status [place] [address] Informatio n not available 09/29/2018 What Was The Date Of Your Most Recent Tobacco Screening? 01/12/2019 [id number] Information not available 05/16/2020 How Many Children Do You Have? 0 [id number] Information not available 05/16/2020 How Much Tobacco Do You Smoke? No Information not available 11/29/2020 General Stress Level Low [place] [address] Information not available 09/29/2018 How Many Years Have You Smoked Tobacco? 0 [id number] Information not available 05/16/2020 Sex: Unknown Functional Status Question Answer Note LastModified by Organizat ion Details LastModified Time What is your level of alcohol consumption? None [id number] Information not available 05/16/2020 Do you or have you ever used smokeless tobacco? Never used smokeless tobacco Information not available 11/29/2020 Do you or have you ever used e-cigarettes or vape? Never used electronic cigarettes Information not available 11/29/2020 What is your exercise level? None [id number] Information not available 05/16/2020 Mental Status None recorded. Family History Relationship Description Onset Age of this Age Resolved Age Notes LastModified by Organization Details LastModified Time Father No current problems or disability Diabet es [email or web address] Not available 09/29/2018 12:37:33 Mother No current problems or disability Diabet is,joyce ast cancer [email or web address] Not available 09/29/2018 12:38:02 Notes:father with CVAs No pr emature [place]. Medical History Condition Response Genitourinary Disease Y GERD/Reflux N Hypertension Y Past Encounters Encounter ID Performer Location Encounter Start Date Encounter Closed Date Diagnosis/Indication Diagnosis SNOMED-CT Code Diagnosis ICD10 Code Diagnosis Note [id number] MD Dominik Wilhelm Office [address] [place] [address] 09/29/2018 11:59:45 09/29/2018 13:48:59 Essential hypertension 47930897 I10 Patient's blood pressure is {{well-con trolled* [...] (2 grams sodium or less daily). Syncope 062135813 R55 Had unwitness syncope while walking and a subsequent pre-syncop al episode while seated. Obtain exercise nuclear stress test to exclude ischemia. Obtain echo to evaluate for structural /functiona l disease. Obtain 24 hour Holter. Obtain carotid U/S. Obtain CMP, Mg, TSH, FLP, CBC. Electrocar diogram abnormal 730737993 R94.31 Had EKG 09/29/[address] [...] a prescripti on for sublingual nitroglyce rin.}} [id number] MD Dominik Wilhelm Office [address] [place] [address] 10/13/2018 10:40:30 10/13/2018 12:17:00 Syncope 587411524 R55 Had unwitness syncope while walking and [...] to 10 mg 10/09/18. Electrocar diogram abnormal 874182684 R94.31 Had EKG 09/29/[address] [...] on for sublingual nitroglyce rin.}} Essential hypertension 52571428 I10 Patient's blood pressure is {{well-con trolled [...] weeks. Began amlodipine 5 mg qd 10/13/18. [id number] MD Dominik Wilhelm Office [address] [place] [address] 11/13/2018 11:31:14 11/13/2018 13:43:36 Syncope 064252796 R55 Had unwitnesse d syncope while walking [...] mg 10/09/18. Obtain FT4. Electrocar diogram abnormal 778797935 R94.31 Had EKG 09/29/[address] st degree A-V block, inferolate ral ST elevation, abnormal. {{ Patient has been given a prescripti on for sublingual nitroglyce rin.}} Essential hypertension 74075809 I10 Patient's blood pressure is {{well-con trolled* [...] Began amlodipine 5 mg qd 10/13/18. Hyperlipidemia 37619124 E78.2 Had LIPID 10/29/2018: LDL 115. Decrease dietary chol. and fat; repeat in 6 months. [id number] MD Dominik Wilhelm Office [address] [place] [address] 01/12/2019 11:55:16 01/12/2019 14:03:10 Syncope 256944159 R55 No recurrence . Had unwitnesse d [...] night, obtain BMP, Mg. Electrocar diogram abnormal 828794501 R94.31 Had EKG 09/29/[address] st degree A-V block, inferolate ral ST elevation, abnormal. {{ Patient has been given a prescripti on for sublingual nitroglyce rin.}} Essential hypertension 52615294 I10 Patient's blood pressure is {{well-con trolled* [...] Began amlodipine 5 mg qd 10/13/18. Hyperlipidemia 59046980 E78.2 Had LIPID 10/29/2018: LDL 115. Decrease dietary chol. and fat; repeat in 6 months. [id number] MD Dominik Wilhelm Office [address] [place] [address] 05/20/2019 14:03:10 05/20/2019 14:31:01 Syncope 477835755 R55 No recurrence . Had unwitnesse d [...] night, obtain BMP, Mg. Electrocar diogram abnormal 337202806 R94.31 Had EKG 09/29/[address]-Fir st degree A-V block, inferolate ral ST elevation, abnormal. {{ Patient has been given a prescripti on for sublingual nitroglyce rin.}} Essential hypertension 52667764 I10 Patient's blood pressure is {{well-con trolled* [...] Began amlodipine 5 mg qd 10/13/18. Hyperlipidemia 32681648 E78.2 Had LIPID 10/29/2018: LDL 115. Decrease dietary chol. and fat; repeat in 6 months. [id number] William Devine MD [place] OFF[facility] [address] [place] [address] 11/29/2020 11:10:01 11/29/2020 12:03:13 Syncope 403830639 R55 No recurrence except sin [id number]|2024-11-28 10:10:00|2024-11-28 10:10:00|XMS_ITS|BKG DAEMON|External Medical Summaries|[id number]|" Data Portability Created on: November 28, 2024 Anders Ambrosio .[id number] : 1965 Sex: Male Author Organization [facility], Main Office Address [address] [place] [address] Care Team Providers Care Can Stacker Name Role Phone RUBY MAZARIEGOS Primary Care Provider RUBY MAZARIEGOS Referring Provider [phone] Assessment No assessment recorded. Plan of Treatment Reminders Order Date Submit Date Provider Last Modified By Organization Details Last Modified Time Details Appointments None recorded. Lab hepatitis C virus RNA, quant, PCR, serum or plasma 2024 025 [facility] (Lab), [address] [place], [address], 08:09:03 Referral None recorded. Procedures None recorded. Surgeries None recorded. Imaging None recorded. Medication Orders None recorded. Patient TargetsNo targets recorded. Patient Instructions Encounter Date Encounter Id Patient Instructions Last Modified By Organization Details Last Modified Time 09/01/2024 [id number] PT WITH HX/O HEP C INFECTION . S/P TREATMENT WITH [facility] AND [facility]. WILL CHECK HCV-RNA TO R/O ACTIVE DZ THE ANTIBODY WILL ALWAYS BE POSITIVE . [email or web address] Not available 09/01/2024 15:53:07 Reason for Referral None Reported. Results Created Date Observation Date Name Description Value Unit Range Abnormal Flag Note LastModifiedBy Organization Detail LastModifiedTime 01/09/20 21 XR, foot No observ ation record ed. [id number] [email or web address] [place] [address], [place], [address], 09/11/2022 21:32:11 02/08/20 22 02/07/2022 XR, foot No observ ation record ed. [id number] [facility] [place] [address], [place], [address], 09/11/2022 21:32:11 Result Notes None recorded. 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 Procedures Surgical History Date Name Laterality Status Provider Name and Address Organization Details Recorded Time colostomy completed Not Available [facility] 0 09/11/2022 21:29:06 Appendectomy completed Not Available [facility] 09/11/2022 21:29:06 Knee Surgery completed Not Available [facility] 09/11/2022 21:29:06 procedure on spleen completed Not Available [facility] 09/11/2022 21:29:06 Colon Surgery completed Not Available [facility] 09/11/2022 21:29:06 Imaging Results Imaging Date Name Status LastModified by Organiz ation Details LastModified Time 01/08/2021 XR, foot completed [id number] [facility] [address], [place], [address], 09/11/2022 21:32:11 02/07/2022 XR, foot completed [id number] 26 [facility] [place] [address], [place], [address], 09/11/2022 21:32:11 Procedure Notes None recorded. Medical Equipment None Reported. Allergies Allergen ID Allergen Name Allergen Category Reaction Reaction Severity Criticality Documentation Date Start Date Code Code System Note Provider Name and Address Organization Details Recorded Time 92255 Cipro medicatio n Not available Not available Not available 09/11/202228552 3 RxNorm Not Available [facility] 21:32:02 Medications Name Sig Start Date [...] ferrous sulfate 325 mg (65 mg iron) tablet,janina yed release active Not Available Not [...] cm 96 % 96 % 95 /min 695273. 09 g 138 mm[Hg] 84 mm[Hg] Not Available [facility] 3 21:29:48 Date Recorded Body mass index (BMI) Body height Heart rate Body weight Systolic blood pressure Diastolic blood pressure Provider Name and Address Organization Details Last Updated DateTime 1 33.9 kg/m2 182.88 cm 80 /min 922107. 09 g 122 mm[Hg] 80 mm[Hg] Not Available [facility] 3 21:29:48 Date Recorded Body mass index (BMI) Body height Body weight Provider Name and Address Organization Details Last Updated DateTime 02/07/2022 33.9 kg/m2 182.88 cm 018334.09 g Not Available [facility] 09/11/2022 21:29:49 Date Recorded Body mass index (BMI) Body height Body weight Provider Name and Address Organization Details Last Updated DateTime 03/21/2022 33.9 kg/m2 182.88 cm 579244.09 g Not Available [facility] 09/11/2022 21:29:49 Date Recorded Body height Body mass index (BMI) Body weight Heart rate Oxygen saturation Oxygen saturation in Arterial blood by Pulse oximetry Systolic blood pressure Diastolic blood pressure Provider Name and Address Organization Details Last Updated DateTime 5 182.88 cm 31.9 kg/m2 054298. 21 g 73 /min 95 % 95 % 146 mm[Hg] 84 mm[Hg] CHEYENNE Chaudhari [place] [facility] [place] [employer] 5 14:25:00 Social History Question Answer Notes LastModified by Organizat ion Details LastModified Time Tobacco Smoking Status Never Smoker Not Available [facility] 09/11/2022 21:29:00 What Was The Date Of Your Most Recent Tobacco Screening? 11/01/2020 [id number] Information not available 09/11/2022 Sex: Unknown Functional Status None recorded. Mental Status None recorded. Family History Relationship Description Onset Age of this Age Resolved Age Notes LastModified by Organization Details LastModified Time Father Family history of stroke [id number] Not available 09/11/2022 21:29:07 Father Hypertensive disorder [id number] [id number] Not available 09/11/2022 21:29:07 Mother Family history of malignant neoplasm [email or web address].019 [id number] Not available 09/11/2022 21:29:07 Mother Diabetes mellitus [id number] [id number] Not available 09/11/2022 21:29:07 Medical History Condition [...] SNOMED-CT Code Diagnosis ICD10 Code Diagnosis Note [id number] [facility] [place] [address] [place] [address] 11/01/2020 00:00:00 11/01/2020 16:27:00 [id number] [facility] [place] [address] [place] [address] 01/08/2021 00:00:00 01/10/2021 08:24:54 [id number] [facility] [place] [address] [place] [address] 06/28/2021 00:00:00 06/28/2021 13:37:43 [id number] [facility] [place] [address] [place] [address] 02/07/2022 00:00:00 02/07/2022 13:24:39 [id number] [facility] [place] [address] [place] [address] 03/21/2022 00:00:00 03/21/2022 13:09:57 [id number] Krysta Christine MD [facility] General Surgery [address] [place] [address] 09/01/2024 14:16:27 09/01/2024 15:07:14 Chronic hepatitis C 130987237 B18.2 Health Concerns Section Related Observation LastModified by Organization Detai ls LastModified Time None Recorded Concern Status LastModified by Organization Details LastModified Time None Recorded Advance Directives Directive None Recorded Payers Encounter Date Sequence Insurance Name Policy Number Policy Burrows Covered Member ID Burrows Member ID Guarantor Name 09/01/2024 1 [facility] - DOS ON OR AFTER 21 (MEDICAID REPLACEMENT - HMO) Anders Ambrosio [id number] Anders Ambrosio Notes Date Note Type Note Provider Name and Address Organization Details Recorded Time 09/01/2024 text/html ANDERS WAS SEEN I N THE OFFICE TODAY FOR EVALUATION . PT REPORTS HX/O CHRONIC HEP C. HE IS S/P [facility] AND [facility] TREATMENT . PT REPORTS STOOL CHANGES . HE THINKS HEP C HAS RELAPSED . PT HAS GT1A, NS5a. Krysta Christine MD [address], [place], [address], [facility] [employer] 09/01/2024 15:53:24 "
--- OUTSIDE RECORDS SUMMARY | 2024-11-28 10:10 | XMS_ITS | Clinical Summary ---
Author Organization [facility] on Address [address] [place] [address] NENITA Baum [address] Phone Care Team Providers Care Refractory Furnace Designer Name Role Phone Brian Bryson MD Primary Care Provider [phone] Allergies Active Allergy Reactions Criticality Noted Date [...] Comments Blood Pressure 130/77 08/25/2023 10:40 AM [employer] Pulse 65 08/25/2023 10:40 AM [employer] Temperature - - Respiratory Rate 15 08/25/2023 10:4 0 AM [employer] Oxygen Saturation 95% 08/25/2023 10: 40 AM [employer] Inhaled Oxygen Concentration - - Weight 102.3 kg (225 lb 9.6 oz) 024 10:40 AM [employer] Height 182.9 cm (6') 08/25/2023 10:40 AM [employer] Body Mass Index 30.6 08/25/2023 10:40 AM [employer] Plan of Treatment Health Maintenance Due Date [...] to complete this topic Insurance Care Teams Refractory Furnace Designer Relationship Specialty Start Date End Date Brian Bryson MD [address] [place] [phone] PCP - General Family Practice 08/25/23
--- OUTSIDE RECORDS SUMMARY | 2024-11-28 10:10 | XMS_ITS | Encounter Summary ---
Author Organization [facility] Address [address] [facility] [place] [address] Care Team Providers Care Ethnoarchaeology Professor Name Role Phone Brian Bryson MD Primary Care Provider [phone] Reason for Visit * Reason Comments Refill Request Encounter Details Date Type Department Care Team (Late st Contact Info) Description 09/28/2024 Refill [facility] - Urology [address] [place] [address], [facility] [place] [phone] Raymundo Ochoa MD Refill Request Social History Tobacco Use Types Packs/Day Years Used Date Smoking Tobacco: Never Smokeless Tobacco: Never Alcohol Use Standard Drinks/Week Comments No 0 (1 standard drink = 0.6 oz pur e alcohol) Sex and Gender Information Value Date Recorded Sex Assigned at Not on file Legal Sex Male 12:41 PM CDT Gender Identity Not on file Sexual Orientation Not on file Occupation Industry Job Start Date Job End Date disabled Not on file Not on file Not on file documented as of this encounter Functional Status * Is person deaf or have serious hearing difficulty? Answer Date of Assessment Author No 02/03/2018 10:15 AM Sarahi White RN * Is person blind or have serious difficulty seeing? Answer Date of Assessment Author No 02/03/2018 10:15 AM Sarahi White RN * Does person have serious difficulty walking/climbing stairs? Answer Date of Assessment Author No 02/03/2018 10:15 AM Sarahi White RN * Does person have difficulty dressing/bathing? Answer Date of Assessment Author No 02/03/2018 10:15 AM CDT [place] , Sarahi, RN * Does person have difficulty doing errands alone? Answer Date of Assessment Author No 02/03/2018 10:15 AM [place] Sarahi Majano RN documented as of this encounter Mental Status * Does person have difficulty concentrating/remembering/making decisions? Answer Entry Date Author No 02/03/2018 10:15 AM Sarahi White RN documented in this encounter Plan of Treatment Upcoming Encounters Date Type Department Care Team (Late st Contact Info) Description 11/29/2024 11:30 AM CDT Office Visit [facility] - Neurosurgery [address] [facility] [place] [address] Jeffrey Escobar MD [facility] [place] [address] 12/03/2024 11:15 AM CDT Office Visit [facility] - Pain Management [address] [place] [phone] Zak Caban MD [address] [place] [address] 10/25/2025 11:00 AM CDT Office Visit [facility] - Urology [address] [place] [phone] Ney Baxter PA [address] [place] [phone] documented as of this encounter Visit Diagnoses Diagnosis Lower urinary tract symptoms (LUTS) Other symptoms involving urinary system documented in this encounter Care Teams Ethnoarchaeology Professor Relationship Specialty Start Date End Date Brian Bryson MD [address] [place] [address] [address] [place] [address] PCP - General 05/21/18 documented as of this encounter
--- OUTSIDE RECORDS SUMMARY | 2024-11-28 10:11 | XMS_ITS | Encounter Summary ---
Author Organization [facility] Address [address] [place] [address] Phone Care Team Providers Care Public Works Technician Name Role Phone Brian Bryson MD Primary Care Provider [phone] Harvey Jaimes MD Unavailable [phone] Lucas Lopez MD Unavailable [phone] Reason for Visit * Reason Comments Medication Refill Encounter Details Date Type Department Care Team (Late Contact Info) Description 06/19/2023 Refill [facility] [address] [phone] Harvey Jaimes MD [address] [facility] [address] [address] Medication Refill Social History Tobacco [...] 9:23 AM CST Please refill if appropriate. GRINDER documented in this encounter Plan of Treatment Upcoming Encounters Date Type Department Care Team (Late Contact Info) Description 05/06/2025 11:15 AM CDT Lab [facility] [address] [phone] Lab, Cc [facility] 05/06/2025 11:30 AM CDT Office Visit [facility] [place] [address] [place] [phone] Harvey Jaimes MD [address] [facility] 2 [place] [address] documented as of this encounter Visit Diagnoses Diagnosis Anemia of unknown etiology Anemia, unspecified documented in this encounter Additional Health Concerns Assessment Noted Time PHQ-9 Depression Total Score: 0 12/08/19 21 1:48 PM CDT documented as of this encounter Care Teams Public Works Technician Relationship Specialty Start Date End Date Brian Bryson MD [address] [facility] 4 [place] [address] PCP - General Family Medicine 11/14/20 Harvey Jaimes MD [address] [place] [phone] Consulting Physician Oncology 10/18/21 Lucas Lopez MD [address] [place] [id number] Gastroenterology 03/06/22 documented as of this encounter
--- OUTSIDE RECORDS SUMMARY | 2024-11-28 10:11 | XMS_ITS | Clinical Summary ---
Author Organization [facility] Address [address], [facility] [place] [address] Phone Care Team Providers Care Paradichlorobenzene Tender Name Role Phone Brian Bryson MD Primary Care Provider [phone] Harvey Jaimes MD Unavailable [phone] Lucas Lopez MD Unavailable [phone] Allergies Active Allergy Reactions Criticality Noted Date Comments Amoxicillin-Pot Clavulanate Other (see Comments) Low 10/06/2018 NEAR SYNCOPE Cilazapril Other (see Comments) 04/17/2017 Diaphoresis Ciprofloxacin Other (see Comments),Unknown 11/13/2017 Cold sweats, dizzy. Adverse reaction Medications acetaminophen (TYLENOL) 325 MG Tablet Take 650 mg by mouth as needed. 6 Active amLODIPine (NORVASC) 5 MG Tablet Take 5 mg by mouth. 9 Active finasteride (PROSCAR) 5 MG Tablet TAKE 1 TABLET BY MOUTH EVERY DAY 9 Active gabapentin (NEURONTIN) 600 MG Tablet 3 pills daily 0 Active losartan (COZAAR) 50 MG Tablet Take 50 mg by mouth daily. 0 Active tiZANidine (ZANAFLEX) 2 MG Tablet Take 2 mg by mouth. 2 in am and 2 in pm 9 Active omeprazole (PriLOSEC) 40 MG CAPSULE DELAYED RELEASE TAKE 1 CAPSULE BY MOUTH TWICE A DAY 1 Active [place]-3 Fatty Acids (FISH OIL PO) Take 2,000 mg by mouth. Active aspirin EC 81 MG Tablet Delayed Response aspirin 81 mg tablet,delayed release Active pravastatin (PRAVACHOL) 80 MG Tablet 2 Active senna-docusate (SENOKOT S) 8.6-50 MG Tablet Take 2 Tablets by mouth. 3 Active Polyethylene Glycol 3350 Powder Take 17 g by mouth. 3 Active DULoxetine (CYMBALTA) [address] Particles Take 30 mg by mouth. 4 Active traMADol (ULTRAM) 50 MG Tablet Take 50 mg by mouth. 4 Active Ferrous Sulfate 325 (65 Fe) MG Tablet Delayed ResponseIndica tions:Anemia of unknown etiology TAKE 1 TABLET BY MOUTH DAILY. 30 Tablet 4 4 Active pantoprazole (PROTONIX) 20 MG Tablet Delayed Response TAKE 1 TABLET BY MOUTH DAILY 90 Tablet 4 5 Active dexamethasone (DECADRON) 2 MG Tablet Take 6 mg by mouth. 5 Active ketorolac (TORADOL) 10 MG Tablet Take 10 mg by mouth. 5 Active lidocaine (LIDODERM) 5 % Patch 2 Patches by Transdermal route. 5 Active rOPINIRole (REQUIP) 1 MG Tablet Take 1 mg by mouth. 5 Active ergocalciferol (VITAMIN D) 41030 UNIT Capsule 1 11/06/19 25 Discontin ued(Med List Clean Up) fenofibrate (TRICOR) 145 MG Tablet Take 145 mg by mouth daily. 11/06/19 25 Discontin ued(Med List Clean Up) meloxicam (MOBIC) 15 MG Tablet 2 11/06/19 25 Discontin ued(Med List Clean Up) rOPINIRole (REQUIP) 0.5 MG Tablet Take 0.5 mg by mouth. 11/06/19 25 Discontin ued(Med List Clean Up) atorvastatin (LIPITOR) 40 MG Tablet 3 11/06/19 25 Discontin ued(Med List Clean Up) HYDROcodone-ac etaminophen (NORCO) 5-325 MG Tablet Take 1 Tablet by mouth every 6 hours as needed. 4 11/06/19 25 Discontin ued(Med List Clean Up) HYDROcodone-ac etaminophen (NORCO) 7.5-325 MG Tablet Take 1 tablet every 6 hours as needed for severe pain. 4 11/06/19 25 Discontin ued(Med List Clean Up) Active Problems Problem Noted Date Diagnosed Date Leg skin lesion, right 12/07/2020 Lung nodule 04/13/2020 Thrombocytosis 04/17/2017 Anemia of unknown etiology 04/17/2017 Encounters Date Type Department Care Team Description 11/05/2024 9:30 AM CDT Lab [facility] [address] [address] Lab, Linda Paulson Thrombocytosis; Anemia of unknown etiology 11/05/2024 9:15 AM CDT Office Visit [facility] [address] [phone] Harvey Jaimes MD Thrombocytosis (Primary Dx); Anemia of unknown etiology 11/05/2024 9:00 AM CDT Clinical Support [facility] [address] [address] Nurse, Linda Paulson Anemia of unknown etiology (Primary Dx) 11/05/2024 Travel 10/27/2024 Refill [facility] [place] [id number], [facility] [place] [phone] Lei Vicente, TEACHER ASST, PEN MAKER Medication Refill 10/22/2024 9:00 AM CDT Ancillary Procedure [facility] [address] [id number] Anemia of unknown etiology; Thrombocytosis; Lung nodule 10/22/2024 Travel 09/30/2024 2:45 PM CDT Clinical Support [facility] [address] [address] Nurse, Linda Paulson Anemia of unknown etiology (Primary Dx) 09/30/2024 Travel from Last 3 Months Immunizations Immunization Administration Dates Next Due Covid-19, Mrna, Lnp-s, Pf, 30 Mcg/0.3 Ml Dose (P fizer) 12/05/2020,11/13/2020 Family History Medical History Relation Name Comments [...] Not Answered Alcohol Use Standard Drinks/Week Comments No 0 [...] Sign Reading Time Taken Comments Blood Pressure 140/82 11/05/2024 8:39 AM CDT Pulse 70 11/05/2024 8:39 AM CDT Temperature 36.4 C (97.5 F) 11/05/2024 8:39 AM CDT Respiratory Rate 18 11/05/2024 8:39 AM CDT Oxygen Saturation 96% 11/05/2024 8:39 AM CDT Inhaled Oxygen Concentration - - Weight 105.7 kg (233 lb 1.6 oz) 11/05/2024 8:39 AM CDT Height 177.8 cm (5' 10 ) 11/05/2024 8:39 AM CDT Body Mass Index 33.45 11/05/2024 8:39 AM CDT Plan of Treatment Upcoming Encounters Date Type Department Care Team (Late st Contact Info) Description 05/06/2025 11:15 AM CDT Lab [facility] [address] [phone] Lab, Cc [facility] 05/06/2025 11:30 AM CDT Office Visit [facility] [address] [address] Harvey Jaimes MD [address] [place], [place] [address] Health Maintenance Due Date Last Done Comments TdaP Immunization 1965 Colonoscopy 2009 Colorectal Cancer Screening 2009 Cologuard 2014 Immunochemical Fecal Occult Blood 2014 Pneumococcal Immunization (50+ years) (1 of 1 - PCV) 2014 Zoster Immunization (1 of 2) 2014 SARS-COV-2 Immunization (3 - season) 2024 12/05/2020, 11/13/2020 Influenza Immunization (Season Ended) 2025 Respiratory Syncytial Virus (RSV) Immunization (Adult) (1 - 1-dose 75+ series) 2039 Hepatitis C Virus (HCV) Screening Completed 09/12/2022, 04/12/2022, 04/12/2022, Additional history exists PSA Discussion Completed 05/26/2023 Hepatitis B Immunization Aged Out No longer eligible based on patient's age to complete this topic Human Papillomavirus (HPV) Immunization Aged Out No longer eligible based on patient's age to complete this topic Meningococcal Immunization (ACWY) Aged Out No longer eligible based on patient's age to complete this topic Rotavirus Immunization Aged Out No lo nger eligible based on patient's age to complete this topic Procedures Procedure Name Priority Date/Time Associated Diagnosis Comments CBC WITH AUTO DIFF [place] Routine 11/05/2024 9:24 AM CDT CMP (COMPREHENSIVE METABOLIC PANEL) Routine 11/05/2024 9:24 AM CDT Thrombocytosis Anemia of unknown etiology LACTATE DEHYDROGENASE (LD) Routine 11/05/2024 9:24 AM CDT Thrombocytosis Anemia of unknown etiology FOLIC ACID (FOLATE) Routine 11/05/2024 9 :24 AM CDT Thrombocytosis Anemia of unknown etiology FERRITIN Routine 11/05/2024 9:24 AM CDT Thrombocytosis Anemia of unknown etiology RETICULOCYTE COUNT (RETIC) Routine 11/05/2024 9:24 AM CDT Thrombocytosis Anemia of unknown etiology IRON W/ IRON BINDING CAPACITY [place] Routine 11/05/2024 9:24 AM CDT Thrombocytosis Anemia of unknown etiology VITAMIN B12 Routine 11/05/2024 9:24 AM CDT Thrombocytosis Anemia of unknown etiology CT CHEST W/O CONTRAST Routine 10/22/2024 8:53 AM CDT Anemia of unknown etiology Thrombocytosis Lung nodule PSA DIAGNOSTIC,TOTAL Routine 05/26/2023 10:55 AM GRAND SCRIBE HEPATITIS C ANTIBODY Routine 04/12/2022 11:24 AM CDT from Last 3 Months or Most Recently Relevant to Health Maintenance Results * (ABNORMAL) IRON W/ IRON BINDING CAPACITY [place] (11/05/2024 9:24 AM CDT) Pathologist [facility] IRON 71 50 - 212 ug/dL [employer] [facility] UIBC 186 155 - 355 ug/dL [facility] TIBC 257(L) 261 - 478 ug/dl [facility] % Saturation 28 20 - 50 % [employer] [facility] 11/05/2024 9:24 AM CDT Narrative [employer] [facility] - 11/05/2024 10:21 AM CDT Release to patient->Immediate Harvey Jaimes MD LAB SEND OUTS Final Result [employer] [facility] [address] [place] [address], * (ABNORMAL) CBC WITH AUTO DIFF [place] (11/05/2024 9:24 AM CDT) WBC 10.1(H) 4.0 - 10.0 10*3/uL [facility] HGB 14.8 13.7 - 17.5 g/dL [facility] HCT 43.8 40.1 - 51.0 % [facility] PLT 307 163 - 369 10*3/uL [facility] MPV 9.8 9.4 - 12.4 fL [facility] RBC 4.70 4.63 - 6.08 10*6/uL [facility] MCV 93 79 - 95 fL [facility] MCH 31.5 25.6 - 32.2 pg [facility] MCHC 33.8 32.2 - 36.5 g/dL [facility] RDW 13.9 11.6 - 14.4 % [facility] Neutrophils % 54.0 36.0 - 66.0 % [facility] Lymphocytes % 35.3 19.0 - 40.0 % [facility] Monocytes % 7.7 4.1 - 12.1 % [facility] Eosinophils % 2.0 0.0 - 3.5 % [facility] Basophils % 0.6 0.0 - 1.0 % [facility] Absolute Neutrophils 5.5 1.4 - 6.6 10*3/uL [facility] Absolute Lymphocytes 3.6 0.8 - 4.0 10*3/uL [facility] Absolute Monocytes 0.8 0.2 - 1.2 10*3/uL [facility] Absolute Eosinophils 0.2 0.0 - 0.4 10*3/uL [facility] Absolute Basophils 0.1 0.0 - 0.1 10*3/uL [facility] 11/05/2024 9:24 AM CDT us Harvey Jaimes MD LAB SEND OUTS Final Result Performing Organization Address City/[facility]/ZIP Co de Phone Number [facility] * VITAMIN B12 (11/05/2024 9:24 AM CDT) Vitamin B12 >1,500 180 - 914 pg/mL [employer] [facility] Blood 11/05/2024 9:24 AM CDT Narrative [employer] [facility] - 11/05/2024 1:51 PM CDT Release to patient->Immediate us Harvey Jaimes MD CHEMISTRY ORDERABLES Final R esult [employer] [facility] [place] [address], * RETICULOCYTE COUNT (RETIC) (11/05/2024 9:24 AM CDT) Reticulocyte count 1.67 0.51 - 1.81 % [employer] [facility] RET-He 34.70 28.20 - 36.60 pg [employer] [facility] Comment: RET-He is a direct assessment of incorporation of iron into erythrocyte hemoglobin. It provides an indirect measure of the iron available for new erythropoiesis over past 2-4 days. Blood 11/05/2024 9:24 AM CDT Harvey Jaimes MD HEMATOLOGY ORDERABLES Final Result Performing Organization Address City/[facility]/ZIP Co de Phone Number [employer] [facility] [place] [address], * (ABNORMAL) LACTATE DEHYDROGENASE (LD) (11/05/2024 9:24 AM CDT) LDH 106(L) 140 - 271 U/L [facility] Blood 11/05/2024 9:24 AM CDT Narrative [facility] - 11/05/2024 10:21 AM CDT Release to patient->Immediate Harvey Jaimes MD CHEMISTRY ORDERABLES Final R esult Performing Organization Address City/[facility]/ZIP Co de Phone Number [facility] [place] [address], * FOLIC ACID (FOLATE) (11/05/2024 9:24 AM CDT) Folate >20.00 >=5.90 ng/mL [facility] Blood 11/05/2024 9:24 AM CDT Narrative [facility] - 11/05/2024 1:51 PM CDT Release to patient->Immediate IS THE PATIENT REQUIRED TO BE FASTING FOR 12 HOURS?->No Harvey Jaimes MD CHEMISTRY ORDERABLES Final R esult [employer] [facility] [place] [address], [place] [phone] * FERRITIN (11/05/2024 9:24 AM CDT) Ferritin 136 24 - 336 ng/mL [facility] Blood 11/05/2024 9:24 AM CDT Narrative [facility] - 11/05/2024 1:51 PM CDT Release to patient->Immediate Harvey Jaimes MD CHEMISTRY ORDERABLES Final R esult Performing Organization Address City/[facility] Co de Phone Number [employer] [facility] [place] [address], [place] [phone] * (ABNORMAL) CMP (COMPREHENSIVE METABOLIC PANEL) (11/05/2024 9:24 AM CDT) Glucose 101 70 - 105 mg/dL [facility] Blood Urea Nitrogen 17 7 - 25 mg/dL [facility] Creatinine 0.7 0.7 - 1.3 mg/dL [facility] Sodium 141 136 - 145 mEq/L [facility] Potassium 3.7 3.5 - 5.1 mEq/L [facility] Chloride 104 98 - 107 mEq/L [facility] Bicarbonate 25 21 - 31 mEq/L [facility] Total Bilirubin 0.3 0.3 - 1.0 mg/dL [facility] Alk. Phosphatase 45 34 - 104 U/L [facility] Aspartate Aminotransferase 14 13 - 39 U/L [facility] Alanine Aminotransferase 18 7 - 52 U/L [facility] Total Protein 6.8 6.4 - 8.9 g/dL [facility] Albumin 4.4 3.5 - 5.7 g/dL [facility] Calcium 8.7 8.6 - 10.3 mg/dL [facility] Anion Gap 15.7(H) 7.0 - 15.0 mEq/L [facility] Globulin 2.4 2.0 - 3.5 g/dL [facility] EGFR 105 >60 ml/min/1. 73m2 [employer] [facility] Comment: This eGFR is calculated using 2020 CKD-EPI Creatinine equation without race modifier based on the NKF-ASN task force recommendations Equation: nGGU=749*min(SCr/k,1)a*max(SCr/k,1)-1.200*0.9938Age*1.012 (if female), where SCr is serum creatinine, k is 0.7 for females and 0.9 for males, and a is -0.241 for females and -0.302 for males Blood 11/05/2024 9:24 AM CDT Narrative [facility] - 11/05/2024 10:21 AM CDT Release to patient->Immediate IS THE PATIENT REQUIRED TO BE FASTING FOR 8 HOURS?->No us Harvey Jaimes MD CHEMISTRY ORDERABLES Final R esult [employer] [facility] [place] [address], * CT CHEST W/O CONTRAST (10/22/2024 8:53 AM CDT) Anatomical Region Laterality Modality Chest N/A Computed Tomogra phy Narrative 10/22/2024 9:03 AM CDT EXAMINATION: CT CHEST W/O CONTRAST 10/22/2024 HPI: 59-year-old male pulmonary nodule follow-up COMPARISON: Pertinent prior examinations TECHNIQUE: Helical imaging of the chest obtained without the intravenous administration of contrast. A dose lowering technique was used for this procedure, which may include, but is not limited to, dose reduction technique(s), automated exposure control techniques, use of iterative reconstruction techniques, and ALARA (as low as reasonably achievable) or ALARA/IMAGE Gently techniques. FINDINGS: CARDIOVASCULAR: Cardia is unchanged in size. A trace of pericardial fluid is seen. The aorta reveals mild calcific plaquing with tortuosity. No aneurysm is seen. The central pulmonary artery is normal in caliber. Coronary calcification:Moderate LYMPHATICS: No suspicious adenopathy is seen. PULMONARY:A pulmonary cyst is seen in the posterior segment of the left upper lobe. This is 2.2 x 2.1 cm. It is thin walled without septations or nodularity. It is unchanged in its characteristics in comparison to prior studies. A cyst is seen in the right lower lobe. This is 11 x 13 mm. It is thin walled without nodularity or septations. It is unchanged in comparison to previous studies. Bibasilar atelectatic changes are demonstrated. A stable lingular nodule is present. This is stable for greater than 2 years and therefore felt to be benign in etiology. No endobronchial disease is seen. No developing consolidation or collapse is appreciated. MUSCULOSKELETAL: Scoliosis is present. No lytic or blastic lesions are seen UPPER ABDOMEN: Splenosis is present. IMPRESSION No significant change in the CT appearance of the chest Electronically signed by: BRIGIDA WHARTON MD Date of Signature: 10/22/2024 09:03:59 Procedure Note Brigida Wharton MD - 10/22/2024 EXAMINATION: CT CHEST W/O CONTRAST 10/22/2024 HPI: 59-year-old male pulmonary nodule follow-up COMPARISON: Pertinent prior examinations TECHNIQUE: Helical imaging of the chest obtained without the intravenousadministration of contrast. A dose lowering technique was used for this procedure, which may include,but is not limited to, dose reduction technique(s), automated exposurecontrol techniques, use of iterative reconstruction techniques, and ALARA(as low as reasonably achievable) or ALARA/IMAGE Gently techniques. FINDINGS: CARDIOVASCULAR: Cardia is unchanged in size. A trace of pericardial fluidis seen. The aorta reveals mild calcific plaquing with tortuosity. Noaneurysm is seen. The central pulmonary artery is normal in caliber. Coronary calcification:Moderate LYMPHATICS: No suspicious adenopathy is seen. PULMONARY:A pulmonary cyst is seen in the posterior segment of the leftupper lobe. This is 2.2 x 2.1 cm. It is thin walled without septationsor nodularity. It is unchanged in its characteristics in comparison toprior studies. A cyst is seen in the right lower lobe. This is 11 x 13 mm. It is thinwalled without nodularity or septations. It is unchanged in comparison toprevious studies. Bibasilar atelectatic changes are demonstrated. A stable lingular noduleis present. This is stable for greater than 2 years and therefore felt brice benign in etiology. No endobronchial disease is seen. No developingconsolidation or collapse is appreciated. MUSCULOSKELETAL: Scoliosis is present. No lytic or blastic lesions areseen UPPER ABDOMEN: Splenosis is present. IMPRESSION No significant change in the CT appearance of the chest Electronically signed by: BRIGIDA WHARTON MD Date of Signature: 10/22/2024 09:03:59 Harvey Jaimes MD IMG CT ORDERABLES Final Resu lt * PSA DIAGNOSTIC,TOTAL (05/26/2023 10:55 AM GRAND SCRIBE) PSA 0.07 0.00 - 4.00 ng/mL [employer] [facility] Comment: Ian Paramagnetic Particle Chemiluminescent Immunoassay Method 05/26/2023 10:5 5 AM GRAND SCRIBE Brian Bryson MD CHEMISTRY ORDERABLES Final Resul t [employer] [facility] [place] [address], * (ABNORMAL) HEPATITIS C ANTIBODY (04/12/2022 11:24 AM CDT) HEPATITIS C VIRUS AB SIGNAL CUTOFF >11.0(H) 0.0 - 0.9 S/CO RATIO [facility] Comment:. HEPATITIS C QUANTITATION SEE FINAL RESULTS IU/ML [facility] TEST INFORMATION COMMENT [facility] Comment: THE QUANTITATIVE RANGE OF THIS ASSAY IS 15 IU/ML TO 100 MILLION IU/ML. INTERPRETATION COMMENT [facility] Comment: POSITIVE HCV ANTIBODY SCREEN WITH THE PRESENCE OF HCV RNA IS CONSISTENT WITH ACTIVE INFECTION. 04/12/2022 11:2 4 AM CDT Narrative [facility] - 04/15/2022 8:13 PM CDT TESTING PERFORMED AT: [CB] [facility], [address], [place], [address], PHONE: [phone], DIGITAL PRINTER: MADDY MCINTOSH, PHD TESTING PERFORMED AT: [BN] [facility] [address], [place], [address], PHONE: [phone], DIGITAL PRINTER: FELIX FLANAGAN MD us Lucas Lopez MD CHEMISTRY ORDERABLES Final Resu lt [facility] from Last 3 Months or Most Recently Relevant to Health Maintenance Insurance [employer]ICAID [employer] Care Teams Paradichlorobenzene Tender Relationship Specialty Start Date End Date Brian Bryson MD [address] [address] PCP - General Family Medicine 11/14/20 Harvey Jaimes MD [address] [place] [phone] Consulting Physician Oncology 10/18/21 [place] [address] [place] [address] Gastroenterology 03/06/22
--- OUTSIDE RECORDS SUMMARY | 2024-11-28 10:11 | XMS_ITS | Encounter Summary ---
Author Organization [facility] Address [address] [place] [address] Phone Care Team Providers Care Tree Specialist Name Role Phone Brian Bryson MD Primary Care Provider [phone] Harvey Jaimes MD Unavailable [phone] Lucas Lopez MD Unavailable [phone] Reason for Visit * Reason Comments Medication Refill Encounter Details Date Type Department Care Team (Late st Contact Info) Description 08/18/2023 Refill [facility] [address] [address] Harvey Jaimes MD [address] [address] Medication Refill Social History Tobacco [...] Catrina Frazier RN - 08/18/2023 8:04 AM ALMOND PAN FINISHER Please fill if appropriate [place] PAN FINISHER documented in this encounter Plan of Treatment Upcoming Encounters Date Type Department Care Team (Late st Contact Info) Description 05/06/2025 11:15 AM CDT Lab [facility] [address] [phone] Lab, Cc [facility] 05/06/2025 11:30 AM CDT Office Visit [facility] [address] [phone] Harvey Jaimes MD [address] [facility] [facility] [address] [place] [address] documented as of this encounter Visit Diagnoses Diagnosis Anemia of unknown etiology Anemia, unspecified documented in this encounter Additional Health Concerns Assessment Noted Time PHQ-9 Depression Total Score: 0 12/08/19 21 1:48 PM CDT documented as of this encounter Care Teams Tree Specialist Relationship Specialty Start Date End Date Brian Bryson MD [address] [place] [address] PCP - General Family Medicine 11/14/20 Harvey Jaimes MD [address] [place] [phone] Consulting Physician Oncology 10/18/21 Lucas Lopez MD [address] [place] [address] Gastroenterology 03/06/22 documented as of this encounter
--- OUTSIDE RECORDS SUMMARY | 2024-11-28 10:11 | XMS_ITS | Encounter Summary ---
Author Organization [facility] Address [address] [place] [address] Phone Care Team Providers Care Residential Property Tax Appraiser Name Role Phone Brian Bryson MD Primary Care Provider [phone] Harvey Jaimes MD Unavailable [phone] Lucas Lopez MD Unavailable [phone] Reason for Visit * Reason Comments Medication Refill Encounter Details Date Type Department Care Team (Late st Contact Info) Description 07/25/2022 Refill [facility] [address] [place] [address] Harvey Jaimes MD [address] [address] Medication Refill Social History Tobacco [...] Coronavirus/COVID-19? No / Unsure 07/22/2022 10:40 AM CIRCULATION SUPERVISOR documented as of this encounter Miscellaneous Notes * Telephone Encounter - Patt Almazan - 07/25/2022 10:21 AM CST Please refill if appropriate. ULATION SUPERVISOR * Telephone Encounter - Patt Almazan - 07/25/2022 9:01 AM CST please ULATION SUPERVISOR documented in this encounter Plan of Treatment Upcoming Encounters Date Type Department Care Team (Late st Contact Info) Description 05/06/2025 11:15 AM CDT Lab [facility] [address] [phone] Lab, Cc [facility] 05/06/2025 11:30 AM CDT Office Visit [facility] [address] [phone] Harvey Jaimes MD [address] [id number] documented as of this encounter Visit Diagnoses Diagnosis Anemia of unknown etiology Anemia, unspecified documented in this encounter Additional Health Concerns Assessment Noted Time PHQ-9 Depression Total Score: 0 12/08/19 21 1:48 PM CDT documented as of this encounter Care Teams Residential Property Tax Appraiser Relationship Specialty Start Date End Date Brian Bryson MD [address] [address] PCP - General Family Medicine 11/14/20 Harvey Jaimes MD [address] [place] [phone] Consulting Physician Oncology 10/18/21 Lucas Lopez MD [address] [place] [address] Gastroenterology 03/06/22 documented as of this encounter
--- OUTSIDE RECORDS SUMMARY | 2024-11-28 10:11 | XMS_ITS | Encounter Summary ---
Author Organization [facility] Address [address] [place] [address] Phone Care Team Providers Care Heel Compressor Name Role Phone Brian Bryson MD Primary Care Provider [phone] Harvey Jaimes MD Unavailable [phone] Lucas Lopez MD Unavailable [phone] Reason for Visit * Reason Comments Medication Refill Encounter Details Date Type Department Care Team (Late st Contact Info) Description 05/13/2021 Refill [facility] [address] [place] [address] Harvey Jaimes MD [address] [facility] [address] [address] Medication Refill Social History Tobacco [...] AM CDT Lab [facility] [address] [phone] Lab, Cc [facility] 05/06/2025 11:30 AM CDT Office Visit [facility] [address] [phone] Harvey Jaimes MD [address] [facility] [address] [place] [address] documented as of this encounter Visit Diagnoses Not on filedocumented in this encounter Additional Health Concerns Assessment Noted Time PHQ-9 Depression Total Score: 0 12/08/19 21 1:48 PM CDT documented as of this encounter Care Teams Heel Compressor Relationship Specialty Start Date End Date Brian Bryson MD [address] [place] [address] PCP - General Family Medicine 11/14/20 Harvey Jaimes MD [address] [place] [phone] Consulting Physician Oncology 10/18/21 Lucas Lopez MD [address] [place] [address] Gastroenterology 03/06/22 documented as of this encounter
--- OUTSIDE RECORDS SUMMARY | 2024-11-28 10:11 | XMS_ITS | Encounter Summary ---
Author Organization [facility] Address [address] [place] [address] Phone Care Team Providers Care Cinder Pit Crane Operator Name Role Phone Brian Bryson MD Primary Care Provider [phone] Harvey Jaimes MD Unavailable [phone] Lucas Lopez MD Unavailable [phone] Reason for Visit * Reason Comments Medication Refill Encounter Details Date Type Department Care Team (Late st Contact Info) Description 10/22/2022 Refill [facility] [address] [place] [address] Harvey Jaimes MD [address] [address] Medication Refill Social History Tobacco [...] 11:15 AM CDT Lab [facility] [address] [phone] Lab, Cc [facility] 05/06/2025 11:30 AM CDT Office Visit [facility] [address] [phone] Harvey Jaimes MD [address] [phone] documented as of this encounter Visit Diagnoses Diagnosis Anemia of unknown etiology Anemia, unspecified documented in this encounter Additional Health Concerns Assessment Noted Time PHQ-9 Depression Total Score: 0 12/08/19 21 1:48 PM CDT documented as of this encounter Care Teams Cinder Pit Crane Operator Relationship Specialty Start Date End Date Brian Bryson MD [address] [place] [address] PCP - General Family Medicine 11/14/20 Harvey Jaimes MD [address] [place] [phone] Consulting Physician Oncology 10/18/21 Lucas Lopez MD [address] [place] [phone] Gastroenterology 03/06/22 documented as of this encounter
--- OUTSIDE RECORDS SUMMARY | 2024-11-28 10:11 | XMS_ITS | Encounter Summary ---
Author Organization [facility] Address [address] [place] [address] Phone Care Team Providers Care Earth Auger Operator Name Role Phone Brian Bryson MD Primary Care Provider [phone] Harvey Jaimes MD Unavailable [phone] Lucas Lopez MD Unavailable [phone] Reason for Visit * Reason Comments Medication Refill Encounter Details Date Type Department Care Team (Late st Contact Info) Description 10/14/2021 Refill [facility] [address] [place] [address] Harvey Jaimes MD [address] [address] Medication Refill Social History Tobacco [...] 11:15 AM CDT Lab [facility] [address] [phone] Lab, Cc [facility] 05/06/2025 11:30 AM CDT Office Visit [facility] [address] [phone] Harvey Jaimes MD [facility] [address] documented as of this encounter Visit Diagnoses Diagnosis Anemia of unknown etiology- Primary Anemia, unspecified documented in this encounter Additional Health Concerns Assessment Noted Time PHQ-9 Depression Total Score: 0 12/08/19 21 1:48 PM CDT documented as of this encounter Care Teams Earth Auger Operator Relationship Specialty Start Date End Date Brian Bryson MD [facility] [address] [address] PCP - General Family Medicine 11/14/20 Harvey Jaimes MD [address] [place] [phone] Consulting Physician Oncology 10/18/21 Lucas Lopez MD [address] [place] [address] Gastroenterology 03/06/22 documented as of this encounter
--- OUTSIDE RECORDS SUMMARY | 2024-11-28 10:11 | XMS_ITS | Encounter Summary ---
Author Organization [facility] Address [address] [place] [address] Phone Care Team Providers Care Qa Lead Name Role Phone Brian Bryson MD Primary Care Provider [phone] Harvey Jaimes MD Unavailable [phone] Lucas Lopez MD Unavailable [phone] Reason for Visit * Reason Comments Medication Refill Encounter Details Date Type Department Care Team (Late Contact Info) Description 12/31/2023 Refill [facility] [address] [address] Harvey Jaimes MD [address] [facility] [address] [address] Medication Refill Social History Tobacco [...] AM CDT Lab [facility] [address] [phone] Lab, Cc [facility] 05/06/2025 11:30 AM CDT Office Visit [facility] [address] [place] [phone] Harvey Jaimes MD [address] [facility] 2 [place] [address] documented as of this encounter Visit Diagnoses Diagnosis Anemia of unknown etiology Anemia, unspecified documented in this encounter Additional Health Concerns Assessment Noted Time PHQ-9 Depression Total Score: 0 12/08/19 21 1:48 PM CDT documented as of this encounter Care Teams Qa Lead Relationship Specialty Start Date End Date Brian Bryson MD [address] [place] [address] PCP - General Family Medicine 11/14/20 Harvey Jaimes MD [address] [place] [phone] Consulting Physician Oncology 10/18/21 Lucas Lopez MD [address] [place] [address] Gastroenterology 03/06/22 documented as of this encounter
--- OUTSIDE RECORDS SUMMARY | 2024-11-28 10:11 | XMS_ITS | CONTINUITY OF CARE DOCUMENT ---
Author Name oskar schmitt Address Unknown Organization [facility] Address [address] [place] [address] [address] [place] [address] Phone [phone] Care Team Providers Care Store Product Demonstrator Name Role Phone oskar schmitt Unavailable Unavailable INSURANCE PROVIDERS Payer name Policy type / Coverage type [employer] red green party ID [id number] [id number]
--- OUTSIDE RECORDS SUMMARY | 2024-11-28 10:11 | XMS_ITS | Clinical Summary ---
Author Organization [facility] Address [facility] [place] [address] Care Team Providers Care Computer Installation Engineer Name Role Phone Brian Bryson MD Primary Care Provider [phone] Allergies Active Allergy Reactions Criticality Noted Date [...] Comments Blood Pressure 108/60 07/01/2019 1:35 PM [employer] Pulse 63 07/01/2019 1:35 PM [employer] Temperature 36.3 C (97.4 F) 01/20/2019 1:20 PM CDT Respiratory Rate 20 01/20/2019 1:20 PM CDT Oxygen Saturation 95% 01/20/2019 1:20 PM CDT Inhaled Oxygen Concentration - - Weight 99.8 kg (220 lb) 07/01/2019 1:35 PM [employer] Height 182.9 cm (6') 01/20/2019 1:20 PM CDT Body Mass Index 29.84 01/20/2019 1:20 PM CDT Plan of Treatment Health Maintenance Due Date Last Done Comments Colorectal Cancer Screening Colonoscopy (10 Years) 1964 Meningococcal Vaccine (1 - R isk 2-dose series) 1966 Annual Physical 1967 Meningococcal B Vaccine (1 o f 5 - Increased Risk) 1974 Hepatitis C 1982 DTaP, Tdap and Td Vaccines ( 1 - Tdap) 1983 Pneumococcal Vaccine: 50+ Ye ars (1 of 2 - PCV) 1983 Zoster Vaccines (1 of 2) 2014 COVID-19 Vaccine ( - 2023-2 5 season) 2024 RSV Immunization or 60+ Years (1 - 1-dose 75+ series) 2039 RSV Immunizations Under 20 Months Aged Out No longer eligible based on patient's age to complete this topic Insurance [employer] Care Teams Computer Installation Engineer Relationship Specialty Start Date End Date Brian Bryson MD [address] [address] PCP - General FAMILY PRACTICE 10/29/18
--- OUTSIDE RECORDS SUMMARY | 2024-11-28 10:11 | XMS_ITS | Clinical Summary ---
Author Organization [email or web address] Address [address] [place] [address] Care Team Providers Care Poultry Dresser Name Role Phone Brian Bryson MD Primary Care Provider [phone] Source Comments [email or web address],non-owned Affiliates and Associated Physician Practices is amultiple site organization consisting of ambulatory clinics and hospital sitesin [place], [place], [place] and [place]. This disclosure is being madepursuant to the Care Everywhere program and may not contain all information available regarding this patient. Last updated 18.[email or web address] Allergies Active Allergy Reactions Criticality Noted Date Comments Amoxicillin-Pot Clavulanate Other Low 10/06/2018 NEAR SYNCOPE Cilazapril Skin Reactions 04/17/2017 Diaphoresis. Ciprofloxacin Other,Urticaria Medium 11/13/2017 Cold sweats, dizzy. Quetiapine Unknown 08/04/2019 Medications * Be aware that medications may not be up to date on this document. Alwaysverify current medications with the patient. amLODIPine (NORVASC) 5 MG tablet Take 5 mg by mouth once daily Active Elastic Bandages & Supports (ABDOMINAL BINDER/ELASTIC LARGE) MISCIndications :Incisional hernia of anterior abdominal wall without obstruction or gangrene Use 1 Units continuous Please fit and dispense custom abdominal binder. 1 Each 2 03/18/20 19 Active tiZANidine (ZANAFLEX) 2 MG tablet Take 2 mg by mouth every 8 hours 1 05/19/20 19 Active gabapentin (NEURONTIN) 600 MG tablet 900 mg 09/06/19 20 Active losartan (COZAAR) 50 MG tablet Take 50 mg by mouth once daily 03/23/20 20 Active Multiple Vitamins-Minera ls (MULTIVITAMIN ADULT PO) Active omeprazole (PRILOSEC) 40 MG capsule omeprazole 40 mg capsule,delayed release TAKE 1 CAPSULE BY MOUTH TWICE A DAY FOR BEFORE MEALS 10/18/19 21 Active solifenacin (VESICARE) 10 MG tablet Take 1 (one) tablet by mouth once daily 90 tablet 4 02/07/20 21 Active vitamin D, ergocalciferol, (DRISDOL) 1.25 MG (99483 UT) capsule TAKE 1 CAPSULE BY MOUTH ONE TIME PER WEEK 02/12/20 21 Active [place]-3 Fatty Acids (KP FISH OIL) 1200 MG Take 2 capsules by mouth 2 times daily Activ e pantoprazole EC (PROTONIX) 40 MG tablet Take 40 mg by mouth 2 times daily Active aspirin EC (Ecotrin) 81 MG tablet aspirin 81 mg tablet,delayed release Active fenofibrate (Tricor) 145 MG tablet fenofibrate nanocrystallized 145 mg tablet TAKE 1 TABLET BY MOUTH EVERY DAY 08/24/19 22 Active meloxicam (Mobic) 15 MG tablet meloxicam 15 mg tablet TAKE ONE TABLET BY MOUTH DAILY NEEDED 03/06/20 22 Active ferrous sulfate 325 (65 FE) MG tablet Take 1 (one) tablet by mouth once daily 90 tablet 10/07/19 25 Active finasteride (Proscar) 5 MG tabletIndicatio ns:Benign prostatic hyperplasia with nocturia Take 1 (one) tablet by mouth once daily 90 tablet 4 10/20/19 25 Active acetaminophen (Tylenol) 500 MG tablet Take 1 (one) tablet by mouth every 6 hours as needed Active acetaminophen CR (Tylenol Arthritis Pain) 650 MG tablet Take 2 (two) tablets by mouth every 8 hours as needed Active atorvastatin (Lipitor) 40 MG tablet 02/09/20 24 Active DULoxetine (Cymbalta) 30 MG capsule Take 1 (one) capsule by mouth once daily 09/10/19 24 Active Mavyret 100-40 MG tablet Active HYDROcodone-pradeep taminophen ([place]) 5-325 MG tablet Take 1 (one) tablet by mouth every 6 hours as needed Active pravastatin (Pravachol) 20 MG tablet Take 1 (one) tablet by mouth once daily Activ e promethazine (Phenergan) 25 MG tablet TAKE 1/2 TABLET BY MOUTH EVERY 6 HOURS NEEDED FOR NAUSEA Acti ve rOPINIRole (Requip) 0.5 MG tablet Active rOPINIRole (Requip) 1 MG tablet 08/24/19 25 Active aspirin (Aspirin) 325 MG tablet Take 1 (one) tablet by mouth 2 times daily 03/12/20 24 Active Active Problems Problem Noted Date Diagnosed Date Rheumatoid factor positive 08/01/2021 Assessment & Plan (08/01/2021 3:06 PM SUPERINTENDENT OF GENERATION): Suspect low positive rheumatoid factor is related to chronic periodontal disease and gingivitis. The finding of a positive rheumatoid factor of undetermined clinical significance (with low pre-test probability for rheumatoid arthritis) without current history, examination findings, and/or additional available laboratory results for review, regarding this finding being consistent with the specific diagnosis of rheumatoid arthritis by [employer] classification criteria nor seems [...] Encounters Date Type Department Care Team Description 11/22/2024 Travel 11/01/2024 8:45 AM CDT Office Visit [facility] Neurosurgery [address] [place] [address] [place] [phone] Jeffrey Escobar MD Chronic midline low back pain without sciatica (Primary Dx) 11/01/2024 Travel 10/21/2024 Telephone [facility] [address] [place] [phone] Ney Baxter PA Results 10/19/2024 11:00 AM CDT Office Visit [facility] [address] [place] [address] Ney Baxter PA Microscopic hematuria (Primary Dx); Benign prostatic hyperplasia with nocturia 10/19/2024 Travel 10/06/2024 Orders Only [facility] [address] [place] [address] Amairani Cm RN 09/28/2024 Refill [facility] [address] [facility] [place] [phone] Raymundo Ochoa MD Refill Request from Last [...] file Not on file Not on file Last Filed Vital Signs Vital Sign Reading Time Taken Comments Blood Pressure 146/82 11/01/2024 8:36 AM CDT Pulse 68 11/01/2024 8:36 AM CDT Temperature 36.7 C (98 F) 11/01/2024 8:36 AM CDT Respiratory Rate 16 08/01/2021 2:49 PM SUPERINTENDENT OF GENERATION Oxygen Saturation 93% 11/01/2024 8:36 AM CDT Inhaled Oxygen Concentration - - Weight 104.8 kg (231 lb) 11/01/2024 8:36 AM CDT Height 182.9 cm (6') 10/19/2024 11:12 AM CDT Body Mass Index 31.33 10/19/2024 11:12 AM CDT Plan of Treatment Upcoming Encounters Date Type Department Care Team (Late st Contact Info) Description 11/29/2024 11:30 AM CDT Office Visit [facility] Neurosurgery [address] [place] [address] Jeffrey Escobar MD [facility] [place] [address] 12/03/2024 11:15 AM CDT Office Visit [facility] - Pain Management [address] [place] [phone] Zak Caban MD [address] [place] [phone] 10/25/2025 11:00 AM CDT Office Visit [facility] [address] [place] [phone] Ney Baxter PA [address] [place] [phone] Health Maintenance Due Date Last Done Comments [...] 1983 ZOSTER VACCINE (1 of 2) 2014 COVID-19 VACCINE (3 - season) 2024 12/05/2020, 11/13/2020 HEPATITIS B VACCINE (1 of 3 - Risk 3-dose series) 2024 DEPRESSION SCREENING 07/14/2024 SCREENING FOR DIABETES 10/19/2024 8, 02/01/2018, 01/31/2018, Additional history exists INFLUENZA VACCINE (Season Ended) 2025 COLONOSCOPY - COLON CA SCREENING 10/03/2027 10/02/2017 (Done Outside Per Report) Colorectal Cancer Screening 10/03/2027 Respiratory Syncytial Virus (RSV) Vaccine Pt: or over 60 yrs (1 - 1-dose 75+ series) 2039 HPV VACCINE Aged Out No longer eligi ble based on patient's age to complete this topic Procedures Procedure Name Priority Date/Time Associated Diagnosis Comments URINALYSIS W/MICROSCOPIC NO CULTURE Routine 10/19/2024 12:02 PM CDT Microscopic hematuria URINALYSIS AUTO - POINT OF CARE (AMB) [facility] Routine 10/19/2024 11:20 AM CDT Microscopic hematuria [place] MSR PVR U&/BLADD CAPCTY US NON Routine 10/19/2024 11:14 AM CDT Microscopic hematuria BASIC METABOLIC PANEL (CALCIUM TOTAL) AM Draw 02/02/2018 2:34 AM CDT Small bowel anastomotic stricture from Last 3 Months or Most Recently Relevant to Health Maintenance Results * (ABNORMAL) URINALYSIS W/MICROSCOPIC NO CULTURE (10/19/2024 12:02 PM CDT) Color UA Yellow Yellow, Straw 10/19/2024 12:46 PM CDT [facility] Clarity UA Clear Clear 10/19/2024 12:46 PM CDT [facility] Glucose UA Normal Normal 10/19/2024 12:46 PM [facility] Bilirubin UA Negative Negative 10/19/2024 12:46 PM [facility] Ketone UA Trace(A) Negative 10/19/2024 12:46 PM [facility] Specific [place] UA 1.037(H) 1.005 - 1.030 10/19/2024 12:46 PM [facility] Blood UA 1+(A) Negative 10/19/2024 12:46 PM [facility] pH UA 5.5 5.0 - 9.0 pH 10/19/2024 12:46 PM [facility] Protein UA Trace(A) Negative 10/19/2024 12:46 PM [facility] Urobilinogen UA 2.0(A) Normal mg/dL 10/19/2024 12:46 PM [facility] Nitrite UA Negative Negative 10/19/2024 12:46 PM [facility] Leukocyte UA 25 CARMEL/uL(A) Negative 10/19/2024 12:46 PM [facility] RBC UA 11-20(A) 0 - 5 # /hpf 10/19/2024 12:46 PM [facility] WBC UA 6-10(A) 0 - 5 # /hpf 10/19/2024 12:46 PM [facility] Bacteria UA Trace(A) None Seen 10/19/2024 12:46 PM [facility] Squamous Epithelial Cells 3-5 0 - 5 /hpf 10/19/2024 12:46 PM [facility] Mucus UA 4+ /LPF 10/19/2024 12:46 PM [facility] Urine URINE SPECIMEN OBTAINED BY CLEAN CATCH PROCEDURE / Unknown Collection / Unknown 10/19/2024 12:02 PM CDT 10/19/2024 12:35 PM [facility] Ney Hammer LAB - URINALYSIS ORDERABLES Olivia montalvo Result [facility] [address] [place] [address], [place] [phone] * URINALYSIS AUTO - POINT OF CARE (AMB) [facility] (10/19/2024 11:20 AM CDT) Glucose UA Negative Bilirubin UA POCT 2+ Ketones UA POCT Negative Specific [place] UA 1.030 Blood Urine POCT 10 pH UA 6.0 Protein UA 15 Urobilinogen UA 0.2 Nitrite UA Negative WBC UA Negative Urine URINE / Unknown 10/19/2024 1 1:20 AM CDT Ney Hammer LAB - POINT OF CARE ORDERABLES F inal Result * [place] MSR PVR U&/BLADD CAPCTY US NON (10/19/2024 11:14 AM CDT) Narrative Susanna Lozada MA - 10/19/2024 11:14 AM CDT Susanna Lozada MA 10/19/2024 2:24 PM Bladder scan completed. 39 ml post void residual. us Ney Hammer PROCEDURE/MINOR SURGICAL ORDERAB LES Final Result * (ABNORMAL) BASIC METABOLIC PANEL (CALCIUM TOTAL) (02/02/2018 2:34 AM CDT) BUN 9 7 - 26 mg/dL 02/02/2018 3:09 AM [facility] Creatinine 0.9 0.6 - 1.2 mg/dL 02/02/2018 3:09 AM [facility] Sodium 136 136 - 145 mmol/L 02/02/2018 3:09 AM [facility] Potassium 4.1 3.5 - 4.5 mmol/L 02/02/2018 3:09 AM [facility] Chloride 98 98 - 107 mmol/L 02/02/2018 3:09 AM [facility] CO2 26 22 - 29 mmol/L 02/02/2018 3:09 AM [facility] Glucose 122(H) 70 - 115 mg/dL 02/02/2018 3:09 AM [facility] Calcium 8.9 8.4 - 10.2 mg/dL 02/02/2018 3:09 AM [facility] Anion Gap 16 8 - 18 02/02/2018 3:09 AM [facility] BUN/Creatinine Ratio 10 7 - 23 02/02/2018 3:09 AM CDT [facility] Osmolality Calculated 282 270 - 300 mOsm/kg 02/02/2018 3:09 AM CDT [facility] eGFR >60 >60 mL/min/1.7 3 m2 02/02/2018 3:09 AM T [facility] Blood BLOOD SPECIMEN / Unknown Lab Venipuncture / Unknown 02/02/2018 2:34 AM CDT 02/02/2018 2:46 AM CDT us Zoya Lamar MD LAB - CHEMISTRY ORDERABLES Final Result [facility] [address] [phone] from Last 3 Months or Most Recently Relevant to Health Maintenance Insurance [facility] [place] [address] [facility] SELF PAY NO INSURANCE Member Subscriber Plan / Payer (Ef fective for All Dates) Name:Anders Tapia Member ID:Not on file Relation to Subscriber:Not on file Name:ANDERS TAPIA Subscriber ID:Not on file Phone: (Home) Address: [address] [address] Payer ID:Not on file Group ID:Not on file Type:Self Pay Address: [place], [place] [facility] SELF PAY NO INSURANCE Member Subscriber Plan / Payer (Ef fective for All Dates) Name:Anders Tapia Member ID:Not on file Relation to Subscriber:Not on file Name:ANDERS TAPIA Subscriber ID:Not on file Phone: (Home) Address: [address] [address] Payer ID:Not on file Group ID:Not on file Type:Self Pay Address: [place], [place] [facility] SELF PAY NO INSURANCE Member Subscriber Plan / Payer (Ef fective for All Dates) Name:Anders Tapia Member ID:Not on file Relation to Subscriber:Not on file Name:ANDERS TAPIA Subscriber ID:Not on file Phone: (Home) Address: [address] [address] Payer ID:Not on file Group ID:Not on file Type:Self Pay Address: [place] SELF PAY NO INSURANCE Member Subscriber Plan / Payer (Ef fective for All Dates) Name:Anders Tapia Member ID:Not on file Relation to Subscriber:Not on file Name:ANDERS TAPIA Subscriber ID:Not on file (Home) Address: [address] [address] Payer ID:Not on file Group ID:Not on file Type:Self Pay Address: [place] [facility] SELF PAY NO INSURANCE Member Subscriber Plan / Payer (Ef fective for All Dates) Name:Anders Tapia Member ID:Not on file Relation to Subscriber:Not on file Name:ANDERS TAPIA Subscriber ID:Not on file (Home) Address: [address] [address] Payer ID:Not on file Group ID:Not on file Type:Self Pay Address: [place], [place] Advance Directives * Full Code (Latest Code [...] 5:09 PM 07/03/2015 3:30 PM Care Teams Poultry Dresser Relationship Specialty Start Date End Date Brian Bryson MD [address] [place] [address] [facility] - General 05/21/18
--- OUTSIDE RECORDS SUMMARY | 2024-11-28 10:11 | XMS_ITS | Encounter Summary ---
Author Organization [facility] Address [address] [place] [address] Phone Care Team Providers Care Service Team Leader Name Role Phone Brian Bryson MD Primary Care Provider [phone] Harvey Jaimes MD Unavailable [phone] Lucas Lopez MD Unavailable [phone] Reason for Visit * Reason Comments Medication Refill Encounter Details Date Type Department Care Team (Late st Contact Info) Description 04/03/2022 Refill [facility] [address] [place] [address] Harvey Jaimes MD [address] [address] Medication Refill Social History Tobacco [...] AM CDT Lab [facility] [address] [phone] Lab, [facility] 05/06/2025 11:30 AM CDT Office Visit [facility] [address] [phone] Harvey Jaimes MD [facility] [address] documented as of this encounter Visit Diagnoses Diagnosis Anemia of unknown etiology Anemia, unspecified documented in this encounter Additional Health Concerns Assessment Noted Time PHQ-9 Depression Total Score: 0 12/08/19 1:48 PM CDT documented as of this encounter Care Teams Service Team Leader Relationship Specialty Start Date End Date Brian Bryson MD [address] [place] [address] PCP - General Family Medicine 11/14/20 Harvey Jaimes MD [address] [place] [phone] Consulting Physician Oncology 10/18/21 Lucas Lopez MD [address] [place] [address] Gastroenterology 03/06/22 documented as of this encounter
--- OUTSIDE RECORDS SUMMARY | 2024-11-28 10:11 | XMS_ITS | Encounter Summary ---
Author Organization [facility] Address [address] [place] [address] Phone Care Team Providers Care Farm Mechanic Apprentice Name Role Phone Brian Bryson MD Primary Care Provider [phone] Harvey Jaimes MD Unavailable [phone] Lucas Lopez MD Unavailable [phone] Reason for Visit * Reason Comments Medication Refill Encounter Details Date Type Department Care Team (Late st Contact Info) Description 10/14/2023 Refill [facility] [address] [place] [address] Harvey Jaimes MD [address] [address] Medication Refill Social History Tobacco [...] 11:15 AM CDT Lab [facility] [address] [address] Lab, [facility] 05/06/2025 11:30 AM CDT Office [facility] [address] [address] Harvey Jaimes MD [address] [address] documented as of this encounter Visit Diagnoses Diagnosis Anemia of unknown etiology Anemia, unspecified documented in this encounter Additional Health Concerns Assessment Noted Time PHQ-9 Depression Total Score: 0 12/08/19 21 1:48 PM CDT documented as of this encounter Care Teams Farm Mechanic Apprentice Relationship Specialty Start Date End Date Brian Bryson MD [address] [place] [address] PCP - General Family Medicine 11/14/20 Harvey Jaimes MD [address] [place] [phone] Consulting Physician Oncology 10/18/21 Lucas Lopez MD [address] [place] [address] Gastroenterology 03/06/22 documented as of this encounter
--- OUTSIDE RECORDS SUMMARY | 2024-11-28 10:11 | XMS_ITS | Encounter Summary ---
Author Organization [facility] Address [address] [place] [address] Phone Care Team Providers Care Bag Sealer Name Role Phone Brian Bryson MD Primary Care Provider [phone] Harvey Jaimes MD Unavailable [phone] Lucas Lopez MD Unavailable [phone] Reason for Visit * Reason Comments Medication Refill Encounter Details Date Type Department Care Team (Late st Contact Info) Description 04/21/2023 Refill [facility] [address] [place] [address] Harvey Jaimes MD [address] [address] Medication Refill Social History [...] AM CDT Lab [facility] [address] [phone] Lab, [facility]c [facility] 05/06/2025 11:30 AM CDT Office Visit [facility] [address] [phone] Harvey Jaimes MD [facility] [address] documented as of this encounter Visit Diagnoses Diagnosis Anemia of unknown etiology Anemia, unspecified documented in this encounter Additional Health Concerns Assessment Noted Time PHQ-9 Depression Total Score: 0 12/08/19 1:48 PM CDT documented as of this encounter Care Teams Bag Sealer Relationship Specialty Start Date End Date Brian Bryson MD [address] [place] [address] PCP - General Family Medicine 11/14/20 Harvey Jaimes MD [address] [place] [phone] Consulting Physician Oncology 10/18/21 Lucas Lopez MD [address] [place] [address] Gastroenterology 03/06/22 documented as of this encounter
== END 2024-11-28 10:07 | disposition home or self-care (01) ==
PROVIDERS: PCP Emergency Medicine; Visit Provider Psychiatry & Neurology Neurology
DX: M47.812 Spondylosis without myelopathy or radiculopathy, cervical region (principal)
CPT/HCPCS: 72141